=== PATIENT | female | born 1960 | race Hispanic/Latino ===

== ENCOUNTER 2021-09-15 13:44 | Emergency (ER) | payer OTHER ==
--- OUTSIDE RECORDS SUMMARY | 2021-09-15 13:49 | XMS REPORT | Continuity of Care Document ---
:1960 Author Organization [facility] t Address [address] [place] [address] Care Team Providers Name Role Phone BACCAM Primary Care Physician Unavailable DR SEDA Attending Clinician Unavailable [phone] Attending Clinician Unavailable [id number] Attending Clinician Unavailable DR Anastasia PURVIS Attending Clinician Unavailable Ahmed, Sampson Attending Clinician Unavailable Anastasia Nino Attending Clinician Unavailable DR DAMIÁN Attending Clinician Unavailable Susan Mcgregor Attending Clinician Unavailable DR NASREEN Attending Clinician Unavailable DR Anjana GIL Attending Clinician Unavailable Ofelia Attending Clinician Unavailable DR BEATRIZ Attending Clinician Unavailable DR Jaun HENDERSON Attending Clinician Unavailable DR Irasema MASON Attending Clinician Unavailable DR Andressa BENITES Attending Clinician Unavailable RASHAAD, Attending Clinician Unavailable DR ZARA Attending Clinician Unavailable DR SARIKA Attending Clinician Unavailable DR MEGAN Attending Clinician Unavailable DR MIGUEL ANGEL Attending Clinician Unavailable DR Jaylene CALLES Attending Clinician Unavailable DR SEDA Admitting Clinician Unavailable DR Anastasia PURVIS Admitting Clinician Unavailable Balbir, Sampson Admitting Clinician Unavailable Physician, Primary or Family Admitting Clinician Unavailyusef STEEL DR Admitting Clinician Unavailable Susan Mcgregor Admitting Clinician Unavailable DR NASREEN Admitting Clinician Unavailable DR Anjana GIL Admitting Clinician Unavailable Ofelia Admitting Clinician Unavailable DR BEATRIZ Admitting Clinician Unavailable DR Jaun HENDERSON Admitting Clinician Unavailable DR Irasema MASON Admitting Clinician Unavailable DR Andressa BENITES Admitting Clinician Unavailable DR RASHAAD Admitting Clinician Unavailable DR ZARA Admitting Clinician Unavailable DR SARIKA Admitting Clinician Unavailable DR MEGAN Admitting Clinician Unavailable DR MIGUEL ANGEL Admitting Clinician Unavailable DR Jaylene CALLES Admitting Clinician Unavailable Payers Payer Name Policy Type Policy Number Effective Date Expiration Date Jaylene galarza MEDICARE - OP [id number] MEDICARE - OP [id number] MEDICARE - OP [id number] 2021 00:00:00 [id number] 2021 00:00:00 0700 [id number] 2015 00:00:00 [place]IC[place]: [id number] 2003 [employer] [facility] 00:00:00 [facility] [id number] 2016 [facility] 00:00:00 PLUS - SKILLED NURSING CARE Problems Condition Condition Condition Status Onset Resolution Last Treating Co mments Source Name Details Category Date Date Treatment Clinician Date Bipolar II Bipolar II Problem Active M [facility] disorder Disorder 09-17 [facility] Allergies, Adverse Reactions, Alerts Allergy Allergy Status Severity Reaction(s) Onset Inactive Treating Comm ents Source Name Type Date Date Clinician aspirin DA Active U UNKNOWN [facility] 04-27 [place] 00:00: [facility] 00 are [facility] ASPIRIN DA Active SEVERE rash [facility] No Known MA Active UNKNOWN [facility] Gabapent DA Active Unknown [facility] IV Dye, DA Active Unknown [facility] Aspirin DA Active Unknown [facility] GABAPENT DA Active SEVERE rash [place] [facility] Social History Smoking Status Start Date Stop Date Source Heavy Tobacco Smoker [facility] Medications Ordered Filled Start Stop Current Ordering Indication Dosage Frequency Signature Comments Components Source Medication Medication Date Date Medication? Clinician (SIG) Name Name acetaminoph acetaminoph No acetaminop [place] en 300 en 300 hen 300 da mg-codeine mg-codeine mg-codeine [facility] 30 mg 30 mg 30 mg al tablet tablet tablet [facility] acetaminoph acetaminoph No acetaminop [place] en 320.5 en 320.5 hen 320.5 da mg-caffeine mg-caffeine mg-caffein [facility] 30 30 e 30 al mg-dihydroc mg-dihydroc mg-dihydro Health odeine 16 odeine 16 codeine 16 Outreac mg capsule mg capsule mg capsule h Program alprazolam alprazolam No alprazolam [place] 0.25 mg 0.25 mg 0.25 mg da tablet tablet tablet [facility] alprazolam alprazolam No alprazolam [place] 0.5 mg 0.5 mg 0.5 mg da tablet tablet tablet [facility] amoxicillin amoxicillin No amoxicilli [place] 500 mg 500 mg n 500 mg da capsule capsule capsule [facility] bromphenira bromphenira No bromphenir [place] mine-pseudo mine-pseudo amine-pseu da ephedrine-D ephedrine-D doephedrin [facility] M 2 mg-30 M 2 mg-30 e-DM 2 al mg-10 mg/5 mg-10 mg/5 mg-30 He alth mL oral mL oral mg-10 mg/5 Out reac syrup syrup mL oral h syrup Program cefuroxime cefuroxime No cefuroxime [place] axetil 250 axetil 250 axetil 250 da mg tablet mg tablet mg tablet [facility] Chantix 1 Chantix 1 No Chantix 1 [place] mg tablet mg tablet mg tablet da [facility] ciprofloxac ciprofloxac No ciprofloxa [place] in 500 mg in 500 mg jenna 500 mg da tablet tablet tablet [facility] citalopram citalopram No citalopram [place] 20 mg 20 mg 20 mg da tablet tablet tablet [facility] clotrimazol clotrimazol No clotrimazo [place] e 1 % e 1 % le 1 % da topical topical topical [facility] cream cream cream ga [facility] Constulose Constulose No Constulose [place] 10 gram/15 10 gram/15 10 gram/15 da mL oral mL oral mL oral [facility] solution solution solution ga [facility] cyclobenzap cyclobenzap No cyclobenza [place] rine 10 mg rine 10 mg yenny 10 da tablet tablet mg tablet [facility] doxycycline doxycycline No doxycyclin [place] hyclate 100 hyclate 100 e hyclate da mg tablet mg tablet 100 mg Epi scop tablet al [facility] Program doxycycline doxycycline No doxycyclin [place] monohydrate monohydrate e d a 100 mg 100 mg monohydrat [facility] op capsule capsule e 100 mg al capsule Health Outre[facility] Program doxycycline doxycycline No doxycyclin [place] monohydrate monohydrate e d a 100 mg 100 mg monohydrat [facility] op tablet tablet e 100 mg al tablet [facility] Out[facility] Program fenoprofen fenoprofen No fenoprofen [place] 600 mg 600 mg 600 mg da tablet tablet tablet [facility] furosemide furosemide No furosemide [place] 20 mg 20 mg 20 mg da tablet tablet tablet [facility] gentamicin gentamicin No gentamicin [place] 0.1 % 0.1 % 0.1 % da topical topical topical [facility] ointment ointment ointment al [facility] griseofulvi griseofulvi No griseofulv [place] n microsize n microsize in d a 500 mg 500 mg microsize [facility] tablet tablet 500 mg al tablet [facility] hydrocodone hydrocodone No hydrocodon [place] 10 10 e 10 da mg-acetamin mg-acetamin mg-acetami [facility] ophen 325 ophen 325 nophen 325 al mg tablet mg tablet mg tablet [facility] hydroxyzine hydroxyzine No hydroxyzin [place] HCl 25 mg HCl 25 mg e HCl 25 d a tablet tablet mg tablet [facility] lithium lithium No lithium [place] carbonate carbonate carbonate da 150 mg 150 mg 150 mg [facility] capsule capsule capsule al [facility] nitrofurant nitrofurant No nitrofuran [place] oin oin toin da macrocrysta macrocrysta macrocryst [facility] l 100 mg l 100 mg al 100 mg al capsule capsule capsule [facility] Program pantoprazol pantoprazol No pantoprazo [place] e 20 mg e 20 mg le 20 mg da tablet,lennie tablet,lennie tablet,del [facility] yed release yed release ayed a l release [facility] Program pantoprazol pantoprazol No pantoprazo [place] e 40 mg e 40 mg le 40 mg da tablet,lennie tablet,lennie tablet,del [facility] yed release yed release ayed a l release [facility] prednisone prednisone No prednisone [place] 10 mg 10 mg 10 mg da tablet tablet tablet [facility] quetiapine quetiapine No quetiapine [place] ER 150 mg ER 150 mg ER 150 mg da tablet,exte tablet,exte tablet,ext [facility] nded nded ended al release 24 release 24 release 24 Health hr hr hr Outreac h Program risperidone risperidone No risperidon [place] 0.5 mg 0.5 mg e 0.5 mg da tablet tablet tablet [facility] sulfamethox sulfamethox No sulfametho [place] azole 800 azole 800 xazole 800 da mg-trimetho mg-trimetho mg-trimeth [facility] prim 160 mg prim 160 mg oprim 160 al tablet tablet mg tablet Health Outre h Program tramadol 50 tramadol 50 No tramadol [place] mg tablet mg tablet 50 mg da tablet [facility] Ventolin Ventolin No Ventolin [place] HFA 90 HFA 90 HFA 90 da mcg/actuati mcg/actuati mcg/actuat [facility] on aerosol on aerosol ion al inhaler inhaler aerosol Health inhaler Outre h Program Vital Signs Vital Name Observation Time Observation Value Comments Source Height 2021-07-21 00:32:00 154.94 CM Weight 2021-07-21 00:32:00 92.98 KG Height 2021-05-27 05:57:00 154.94 CM Weight 2021-05-27 05:57:00 99.79 KG Height 2021-03-29 00:16:00 154.94 CM Weight 2021-03-29 00:16:00 107.04 KG Height 2021-03-09 00:30:00 154.94 CM Weight 2021-03-09 00:30:00 107.04 KG Height 2021-01-26 00:20:00 154.94 CM Weight 2021-01-26 00:20:00 107.04 KG Height 2019-04-03 13:59:00 154.94 CM Weight 2019-04-03 13:59:00 101.6 KG Height 2019-03-27 15:56:00 154.94 CM Weight 2019-03-27 15:56:00 101.6 KG Height 2018-07-18 18:06:00 154.94 CM Weight 2018-07-18 18:06:00 106.14 KG Procedures Procedure Date / Time Performed Performing Clinician [facility] shar [id number] 2021-05-30 00:00:00 CHAKR.05 [facility] [id number] 2021-05-30 00:00:00 CHAKR.05 [facility] [id number] 2021-05-30 00:00:00 CHAKR.05 [facility] [id number] 2021-05-30 00:00:00 CHAKR.05 [facility] [id number] 2021-05-30 00:00:00 CHAKR.05 [facility] [id number] 2021-05-30 00:00:00 CHAKR.05 [facility] [id number] 2021-05-30 00:00:00 MUM [facility] [id number] 2021-04-27 00:00:00 [facility] Encounters Start End Encounter Admission Attending Care Care Encounter Source Date/Time Date/Time Type Type Clinicians Facility Department ID 2021-08-13 Outpatient VERA STACKPO [id number] [place] 08:50:33 [id number] [place] [id number] 2021-07-14 Outpatient ELCARSONPO ELCAMPO [id number] [place] 09:53:28 [id number] [facility] 2021-05-14 Outpatient [facility] [id number] [facility] 17:18:15 [id number] [facility] 2021-08-14 2021-08-14 Outpatient VERA COREY [facility] [id number] [place] 08:51:00 08:51:00 [id number] [place] [facility] [id number] [facility] 2021-07-21 2021-07-21 Outpatient Shar PURVIS Omar [facility] [id number] [facility] 00:29:00 02:15:00 [facility] 2021-07-14 2021-07-14 Outpatient M VERA STACKPO [facility] [id number] [place] 10:03:00 20:46:00 [id number] [place] [facility] [id number] [facility] 2021-05-28 2021-05-31 Inpatient EM Ahmed, [facility] INTM.01 BP30 [id number] [facility] 20:04:00 19:00:00 [id number] [facility] are [facility] 2021-05-28 2021-05-31 Inpatient EM Ahmed, [facility] INTM.01 BP00 [id number] [facility] 20:04:00 19:00:00 90 [facility] are [facility] 2021-05-28 2021-05-28 Outpatient DONAVAN NinoNW REF [id number] [facility] 19:16:00 19:16:00 Henrique [id number] [facility] are [facility] 2021-05-27 2021-05-27 Outpatient Shar STEEL [facility] [id number] [facility] 05:48:00 07:50:00 SHREYAS [facility] 2021-05-14 2021-05-19 Inpatient EL Penniemed, [facility] ADMI BP30 [id number] [facility] 14:05:00 10:58:00 [id number] [facility] are [facility] 2021-05-14 2021-05-19 Inpatient EL Ahmed, [facility] ADMI [id number] [facility] 14:05:00 10:58:00 47 [facility] are [facility] 2021-05-15 2021-05-15 Outpatient Balbir, [facility] HCANW REF [id number] [facility] 15:56:00 15:56:00 [id number] [facility] are [facility] 2021-04-27 2021-04-27 Inpatient EL Ahmed, [facility] MEDI.01 BP30 [id number] [facility] 08:33:00 11:30:00 [id number] [facility] are [facility] 2021-03-29 2021-03-29 Outpatient MARCI CHEUNG [facility] [id number] [facility] 00:05:00 01:13:00 [facility] 2021-03-09 2021-03-09 Outpatient E JEFFERY, [facility] [id number] [facility] 00:24:00 03:18:00 WALLACE [facility] 2021-01-26 2021-01-26 Outpatient E JEFFERY [facility] [id number] [facility] 00:17:00 01:23:00 [facility] 2020-01-18 2020-01-18 Outpatient Benson_Donn SULLIVANHOP CAHOP [id number] [place] 11:45:00 11:45:00 e [id number] [facility] 2019-04-29 2019-04-29 Outpatient Benson_Donn SULLIVANHOP MEHOP [id number] [place] 03:23:00 03:23:00 e [id number] [facility] 2019-04-03 2019-04-03 Outpatient E STEEL, [facility] [id number] [facility] 13:52:00 14:48:00 SHREYAS [facility] 2019-03-27 2019-03-27 Outpatient E BEATRIZ, [facility] [id number] [facility] 15:56:00 17:00:00 ANIBAL [facility] 2019-03-02 2019-03-02 Leonid ENRIQUE [place] - [id number] M [facility] 00:00:00 00:00:[address] da 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 2019-01-27 2019-01-27 Outpatient E BEATRIZ [facility] [id number] [facility] 08:52:00 09:30:00 ANIBAL [facility] 2019-01-09 2019-01-09 Outpatient E BEATRIZ [facility] [id number] [facility] 13:23:00 14:00:00 [facility] 2018-12-30 2018-12-31 Outpatient E MARCI DOWNEY [facility] [id number] [facility] 22:58:00 00:30:00 [facility] 2018-12-27 2018-12-27 Outpatient E MARCI DOWNEY [facility] [id number] [facility] 20:15:00 20:51:00 [facility] 2018-12-21 2018-12-21 Outpatient E JONI HENDERSON [facility] [id number] [facility] 14:57:00 16:29:00 [facility] 2018-12-16 2018-12-16 Outpatient E MARLON [facility] [id number] [facility] 18:53:00 19:21:00 DOMINIQUE [facility] 2018-12-15 2018-12-15 Outpatient E BEATRIZ [facility] [id number] [facility] 19:25:00 20:35:00 [facility] 2018-12-10 2018-12-10 Outpatient E BENITES, [facility] [id number] [facility] 20:55:00 21:30:00 PAWAN [facility] 2018-12-09 2018-12-09 Outpatient E LILA NEIL [facility] [id number] [facility] 16:33:00 17:20:00 [facility] 2018-11-21 2018-11-21 Outpatient E ZARA [facility] [id number] [facility] 21:31:00 21:43:00 HASAN [facility] 2018-11-21 2018-11-21 Outpatient E SHEIKH [facility] [id number] [facility] 04:48:00 05:58:00 WASIM [facility] 2018-11-10 2018-11-11 Outpatient E SHEIKH [facility] [id number] [facility] 23:41:00 01:16:00 WASIM [facility] 2018-11-07 2018-11-07 Outpatient E BEATRIZ [facility] [id number] [facility] 15:27:00 16:34:00 ANIBAL [facility] 2018-11-02 2018-11-02 Outpatient E LILA NEIL [facility] [id number] [facility] 20:45:00 22:15:00 [facility] 2018-10-31 2018-10-31 Outpatient E JONI HENDERSON [facility] [id number] [facility] 21:09:00 22:45:00 [facility] 2018-10-29 2018-10-29 Outpatient E BENITES, [facility] [id number] [facility] 22:10:00 22:46:00 [facility] 2018-10-27 2018-10-27 Outpatient E MARCI DOWNEY [facility] [id number] [facility] 20:01:00 21:21:00 [facility] 2018-10-15 2018-10-15 Outpatient E PURVIS [facility] [id number] [facility] 14:34:00 16:32:00 [facility] 2018-10-08 2018-10-08 Outpatient E ANGELINA GUZMAN [facility] [id number] [facility] 13:41:00 18:34:00 [facility] 2018-10-07 2018-10-07 Outpatient E MARCI DOWNEY [facility] [id number] [facility] 20:39:00 21:52:00 [facility] 2018-09-16 2018-09-17 Outpatient E JONI HENDERSON [facility] [id number] [facility] 23:49:00 01:16:00 [facility] 2018-09-14 2018-09-14 Outpatient E BEATRIZ [facility] [id number] [facility] 21:26:00 22:27:00 ANIBAL [facility] 2018-09-01 2018-09-01 Outpatient E LILA NEIL [facility] [id number] [facility] 20:57:00 22:19:00 [facility] 2018-09-01 2018-09-01 Outpatient E LAUREANO MICHELLE [facility] [id number] [facility] 16:36:00 18:35:00 [facility] 2018-08-27 2018-08-27 Outpatient E BA, LILA [facility] [id number] [facility] 21:54:00 23:02:00 [facility] 2018-08-24 2018-08-24 Outpatient E JONI HENDERSON [facility] [id number] [facility] 19:52:00 20:35:00 [facility] 2018-08-11 2018-08-11 Outpatient E POTMYRTLE, [facility] [id number] [facility] 22:29:00 22:55:00 BETTY [facility] 2018-07-26 2018-07-26 Outpatient E EBATRIZ [facility] [id number] [facility] 15:46:00 17:10:00 [facility] 2018-07-20 2018-07-20 Outpatient E MARLON, [facility] [id number] [facility] 16:09:00 18:05:00 [facility] 2018-07-18 2018-07-18 Outpatient E BEATRIZ [facility] [id number] [facility] 18:00:00 19:54:00 [facility] 2018-[facility]-18 2018-07-18 Outpatient E [facility] [id number] [facility] 18:05:00 18:05:00 [facility] 2018-07-16 2018-07-16 Outpatient E RASHAAD, LILA [facility] [id number] [facility] 18:21:00 19:20:00 [facility] 2018-07-04 2018-07-04 Outpatient E POTMYRTLE, [facility] [id number] [facility] 19:44:00 21:18:00 BETTY [facility] 2018-06-05 2018-06-05 Outpatient E JONI HENDERSON [facility] [id number] [facility] 19:35:00 21:08:00 [facility] Results Test Description Test Time Test Comments Results Result [facility] e Comments CT CHEST W/O 2021-07-21 CONTRAST *OW* 01:26:17 [facility] : 1960 Sex: F Ex am: CT thorax without contrast.Location: H 12History: Rib painTechnique: Unenhanced slices were taken from the apices of the lungs, through the upper abdomen. Sagittal and coronal reformations were performed. One or more of the following dose reduction techniques were used: Automated exposure control, adjustment of the mA and/or kV according to patient size, and/or utilization of iterative reconstruction technique.Findings:Th e lungs are emphysematous but clear. NNo infiltration or effusion is seen. No mass or nodule is seen.The pulmonary vasculature is normal. No pulmonary venous congestion or arterial hypertension is seen.The mediastinum and the pulmonary royce are normal. No lymphadenopathy is present. The heart size is enlarged with coronary artery calcifications noted. No pericardial effusion is seen.Anterior left 6th and 7th rib fractures are noted.The visualized upper abdominal organs are unremarkable. A right hepatic cyst is notedNo incidental thyroid nodules are noted.Impression: 1. Left 6th and 7th rib fractures.2. No acute disease.3. COPD4. Cardiomegaly with CAD.Electronically signed by: Misbah Colindres MD 07/21/2021 1:26 AM CDT CBC W/AUTO DIFF 2021-05-31 05:18:00 Test Item Value Reference Range Interpretation Comme nts WHITE BLOOD CELL (test code = WBC) 8.7 x10 3/uL 4.8-10.8 N RED BLOOD CELL (test code = RBC) 2.65 x10 6/uL 4.20-5.40 L HEMOGLOBIN (test code = HGB) 10.2 g/dL 12.0-16.0 L HEMATOCRIT (test code = HCT) 31.8 % 37.0-47.0 L MEAN CELL VOLUME (test code = MCV) 120.0 fL 81.0-99.0 H MEAN CELL HGB (test code = MCH) 38.5 pg 27-31 H MEAN CELL HGB CONCENTRATION (test code = MCHC) 32.1 G/DL 33-36.5 L RED CELL DISTRIBUTION WIDTH (test code = RDW) 14.4 % 12.9-16. 9 N PLATELET COUNT (test code = PLT) 157 x10 3/uL 150-440 N MEAN PLATELET VOLUME (test code = MPV) 10.8 fL 8.9-12.4 N NEUTROPHIL % (test code = NT%) 71.8 % 42.2-75.2 N LYMPHOCYTE % (test code = LY%) 18.0 % 20.5-51.1 L MONOCYTE % (test code = MO%) 7.0 % 1.7-9.3 N EOSINOPHIL % (test code = EO%) 2.9 % 0.0-7.0 N BASOPHIL % (test code = BA%) 0.1 % 0-2.5 N NEUTROPHIL # (test code = NT#) 6.26 x10 3/uL 1.80-7.70 N LYMPHOCYTE # (test code = LY#) 1.57 x10 3/uL 1.00-4.80 N MONOCYTE # (test code = MO#) 0.61 x10 3/uL 0.00-0.80 N EOSINOPHIL # (test code = EO#) 0.25 x10 3/uL 0.00-0.45 N BASOPHIL # (test code = BA#) 0.01 x10 3/uL 0.0-0.20 N [id number] 23:23:00 Test Item Value Reference Range Interpretation Comments VANCOMYCIN (test code = VANCO) 13.2 mcg/mL COAGULATION TIME [id number] 17:31:00 Test Item Value Reference Range Interpretation Comments COAGULATION TIME ACTIVATED (test 291 SECONDS 74-137 H code = ACT) THROMBOPLASTIN TIME [id number] 13:25:00 Test Item Value Reference Range Interpretation Comments THROMBOPLASTIN TIME 115.0 SECONDS 23.8-34.8 HH Critica l Value PARTIAL (test code = reporte d toFirst PTT) Name:ASHA Last Name:ANA LTS READ BACK AND VERIFIEDby [facility] [id number], on 05/30/21, @ 6272.INTERPRETA TIVE DATA:Therapeuti c range: Unfractionated heparin:55 - 80 seconds Argatroban:1.5 to 3 times the basel ine PTT [id number] 13:25:00 Test Item Value Reference Range Interpretation Comments FIBRINOGEN (test code = FIB) 277 mg/dL 200-400 N BASIC METABOLIC [id number] 13:11:00 Test Item Value Reference Range Interpretation Comments SODIUM (test code 148 mmol/L 136-145 H Please not e: New = NA) Reference Range May 2020 POTASSIUM (test 3.6 mmol/L 3.5-5.1 N code = K) CHLORIDE (test 121 mmol/L 98-107 H Please note: New code = CL) Reference Range May 2020 CARBON DIOXIDE 23 mmol/L 20-31 N Please note: New (test code = CO2) Reference Range May 2020 GLUCOSE (test code 101 mg/dL 74-106 N Please no te: New = GLU) Reference Range May 2020 BLOOD UREA < 5 mg/dL 9-23 L Please note: Ne w NITROGEN (test Reference Ran ge Feb code = BUN) 2020 GLOMERULAR >=60 max >60 Units are FILTRATION RATE estimate mL/min mL/min/1. 73m2 The (test code = GFR) estimated glomerular filtration rate is computed usingpatient ra ce, age (>18), sex, and serum creatinin e. If anyof the neede d data elements a re missing the Laboratory lily ot compute an estimation of t he glomerular filtration rate . CREATININE (test 0.70 mg/dL 0.55-1.02 N Please note : New code = CREAT) Reference Rang e May 2020 CALCIUM (test code 8.3 mg/dL 8.7-10.4 L Please no te: New = CA) Reference Range May 2020 CBC W/AUTO [id number] 12:14:00 Test Item Value Reference Range Interpretation Comments WHITE BLOOD CELL (test code = 8.0 x10 3/uL 4.8-10.8 N WBC) RED BLOOD CELL (test code = 2.70 x10 6/uL 4.20-5.40 L RBC) HEMOGLOBIN (test code = HGB) 10.5 g/dL 12.0-16.0 L HEMATOCRIT (test code = HCT) 32.2 % 37.0-47.0 L MEAN CELL VOLUME (test code = 119.3 fL 81.0-99.0 H MCV) MEAN CELL HGB (test code = MCH) 38.9 pg 27-31 H MEAN CELL HGB CONCENTRATION 32.6 G/DL 33-36.5 L (test code = MCHC) RED CELL DISTRIBUTION WIDTH 14.3 % 12.9-16.9 N (test code = RDW) PLATELET COUNT (test code = 192 x10 3/uL 150-440 N PLT) MEAN PLATELET VOLUME (test code 10.6 fL 8.9-12.4 N = MPV) NEUTROPHIL % (test code = NT%) 67.0 % 42.2-75.2 N LYMPHOCYTE % (test code = LY%) 20.4 % 20.5-51.1 L MONOCYTE % (test code = MO%) 5.9 % 1.7-9.3 N EOSINOPHIL % (test code = EO%) 5.9 % 0.0-7.0 N BASOPHIL % (test code = BA%) 0.5 % 0-2.5 N NEUTROPHIL # (test code = NT#) 5.35 x10 3/uL 1.80-7.70 N LYMPHOCYTE # (test code = LY#) 1.63 x10 3/uL 1.00-4.80 N MONOCYTE # (test code = MO#) 0.47 x10 3/uL 0.00-0.80 N EOSINOPHIL # (test code = EO#) 0.47 x10 3/uL 0.00-0.45 H BASOPHIL # (test code = BA#) 0.04 x10 3/uL 0.0-0.20 N RECOLLECTVANCOMYCIN [id number] 22:10:00 Test Item Value Reference Range Interpretation Comments VANCOMYCIN TROUGH (test code = 30.3 mcg/dL 10.0-20.0 H VANCT) PROTHROMBIN [id number] 21:12:00 Test Item Value Reference Range Interpretation Comments PROTHROMBIN TIME 11.5 SECONDS 10.3-12.9 N PATIENT (test code = PTP) INTERNATIONAL 1.01 INR UNIT 0.9-1.11 N The INR is us eful only NORMAL RATIO (test for monit oring code = INR) anticoagulant therapy.It may be unreliable in t he initial phase o f antigoagulation and in unstable patien ts. Indication for Anticoagulation Recommend ed INR 1. Prevention o f venous thomboembolism 2.0-3.0in high -risk patients; treat ment of venousthrombosi s and pulmonary embol ism aftera course o f heparin; preven tion of systemicembolis m in a variety of cond itions, including atria l fibrillation an d prothetic tissu e heart valves, 2. Pros thetic mechanical hear t valves; 2.5-3.5recurren t systemic emboli sm. RECOLLECTTHROMBOPLASTIN TIME [id number] 21:12:00 Test Item Value Reference Interpretation Comments Range THROMBOPLASTIN TIME 54.3 SECONDS 23.8-34.8 H SAMPLE W RECOLLECTED PARTIAL (test code AND MATCH ES PREVIOUS = PTT) RESULTINTERPRET ATIVE DATA:Therapeuti c range: Unfractionated heparin:55 - 80 seconds Argatroban:1.5 to 3 times the baseline PT T RECOLLECTCBC W/AUTO [id number] 05:02:00 Test Item Value Reference Range Interpretation Comments WHITE BLOOD CELL (test code = 6.9 x10 3/uL 4.8-10.8 N WBC) RED BLOOD CELL (test code = 2.72 x10 6/uL 4.20-5.40 L RBC) HEMOGLOBIN (test code = HGB) 10.3 g/dL 12.0-16.0 L HEMATOCRIT (test code = HCT) 31.6 % 37.0-47.0 L MEAN CELL VOLUME (test code = 116.2 fL 81.0-99.0 H MCV) MEAN CELL HGB (test code = MCH) 37.9 pg 27-31 H MEAN CELL HGB CONCENTRATION 32.6 G/DL 33-36.5 L (test code = MCHC) RED CELL DISTRIBUTION WIDTH 13.7 % 12.9-16.9 N (test code = RDW) PLATELET COUNT (test code = 189 x10 3/uL 150-440 N PLT) MEAN PLATELET VOLUME (test code 11.2 fL 8.9-12.4 N = MPV) NEUTROPHIL % (test code = NT%) 52.4 % 42.2-75.2 N LYMPHOCYTE % (test code = LY%) 33.2 % 20.5-51.1 N MONOCYTE % (test code = MO%) 8.3 % 1.7-9.3 N EOSINOPHIL % (test code = EO%) 5.4 % 0.0-7.0 N BASOPHIL % (test code = BA%) 0.6 % 0-2.5 N NEUTROPHIL # (test code = NT#) 3.60 x10 3/uL 1.80-7.70 N LYMPHOCYTE # (test code = LY#) 2.28 x10 3/uL 1.00-4.80 N MONOCYTE # (test code = MO#) 0.57 x10 3/uL 0.00-0.80 N EOSINOPHIL # (test code = EO#) 0.37 x10 3/uL 0.00-0.45 N BASOPHIL # (test code = BA#) 0.04 x10 3/uL 0.0-0.20 N RECOLLECTPROTHROMBIN [id number] 04:56:00 Test Item Value Reference Range Interpretation Comments PROTHROMBIN TIME 12.6 SECONDS 10.3-12.9 N PATIENT (test code = PTP) INTERNATIONAL 1.10 INR UNIT 0.9-1.11 N The INR is us eful only NORMAL RATIO (test for monit oring code = INR) anticoagulant therapy.It may be unreliable in t he initial phase o f antigoagulation and in unstable patien ts. Indication for Anticoagulation Recommend ed INR 1. Prevention o f venous thomboembolism 2.0-3.0in high -risk patients; treat ment of venousthrombosi s and pulmonary embol ism aftera course o f heparin; preven tion of systemicembolis m in a variety of cond itions, including atria l fibrillation an d prothetic tissu e heart valves, 2. Pros thetic mechanical hear t valves; 2.5-3.5recurren t systemic emboli sm. THROMBOPLASTIN TIME [id number] 04:56:00 Test Item Value Reference Range Interpretation Comments THROMBOPLASTIN TIME 128.4 SECONDS 23.8-34.8 HH Tristian l Value PARTIAL (test code = reporte d toFirst PTT) Name:JOS campuzano Name:ROBYN LOCKE READ BACK AND VERIFIEDby STAR ROGERS, on 05/29/21, @ 0369.INTERPRETA TIVE DATA:Therapeuti c range: Unfractionated heparin:55 - 80 seconds Argatroban:1.5 to 3 times the basel ine PTT BASIC METABOLIC [id number] 04:05:00 Test Item Value Reference Range Interpretation Comments SODIUM (test code 148 mmol/L 136-145 H Please not e: New = NA) Reference Range May 2020 POTASSIUM (test 3.3 mmol/L 3.5-5.1 L code = K) CHLORIDE (test 120 mmol/L 98-107 H Please note: New code = CL) Reference Range May 2020 CARBON DIOXIDE 18 mmol/L 20-31 L Please note: New (test code = CO2) Reference Range May 2020 GLUCOSE (test code 85 mg/dL 74-106 N Please no te: New = GLU) Reference Range May 2020 BLOOD UREA < 5 mg/dL 9-23 L Please note: Ne w NITROGEN (test Reference Ran ge Feb code = BUN) 2020 GLOMERULAR >=60 max >60 Units are FILTRATION RATE estimate mL/min mL/min/1. 73m2 The (test code = GFR) estimated glomerular filtration rate is computed usingpatient ra ce, age (>18), sex, and serum creatinin e. If anyof the neede d data elements a re missing the Laboratory lily ot compute an estimation of t he glomerular filtration rate . CREATININE (test 0.70 mg/dL 0.55-1.02 N Please note : New code = CREAT) Reference Rang e May 2020 CALCIUM (test code 7.4 mg/dL 8.7-10.4 L Please no te: New = CA) Reference Range May 2020 [id number] 04:02:00 Test Item Value Reference Range Interpretation Comments PHOSPHOROUS (test code 3.5 mg/dL 2.4-5.1 N Brigido kern note: New = PHOS) Reference Range May 2020 [id number] 04:02:00 Test Item Value Reference Range Interpretation Comments MAGNESIUM (test code = 1.8 mg/dL 1.6-2.6 N Pleas e note: New MAG) Reference Range May 2020 VANCOMYCIN [id number] 02:40:00 Test Item Value Reference Range Interpretation Comments VANCOMYCIN TROUGH (test code = 36.1 mcg/dL 10.0-20.0 H VANCT) LACTIC [id number] 00:53:00 Test Item Value Reference Range Interpretation Comments LACTIC ACID (test code = LACT) 1.50 mmol/L 0.5-2.0 N COVID 19 INHOUSE [id number] 22:11:00 Test Item Value Reference Range Interpretation Comments COVID 19 INHOUSE NEGATIVE NEGATIVE Negative re sults, from AG (test code = patients wit h symptom onset [id number]) beyondfive days , should be treated as pres umptive and confirmationwit h a molecular assay, if helena leal for patientmanageme nt, may be performed. Nega tive results do not ruleout COVID-19 and should not be u sed as the sole basis fort reatment or patient managem ent decisions, includinginfect ion control decisions. Nega tive results should beconsid ered in the context of a pa tient's recent exposure s,history and the presence of clinical signs and sympt omsconsistent with COVID-19. BASIC METABOLIC [id number] 19:38:00 Test Item Value Reference Range Interpretation Comments SODIUM (test code 143 mmol/L 136-145 N Please not e: New = NA) Reference Range May 2020 POTASSIUM (test 3.6 mmol/L 3.5-5.1 N code = K) CHLORIDE (test 115 mmol/L 98-107 H Please note: New code = CL) Reference Range May 2020 CARBON DIOXIDE 17 mmol/L 20-31 L Please note: New (test code = CO2) Reference Range May 2020 GLUCOSE (test code 90 mg/dL 74-106 N Please no te: New = GLU) Reference Range May 2020 BLOOD UREA < 5 mg/dL 9-23 L Please note: Ne w NITROGEN (test Reference Ran ge Feb code = BUN) 2020 GLOMERULAR >=60 max >60 Units are FILTRATION RATE estimate mL/min mL/min/1. 73m2 The (test code = GFR) estimated glomerular filtration rate is computed usingpatient ra ce, age (>18), sex, and serum creatinin e. If anyof the neede d data elements a re missing the Laboratory lily ot compute an estimation of t he glomerular filtration rate . CREATININE (test 0.80 mg/dL 0.55-1.02 N Please note : New code = CREAT) Reference Rang e May 2020 CALCIUM (test code 8.4 mg/dL 8.7-10.4 L Please no te: New = CA) Reference Range May 2020 LIVER FUNCTION [id number] 19:38:00 Test Item Value Reference Range Interpretation Comments TOTAL PROTEIN (test 7.0 g/dL 5.7-8.2 N Please n ote: New code = PROT) Reference Range May 2020 ALBUMIN (test code = 2.8 g/dL 3.2-4.8 L Please note: New ALB) Reference Range May 2020 BILIRUBIN TOTAL (test 0.3 mg/dL 0.3-1.2 N Please note: New code = BILT) Reference Range May 2020 BILIRUBIN DIRECT (test 0.1 mg/dL <0.3 N Pleas e note: New code = BILD) Reference Range May 2020 SGOT/AST (test code = 19 U/L <34 N Please note: New AST) Reference Range May 2020 SGPT/ALT (test code = 12 U/L 10-49 N Please note: New ALT) Reference Range May 2020 ALKALINE PHOSPHATASE 159 U/L 46-116 H Please note: New (test code = ALKP) Reference Range May 2020 PROTHROMBIN [id number] 19:38:00 Test Item Value Reference Range Interpretation Comments PROTHROMBIN TIME 11.4 SECONDS 10.3-12.9 N PATIENT (test code = PTP) INTERNATIONAL 1.00 INR UNIT 0.9-1.11 N The INR is us eful only NORMAL RATIO (test for monit oring code = INR) anticoagulant therapy.It may be unreliable in t he initial phase o f antigoagulation and in unstable patien ts. Indication for Anticoagulation Recommend ed INR 1. Prevention o f venous thomboembolism 2.0-3.0in high -risk patients; treat ment of venousthrombosi s and pulmonary embol ism aftera course o f heparin; preven tion of systemicembolis m in a variety of cond itions, including atria l fibrillation an d prothetic tissu e heart valves, 2. Pros thetic mechanical hear t valves; 2.5-3.5recurren t systemic emboli sm. THROMBOPLASTIN TIME [id number] 19:38:00 Test Item Value Reference Range Interpretation Comments THROMBOPLASTIN TIME 31.6 SECONDS 23.8-34.8 N INTERPRE TATIVE PARTIAL (test code = DATA:peutic PTT) range: Unfractionated heparin:55 - 80 seconds Argatroban:1.5 to 3 times the basel ine PTT [id number] 19:38:00 Test Item Value Reference Range Interpretation Comments FIBRINOGEN (test code = FIB) 317 mg/dL 200-400 N LACTIC [id number] 19:35:00 Test Item Value Reference Range Interpretation Comments LACTIC ACID (test 4.40 mmol/L 0.5-2.0 HH Critical V alue reported code = LACT) toFirst Name:deandre gallo Last Name:shogb sheba rnRESULTS READ BACK AND VERIFIEDby STAR MOSHER, on 05/28/21, @ 193 5. - XR FOOT 3 + V [id number] 19:33:00 [facility] : 1960 Sex: FPatient Name: TYRESE PUCKETT Unit No: [id number] EXAMS: CPT CODE: [id number] XR FOOT 3 + [place] [address] X-ray left foot. Location code: B2 INDICATION: Pain, rule out osteitis FINDINGS: Comparison to 05/14/2021 No evidence of an acute fracture or dislocation. Bones are mildly osteopenic. Faint cortical lucencies by the distal phalanx 1st digit may be from overlying gas in the soft tissues. Moderate soft tissue swelling about the foot, notably the 1st digit. IMPRESSION: 1. No acute osseous abnormality. 2. Faint cortical lucency by the distal phalanx 1st digit may be from overlying gas in the soft tissues versus osteomyelitis of the tuft.3. Moderate soft tissue swelling/cellulitis. Electronically Signed by Pauly Howard on05/28/2021 at 1933 Reported and signed by: Jeremy Howard M.D. CC: Herberth Blood MD Technologist: Gab Ryan Time: DAP (Gy m2): Air Kerma (mGy): Trscr Dt/Tm: 05/28/2021 (1932) by:[email or web address] Printed Date/Time: 05/28/2021 (1935) Name: TYRESE PUCKETT [facility] Phys: Herberth Montemayor MD [address] : 1960 Age: 61 Sex: [place] [id number] Loc: PGeoffreyERSExam Date: 05/28/2021 Status: REG ER PH: FAX: PAGE 1 Signed ReportCBC W/AUTO [id number] 19:27:00 Test Item Value Reference Range Interpretation Comments WHITE BLOOD CELL (test code = 10.5 x10 3/uL 4.8-10.8 N WBC) RED BLOOD CELL (test code = 2.97 x10 6/uL 4.20-5.40 L RBC) HEMOGLOBIN (test code = HGB) 11.4 g/dL 12.0-16.0 L HEMATOCRIT (test code = HCT) 34.5 % 37.0-47.0 L MEAN CELL VOLUME (test code = 116.2 fL 81.0-99.0 H MCV) MEAN CELL HGB (test code = MCH) 38.4 pg 27-31 H MEAN CELL HGB CONCENTRATION 33.0 G/DL 33-36.5 N (test code = MCHC) RED CELL DISTRIBUTION WIDTH 13.8 % 12.9-16.9 N (test code = RDW) PLATELET COUNT (test code = 231 x10 3/uL 150-440 N PLT) MEAN PLATELET VOLUME (test code 11.0 fL 8.9-12.4 N = MPV) NEUTROPHIL % (test code = NT%) 66.0 % 42.2-75.2 N LYMPHOCYTE % (test code = LY%) 24.0 % 20.5-51.1 N MONOCYTE % (test code = MO%) 6.9 % 1.7-9.3 N EOSINOPHIL % (test code = EO%) 2.3 % 0.0-7.0 N BASOPHIL % (test code = BA%) 0.4 % 0-2.5 N NEUTROPHIL # (test code = NT#) 6.95 x10 3/uL 1.80-7.70 N LYMPHOCYTE # (test code = LY#) 2.52 x10 3/uL 1.00-4.80 N MONOCYTE # (test code = MO#) 0.73 x10 3/uL 0.00-0.80 N EOSINOPHIL # (test code = EO#) 0.24 x10 3/uL 0.00-0.45 N BASOPHIL # (test code = BA#) 0.04 x10 3/uL 0.0-0.20 N - XR CHEST 1 [id number] 19:27:00 [facility] : 1960 Sex: FPatient Name: TYRESE PUCKETT Unit No: [id number] EXAMS: CPT CODE: [id number] XR CHEST 1 V [id number] HISTORY: Code sepsis Location code: [id number]: Frontal view of the chest demonstrates a mildly enlarged cardiomediastinal silhouette with central venous congestion. The trachea is midline. The lungs are clear. There is no effusion or pneumothorax. The bones are intact. IMPRESSION: Mild cardiomegaly and central venous congestion without acute decompensation at 1927 Reported and signed by: Jeremy Howard M.D. CC: Herberth Blood MD Technologist: Gab Eller Fluoro Time: DAP (Gy m2): Air Kerma (mGy): Trscr Dt/Tm: 05/28/2021 (1926) by:[email or web address] Printed Date/Time: 05/28/2021 (1929) Name: TYRESE PUCKETT [facility] Phys: Herberth Montemayor MD [address] : 1960 Age: 61 Sex: F [place] [id number] Loc: P.ERS Exam Date: 05/28/2021 Status: REG ER PH: FAX: PAGE 1 Signed ReportMetyLyte 8 Panel *OW* [id number] 06:39:00 Test Item Value Reference Range Interpretation Comments GLUCOSE (test code = GGUL) 97 mg/dL 73-118 BUN (test code = GBUN) 5 mg/dL 7-22 L CREATININE (test code = GCRE) 0.7 mg/dL 0.6-1.2 CK TOTAL (test code = GCK) 55 U/L 30-190 SODIUM (test code = GNA+) 148 mmol/L 128-145 H POTASSIUM (test code = GK+) 4.2 mmol/L 3.6-5.1 CHLORIDE (test code = GCL-) 115 mmol/L 98-108 H TCO2 (test code = GTC02) 20 mmol/L 18-33 CBC (INCLUDES AUTOMATED DIFFERENTIAL) *2021-05-27 06:26:00 Test Item Value Reference Range Interpretation Comments WBC (test code = WBC) 9.4 10\S\3/uL 4.5-11.0 RBC (test code = RBC) 3.33 10\S\6/uL 4.20-5.60 L HGB (test code = HBG) 12.7 g/dL 12.0-15.5 HCT (test code = HCT) 41.2 % 35.0-44.0 MCV (test code = MCV) 123.6 fL 81.0-99.0 H MCH (test code = MCH) 38.1 pg 27.0-31.0 H MCHC (test code = MCHC) 30.8 g/dL 32.0-36.0 L RDW (test code = RDW) 12.7 % 11.5-14.5 PLT (test code = PLT) 267 10\S\3/uL 130-400 MPV (test code = OMPV) 8.4 fL 6.2-10.2 NEUTROP # (test code = NE#) 6.1 10\S\3/uL 1.6-8.0 LYMPH # (test code = LY#) 2.5 10\S\3/uL 1.1-3.5 MID # (test code = GMID#) 0.8 10\S\3/uL 0.0-1.1 GRAN % (test code = GRA%) 64.6 % 35.0-73.0 LYMPH % (test code = GLY%) 27.0 % 20.0-55.0 MID % (test code = GMID%) 8.4 % 0.0-10.0 XR TOE/S LEFT COMPLETE 3 VIEWS *OW*2021-05-27 06:25:19 [facility] : 1960 Sex: FEXAMINATION: XR TOES 2 OR MORE VIEWSHISTORY/INDICATION: Pain in toeCOMPARISON: None.TECHNIQUE: AP, oblique and lateral views centered on the great toe are submitted.FINDINGS: There is no acute fracture, dislocation or lytic lesions. There is no periosteal reaction. There is prominent soft tissue swelling throughout the dorsal aspect of the foot. There is no soft tissue gas.IMPRESSION: 1. Prominent soft tissue swelling in the dorsal aspect of the distal foot without acute osseous findings demonstrated in the great toe.Electronically signed by: Sam Acuna MD 05/27/2021 6:25 AM [facility] [id number] 18:06:00 Test Item Value Reference Range Interpretation Comments VANCOMYCIN TROUGH (test code = 13.0 mcg/dL 10.0-20.0 N VANCT) RENAL FUNCTION [id number] 05:52:00 Test Item Value Reference Range Interpretation Comments SODIUM (test code = 145 mmol/L 136-145 N Please n ote: New NA) Reference Range May 2020 POTASSIUM (test 3.2 mmol/L 3.5-5.1 L code = K) CHLORIDE (test code 116 mmol/L 98-107 H Please n ote: New = CL) Reference Range May 2020 CARBON DIOXIDE 21 mmol/L 20-31 N Please note: New (test code = CO2) Reference Range May 2020 GLUCOSE (test code 93 mg/dL 74-106 N Please no te: New = GLU) Reference Range May 2020 BLOOD UREA NITROGEN 5 mg/dL 9-23 L Please n ote: New (test code = BUN) Reference Range May 2020 GLOMERULAR >=60 max >60 Units are FILTRATION RATE estimate mL/min mL/min/1. 73m2 The (test code = GFR) estimated glomerular filtration rate is computed usingpatient ra ce, age (>18), sex, and serum creatinin e. If anyof the ne eded data elements a re missing the Laboratory lily ot compute an estimation of t he glomerular filtration rate . CREATININE (test 0.90 mg/dL 0.55-1.02 N Please note : New code = CREAT) Reference Rang e May 2020 ALBUMIN (test code 2.4 g/dL 3.2-4.8 L Please no te: New = ALB) Reference Range May 2020 CALCIUM (test code 8.0 mg/dL 8.7-10.4 L Please no te: New = CA) Reference Range May 2020 PHOSPHOROUS (test 3.3 mg/dL 2.4-5.1 N Please not e: New code = PHOS) Reference Range May 2020 [id number] 17:32:00 Test Item Value Reference Range Interpretation Comments VANCOMYCIN (test code = VANCO) 14.4 mcg/mL BASIC METABOLIC [id number] 06:17:00 Test Item Value Reference Range Interpretation Comments SODIUM (test code 146 mmol/L 136-145 H Please not e: New = NA) Reference Range May 2020 POTASSIUM (test 3.7 mmol/L 3.5-5.1 N code = K) CHLORIDE (test 119 mmol/L 98-107 H Please note: New code = CL) Reference Range May 2020 CARBON DIOXIDE 22 mmol/L 20-31 N Please note: New (test code = CO2) Reference Range May 2020 GLUCOSE (test code 74 mg/dL 74-106 N Please no te: New = GLU) Reference Range May 2020 BLOOD UREA 5 mg/dL 9-23 L Please note: Ne w NITROGEN (test Reference Ran ge Feb code = BUN) 2020 GLOMERULAR >=60 max >60 Units are FILTRATION RATE estimate mL/min mL/min/1. 73m2 The (test code = GFR) estimated glomerular filtration rate is computed usingpatient ra ce, age (>18), sex, and serum creatinin e. If anyof the neede d data elements a re missing the Laboratory lily ot compute an estimation of t he glomerular filtration rate . CREATININE (test 0.80 mg/dL 0.55-1.02 N Please note : New code = CREAT) Reference Rang e May 2020 CALCIUM (test code 8.0 mg/dL 8.7-10.4 L Please no te: New = CA) Reference Range May 2020 CBC W/AUTO [id number] 05:59:00 Test Item Value Reference Range Interpretation Comments WHITE BLOOD CELL (test code = 7.5 x10 3/uL 4.8-10.8 N WBC) RED BLOOD CELL (test code = 2.75 x10 6/uL 4.20-5.40 L RBC) HEMOGLOBIN (test code = HGB) 10.4 g/dL 12.0-16.0 L HEMATOCRIT (test code = HCT) 32.9 % 37.0-47.0 L MEAN CELL VOLUME (test code = 119.6 fL 81.0-99.0 H MCV) MEAN CELL HGB (test code = MCH) 37.8 pg 27-31 H MEAN CELL HGB CONCENTRATION 31.6 G/DL 33-36.5 L (test code = MCHC) RED CELL DISTRIBUTION WIDTH 13.9 % 12.9-16.9 N (test code = RDW) PLATELET COUNT (test code = 196 x10 3/uL 150-440 N PLT) MEAN PLATELET VOLUME (test code 10.3 fL 8.9-12.4 N = MPV) NEUTROPHIL % (test code = NT%) 57.4 % 42.2-75.2 N LYMPHOCYTE % (test code = LY%) 26.7 % 20.5-51.1 N MONOCYTE % (test code = MO%) 6.3 % 1.7-9.3 N EOSINOPHIL % (test code = EO%) 8.8 % 0.0-7.0 H BASOPHIL % (test code = BA%) 0.5 % 0-2.5 N NEUTROPHIL # (test code = NT#) 4.28 x10 3/uL 1.80-7.70 N LYMPHOCYTE # (test code = LY#) 1.99 x10 3/uL 1.00-4.80 N MONOCYTE # (test code = MO#) 0.47 x10 3/uL 0.00-0.80 N EOSINOPHIL # (test code = EO#) 0.66 x10 3/uL 0.00-0.45 H BASOPHIL # (test code = BA#) 0.04 x10 3/uL 0.0-0.20 N VANCOMYCIN [id number] 16:32:00 Test Item Value Reference Range Interpretation Comments VANCOMYCIN TROUGH (test code = 30.8 mcg/dL 10.0-20.0 H VANCT) VITAMIN [id number] 06:00:00 Test Item Value Reference Range Interpretation Comments VITAMIN B12 (test 189 pg/mL 211-911 L Please not e: New code = VITB12) Reference Ran ge May 2020 FOLIC [id number] 06:00:00 Test Item Value Reference Range Interpretation Comments FOLIC ACID (test 3.37 ng/mL > 5.38 L Please note : New code = FOL) Reference Range May 2020 B-TYPE NATRIURETIC [id number] 05:57:00 Test Item Value Reference Range Interpretation Comments B-TYPE NATRIURETIC PEPTIDE (test 172 pg/mL <100 H code = BNP) BASIC METABOLIC [id number] 05:57:00 Test Item Value Reference Range Interpretation Comments SODIUM (test code 146 mmol/L 136-145 H Please not e: New = NA) Reference Range May 2020 POTASSIUM (test 3.6 mmol/L 3.5-5.1 N code = K) CHLORIDE (test 119 mmol/L 98-107 H Please note: New code = CL) Reference Range May 2020 CARBON DIOXIDE 21 mmol/L 20-31 N Please note: New (test code = CO2) Reference Range May 2020 GLUCOSE (test code 76 mg/dL 74-106 N Please no te: New = GLU) Reference Range May 2020 BLOOD UREA 7 mg/dL 9-23 L Please note: Ne w NITROGEN (test Reference Ran ge Feb code = BUN) 2020 GLOMERULAR >=60 max >60 Units are FILTRATION RATE estimate mL/min mL/min/1. 73m2 The (test code = GFR) estimated glomerular filtration rate is computed usingpatient ra ce, age (>18), sex, and serum creatinin e. If anyof the neede d data elements a re missing the Laboratory lily ot compute an estimation of t he glomerular filtration rate . CREATININE (test 0.80 mg/dL 0.55-1.02 N Please note : New code = CREAT) Reference Rang e May 2020 CALCIUM (test code 8.0 mg/dL 8.7-10.4 L Please no te: New = CA) Reference Range May 2020 CBC W/AUTO [id number] 05:49:00 Test Item Value Reference Range Interpretation Comments WHITE BLOOD CELL (test code = 7.3 x10 3/uL 4.8-10.8 N WBC) RED BLOOD CELL (test code = 2.59 x10 6/uL 4.20-5.40 L RBC) HEMOGLOBIN (test code = HGB) 10.1 g/dL 12.0-16.0 L HEMATOCRIT (test code = HCT) 31.0 % 37.0-47.0 L MEAN CELL VOLUME (test code = 119.7 fL 81.0-99.0 H MCV) MEAN CELL HGB (test code = MCH) 39.0 pg 27-31 H MEAN CELL HGB CONCENTRATION 32.6 G/DL 33-36.5 L (test code = MCHC) RED CELL DISTRIBUTION WIDTH 13.9 % 12.9-16.9 N (test code = RDW) PLATELET COUNT (test code = 176 x10 3/uL 150-440 N PLT) MEAN PLATELET VOLUME (test code 10.6 fL 8.9-12.4 N = MPV) NEUTROPHIL % (test code = NT%) 58.2 % 42.2-75.2 N LYMPHOCYTE % (test code = LY%) 26.1 % 20.5-51.1 N MONOCYTE % (test code = MO%) 6.4 % 1.7-9.3 N EOSINOPHIL % (test code = EO%) 8.6 % 0.0-7.0 H BASOPHIL % (test code = BA%) 0.4 % 0-2.5 N NEUTROPHIL # (test code = NT#) 4.25 x10 3/uL 1.80-7.70 N LYMPHOCYTE # (test code = LY#) 1.91 x10 3/uL 1.00-4.80 N MONOCYTE # (test code = MO#) 0.47 x10 3/uL 0.00-0.80 N EOSINOPHIL # (test code = EO#) 0.63 x10 3/uL 0.00-0.45 H BASOPHIL # (test code = BA#) 0.03 x10 3/uL 0.0-0.20 N LIPID PROFILE (CORONARY RISK)2021-05-15 03:07:00 Test Item Value Reference Range Interpretation Comments TRIGLYCERIDES (test 105 mg/dL <150 N Please n ote: New code = TRIG) Reference Range May 2020 CHOLESTEROL (test code 87 mg/dL <200 N Pleas e note: New = CHOL) Reference Range May 2020 HDL CHOLESTEROL (test 21 mg/dL <60 N Please note: New code = HDL) Reference Range May 2020 LIPOPROTEIN LDL (test 58 mg/dL <100 N INTERP RETATIVE code = LDLC) DATA:LDL Choles terol: Reference RangesOptimal: <100 mg/dLNear Optim al: 100 -129 mg/dLBorde rline High: 130 - 15 9 mg/dLHigh: 160 - 189 mg/dLVery High: = or > 190 mg/dL CORONARY RISK FACTOR 4.14 (test code = RISK) CHOL/HDL RISK MALE: 1/2 AVG 3.43 FEMALE: 1/2 AV G 3.27 AVG 4.97 AVG 4.44 2X AVG 9.55 2X AVG 7.05 3X AVG 23.39 3X AVG 11.04~~~~~~~~~~ ~~~~~~~ ~~~~~~~~~~~~~~~ ~~~~~~~ ~~~~~~~~~~~~~~~ ~~~~~~N Stafford [facility] segundo Education (NCEP ) Guidelines:~~~~ ~~~~~~~ ~~~~~~~~~~~~~~~ ~~~~~~~ ~~~~~~~~~~~~~~~ ~~~~~~~ ~~~~~ HDL Cholesterol<4 0mg/dL: HDL Cholesterol (Major risk factor for CHD)>60mg/dL: H DL Cholesterol (Ne gative risk factor for CHD)40-59mg/dL: Borderline Risk L DL Cholesterol<1 00mg/dL : Desirable LDL -C [id number] 0-159mg /dL: Borderline High Risk LDL-C [id number] 0-189mg /dL: High risk LDL-C concentration H DL-LDL Cholesterol is affected by a n umber of factors such as smoking, age an d sex.~~~~~~~~~~~ ~~~~~~~ ~~~~~~~~~~~~~~~ ~~~~~~~ ~~~~~~~~~~~~~~~ ~~~~~ [id number] 03:07:00 Test Item Value Reference Range Interpretation Comments PHOSPHOROUS (test code 4.2 mg/dL 2.4-5.1 N Pleas e note: New = PHOS) Reference Range May 2020 [id number] 03:07:00 Test Item Value Reference Range Interpretation Comments MAGNESIUM (test code = 1.9 mg/dL 1.6-2.6 N Pleas e note: New MAG) Reference Range May 2020 BASIC METABOLIC [id number] 03:04:00 Test Item Value Reference Range Interpretation Comments SODIUM (test code 143 mmol/L 136-145 N Please not e: New = NA) Reference Range May 2020 POTASSIUM (test 3.5 mmol/L 3.5-5.1 N code = K) CHLORIDE (test 116 mmol/L 98-107 H Please note: New code = CL) Reference Range May 2020 CARBON DIOXIDE 21 mmol/L 20-31 N Please note: New (test code = CO2) Reference Range May 2020 GLUCOSE (test code 89 mg/dL 74-106 N Please no te: New = GLU) Reference Range May 2020 BLOOD UREA 8 mg/dL 9-23 L Please note: Ne w NITROGEN (test Reference Ran ge b code = BUN) 2020 GLOMERULAR >=60 max >60 Units are FILTRATION RATE estimate mL/min mL/min/1. 73m2 The (test code = GFR) estimated glomerular filtration rate is computed usingpatient ra ce, age (>18), sex, and serum creatinin e. If anyof the neede d data elements a re missing the Laboratory lily ot compute an estimation of t he glomerular filtration rate . CREATININE (test 0.90 mg/dL 0.55-1.02 N Please note : New code = CREAT) Reference Rang e May 2020 CALCIUM (test code 7.8 mg/dL 8.7-10.4 L Please no te: New = CA) Reference Range May 2020 CBC W/AUTO [id number] 03:04:00 Test Item Value Reference Range Interpretation Comments WHITE BLOOD CELL (test code = 8.9 x10 3/uL 4.8-10.8 N WBC) RED BLOOD CELL (test code = 2.55 x10 6/uL 4.20-5.40 L RBC) HEMOGLOBIN (test code = HGB) 9.7 g/dL 12.0-16.0 L HEMATOCRIT (test code = HCT) 30.2 % 37.0-47.0 L MEAN CELL VOLUME (test code = 118.4 fL 81.0-99.0 H MCV) MEAN CELL HGB (test code = MCH) 38.0 pg 27-31 H MEAN CELL HGB CONCENTRATION 32.1 G/DL 33-36.5 L (test code = MCHC) RED CELL DISTRIBUTION WIDTH 13.7 % 12.9-16.9 N (test code = RDW) PLATELET COUNT (test code = 180 x10 3/uL 150-440 N PLT) MEAN PLATELET VOLUME (test code 10.6 fL 8.9-12.4 N = MPV) NEUTROPHIL % (test code = NT%) 53.1 % 42.2-75.2 N LYMPHOCYTE % (test code = LY%) 34.0 % 20.5-51.1 N MONOCYTE % (test code = MO%) 5.9 % 1.7-9.3 N EOSINOPHIL % (test code = EO%) 6.4 % 0.0-7.0 N BASOPHIL % (test code = BA%) 0.3 % 0-2.5 N NEUTROPHIL # (test code = NT#) 4.73 x10 3/uL 1.80-7.70 N LYMPHOCYTE # (test code = LY#) 3.03 x10 3/uL 1.00-4.80 N MONOCYTE # (test code = MO#) 0.53 x10 3/uL 0.00-0.80 N EOSINOPHIL # (test code = EO#) 0.57 x10 3/uL 0.00-0.45 H BASOPHIL # (test code = BA#) 0.03 x10 3/uL 0.0-0.20 N - CTA ABD AORTA IF LWEX [id number] 22:44:00 [facility] : 1960 Sex: FPatient Name: TYRESE PUCKETT Unit No: [id number] EXAMS: CPT CODE: [id number] [place] [address] EXAMINATION: - CTA ABD AORTA IF LWEX RO COMPARISON: None HISTORY: Leg ischemia LOCATION CODE: C3 TECHNIQUE: CTA of the abdomen, pelvis and both lower extremities with intravenous contrast. Axial contrast enhanced images of the abdomen, pelvis and both legs were obtained and reviewed in soft tissue, bone and lung windows. Coronal and sagittal reconstructed images were also providedfor review. 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 There is no evidence of aneurysm. Mild plaquing is seen at the origin of the celiac axis without significant stenosis and the common hepatic artery and splenic artery are widely patent. The superior mesenteric artery and its visualized branch vessels are widely patent as is a single right renal artery and dual left renal arteries. Inferior mesenteric artery is widely patent. There is pronounced plaquing in the distal abdominal aorta at the level of the iliac bifurcation. 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 Pronounced narrowing of the proximal left common iliac artery is noted with only a threadlike lumen present proximally. The right common iliac artery ismarkedly narrowed in caliber throughout. It has a normal bifurcation and the internal and external iliac arteries on the right are normal in course and caliber. Irregular plaquing extends into the mid left common iliac artery with approximately 50% narrowing. The left external and internal iliac arteries show plaquing but are widely patent. Both common femoral arteries, both superficial femoral arteries and both popliteal arteries are widely patent . Both popliteal arteries have a normal trifurcation and three-vessel runoff is seen to both ankles. NONVASCULAR FINDINGS: Name: TYRESE PUCKETT [facility] Phys: Cathy Buenrostro [employer] [address] : 1960 Age: 61 Sex: [place] [address] Loc: P.[id number] 1 Exam Date: 05/14/2021 Status: ADM IN PH: FAX: PAGE 1 Signed Report (CONTINUED) Patient Name: TYRESE PUCKETT Unit No: [id number] EXAMS: CPT CODE: [id number] [place] [address] <Continued> Soft tissue swelling is seen around the left great toe and there are areas of cortical irregularity in the phalanges of the left great toe which may reflectunderlying osteomyelitis. Areas of mild scarring and air trapping are seen in both lower lungs. A 1.7 cm simple cyst is present in the posterior right lobe of the liver. Liver is otherwise normal. Gallbladder and biliary tree, spleen, pancreas, right adrenal gland and kidneys are unremarkable. A 1.9 cm indeterminate left adrenal nodule is present, statistically most likely an adenoma. Further evaluation with nonemergent adrenal mass protocol CT or MRI can be obtained if indicated. No suspicious bowel lesions are identified. Urinary bladder appears normal. Uterus is absent. Left ovary is visualized and appears normal. Right ovary is not seen. No free air or free fluid is seen in the abdomen or pelvis. A few scattered left inguinal lymph nodes are present measuring up to 9 mm in short axis and are likely reactive in nature. Degenerative changes are present in the spine and osteoarthritic changes are seen in the hips and sacroiliac joints. Anterolisthesis of L5 on S1 is noted. 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 The remaining visualized vascular structures are widely patent and three-vessel runoff is seen to both ankles. Suspected osteomyelitis in the right 1st toe Indeterminate left adrenal nodule, statistically most likely an adenoma. Further evaluation with liver mass protocol CT or MRI can be obtained Other findings as above at 2244 Reported and signed by: RAMONA HART M.D. CC: July Mcgregor MD; Cathy Christensen Technologist: BRICE ACUNA(R),(CT) CTDI: 20.72 DLP: 2344 Trscr Dt/Tm: 05/14/2021 (0042) by:[email or web address] Printed Date/Time: 05/14/2021 (5688) Name: TYRESE PUCKETT [facility] Phys: Cathy Buenrostro [address] : 1960 Age: 61 Sex: [place] [address] Loc: P.0635 1 Exam Date: 05/14/2021 Status: ADM IN PH: FAX: PAGE 2 Signed Report- XR FOOT 3 + V [id number] 22:15:00 [facility] ITALO [facility] : 1960 Sex: FPatient Name: TYRESE PUCKETT Unit No: [id number] EXAMS: CPT CODE: [id number] XR FOOT 3 + V LT [id number] EXAMINATION: - XR FOOT 3 + V LT HISTORY: Gangrene, left 1st toe COMPARISON: None. LOCATION CODE: C3 FINDINGS: 3 views of the left foot are submitted for evaluation. The bones are diffusely osteopenic. Matter may be there is soft tissue swelling and irregularity involving the 1st toe, with some loss of the cortical definition along the lateral aspect of the tuft of the distal phalanx, findings which may reflect underlying osteomyelitis. No other areas suspicious for osteomyelitis are identified. There is no evidence of fracture. Articular spaces are relatively well-maintained IMPRESSION: Soft tissue irregularity involving the greattoe with a questionable small area of osteomyelitis along the lateral aspect of the tuft of the distal phalanx at 2215 Reported and signed by: RAMONA HART M.D. CC: Maxine Mcgregor MD; Madhav Mcgregor MD Technologist: Adrianna yRan Time: DAP (Gy m2): Air Kerma (mGy): Trscr Dt/Tm: 05/14/2021 (2215) by:[email or web address] Printed Date/Time: 05/14/2021 (2217) Name: TYRESE PUCKETT [facility] Phys: Madhav Cardona MD [address] : 1960 Age: 61 Sex: [place] [address] Loc: P.0635 1 Exam Date: 05/14/2021 Status: ADM IN PH: FAX: PAGE 1 Signed ReportCOMPREHENSIVE METABOLIC [id number] 19:08:00 Test Item Value Reference Range Interpretation Comments SODIUM (test code = 146 mmol/L 136-145 H Please n ote: New NA) Reference Range May 2020 POTASSIUM (test code 3.7 mmol/L 3.5-5.1 N = K) CHLORIDE (test code = 114 mmol/L 98-107 H Please note: New CL) Reference Range May 2020 CARBON DIOXIDE (test 22 mmol/L 20-31 N Please note: New code = CO2) Reference Range May 2020 GLUCOSE (test code = 101 mg/dL 74-106 N Please note: New GLU) Reference Range May 2020 BLOOD UREA NITROGEN 9 mg/dL 9-23 N Please n ote: New (test code = BUN) Reference Range May 2020 GLOMERULAR FILTRATION 60 mL/min >60 Units are RATE (test code = mL/min/1.7 3m2 The GFR) estimated glome rular filtration rate is computed usingp atient race, age (>18) , sex, and serum creat inine. If anyof the ne eded data elements a re missing the Lab oratory cannot compute an estimation of t he glomerular filt ration rate. CREATININE (test code 1.00 mg/dL 0.55-1.02 N Please note: New = CREAT) Reference Range May 2020 TOTAL PROTEIN (test 5.9 g/dL 5.7-8.2 N Please n ote: New code = PROT) Reference Range May 2020 ALBUMIN (test code = 2.7 g/dL 3.2-4.8 L Please note: New ALB) Reference Range May 2020 CALCIUM (test code = 8.2 mg/dL 8.7-10.4 L Please note: New CA) Reference Range May 2020 BILIRUBIN TOTAL (test 0.3 mg/dL 0.3-1.2 N Please note: New code = BILT) Reference Range May 2020 SGOT/AST (test code = 17 U/L <34 N Please note: New AST) Reference Range May 2020 SGPT/ALT (test code = 13 U/L 10-49 N Please note: New ALT) Reference Range May 2020 ALKALINE PHOSPHATASE 162 U/L 46-116 H Please note: New (test code = ALKP) Reference Range May 2020 HGBA1C - GLYCOSYLATED [id number] 18:04:00 Test Item Value Reference Range Interpretation Comments GLYCOSYLATED HEMOGLOBIN 4.7 % <5.7 N Diab etic >/= (HA1C) (test code = 6.5%Pred iabetes GLYHGB) 5.7-6.4%Normal < 5.7% CBC W/MANUAL [id number] 17:56:00 Test Item Value Reference Range Interpretation Comments WHITE BLOOD CELL (test code = 10.2 x10 3/uL 4.8-10.8 N WBC) RED BLOOD CELL (test code = 2.95 x10 6/uL 4.20-5.40 L RBC) HEMOGLOBIN (test code = HGB) 11.3 g/dL 12.0-16.0 L HEMATOCRIT (test code = HCT) 35.0 % 37.0-47.0 L MEAN CELL VOLUME (test code = 118.6 fL 81.0-99.0 H MCV) MEAN CELL HGB (test code = MCH) 38.3 pg 27-31 H MEAN CELL HGB CONCENTRATION 32.3 G/DL 33-36.5 L (test code = MCHC) RED CELL DISTRIBUTION WIDTH 13.5 % 12.9-16.9 N (test code = RDW) PLATELET COUNT (test code = 160 x10 3/uL 150-440 N PLT) MEAN PLATELET VOLUME (test code 11.0 fL 8.9-12.4 N = MPV) TOTAL CELLS COUNTED (test code 100 #CELLS = TCC) SEGMENTED NEUTROPHILS (test 69 % 49-71 N code = SEG) LYMPHOCYTE (test code = LYMPH) 21 % 20-40 N ATYPICAL LYMPH (test code = 1 % 0-1 N ALYMPH) MONOCYTE (test code = MON) 7 % 3-8 N EOSINOPHIL (test code = EOS) 1 % 1-5 N BASOPHIL (test code = BASO) 1 % 0.2-1.0 N PROTHROMBIN [id number] 17:37:00 Test Item Value Reference Range Interpretation Comments PROTHROMBIN TIME 12.0 SECONDS 10.3-12.9 N PATIENT (test code = PTP) INTERNATIONAL 1.05 INR UNIT 0.9-1.11 N The INR is us eful only NORMAL RATIO (test for monit oring code = INR) anticoagulant therapy.It may be unreliable in t he initial phase o f antigoagulation and in unstable patien ts. Indication for Anticoagulation Recommend ed INR 1. Prevention o f venous thomboembolism 2.0-3.0in high -risk patients; treat ment of venousthrombosi s and pulmonary embol ism aftera course o f heparin; preven tion of systemicembolis m in a variety of cond itions, including atria l fibrillation an d prothetic tissu e heart valves, 2. Pros thetic mechanical hear t valves; 2.5-3.5recurren t systemic emboli sm. THROMBOPLASTIN TIME [id number] 17:37:00 Test Item Value Reference Range Interpretation Comments THROMBOPLASTIN TIME 29.9 SECONDS 23.8-34.8 N INTERPRE TATIVE PARTIAL (test code = DATA:Th erapeutic PTT) range: Unfractionated heparin:55 - 80 seconds Argatroban:1.5 to 3 times the basel ine PTT XR FOOT LEFT COMPLETE 3 VIEWS *OW*2021-03-09 01:45:03 [facility] : 1960 Sex: FEXAMINATION:XR FOOT LEFT COMPLETE 3 VIEWS *OW*CLINICAL INDICATION:Female, 61 years old with Pain in left footCOMPARISON: NoneFINDINGS:Three view(s) of the foot obtained.Joint spaces: Anatomic.Bones: Noacute fracture.Soft tissues: Moderate swelling at the dorsum of the left forefoot.IMPRESSION: No acute fracture.Moderate swelling of the dorsum of the left forefoot.Electronically signed by: Tony Magaña MD 03/09/2021 1:45 AM [facility] KNEE RIGHT 3 VIEWS *OW* 2019-04-03 14:30:59Right knee, 3 viewsLocation Code: [id number] HISTORY: Disorder of kneeComparison: 06/05/18COMMENTS: AP, lateral, and oblique views of the right knee demonstrate no acutefracture or malalignment. There is mild joint space narrowing with subchondralsclerosis and osteophyte formation. The soft tissues are unremarkable.IMPRESSION: Mild osteoarthritis with otherwise no acute radiographicabnormality.XR ANKLE RIGHT 2 VIEW *OW*2019-04-03 14:29:56Right ankle, 2 viewsLocation Code: [id number] HISTORY: Ankle painCOMPARISON: None. COMMENTS: AP and lateral views of the right ankle demonstrate no acute fractureor malalignment. The soft tissues are unremarkable.IMPRESSION: No acute radiographic abnormality.XR RIBS LEFT UNIL 3 VWS W/PA CXR *OW*2019-03-27 16:48:13Left rib series, 5 viewsLocation Code: D4 CLINICAL HISTORY: Unspecified fallCOMMENT: Frontal view ofthe chest shows the lungs to be clear with nopneumothorax, consolidation, or effusion. The cardiomediastinal silhouette isunremarkable. AP and oblique views of the left ribs demonstrate no displaced fracture. Thesoft tissues are unremarkable.IMPRESSION: No acute abnormality. DRUGS OF ABUSE*OW*2019-02-02 22:32:00 Test Item Value Reference Range Interpretation Comments DRUG SCRN (test code URINE DRUG SCREEN = HDOA) This is an unconfirmed screening result and should not be used for non-medical purposes PHENCYCLID (test Negative NEGATIVE code = GPCP) BENZODIAZE (test Negative NEGATIVE code = GBZO) COCAINE (test code = Negative NEGATIVE GCOC) AMPHETAMIN (test Negative NEGATIVE code = GAMP) THC (test code = Negative NEGATIVE GTHC) OPIATES (test code = Negative NEGATIVE BOB) BARBITURAT (test Negative NEGATIVE code = GBAR) TCA (test code = Negative NEGATIVE GTCA) DOAH (test code = URINE DRUG DOAH) SCREEN CUT OFF VALUES Amphetamines 1000 ng/mL Barbituates 300 ng/mL Benzodiazepines 300 ng/mL Cocaine 300 ng/mL Opiates 300 ng/mL Phencyclidine 25 ng/mL THC 50 ng/mL Tricyclic Antidepressants 1000 ng/mL URINALYSIS W/O MICROSCOPICOW2019-02-02 22:22:00 Test Item Value Reference Range Interpretation Comments COLOR (test code = Yellow YELLOW COLU) CLARITY (test code = Clear CLEAR CLA) GLUCOSE UR (test Negative NEGATIVE code = UA GLUCOSE) BILI UR (test code = Negative NEGATIVE BILE) KETONES UR (test Negative NEGATIVE code = KIP) SP GRAVITY (test 1.015 1.005-1.030 code = SPGR) PH UR (test code = 7.0 4.5-8.0 PH) PROTEIN UR (test Negative NEGATIVE code = PU) NITRITE UR (test Positive NEGATIVE code = NITRITE) UROBIL UR (test code 0.2 E.U./dL = GUROQ) UROBIL UR (test code UROBILINOGEN = GUROQC) REFERENCE RANGE 0.2 - 1.0 EU/dL BLOOD UR (test code 2+ NEGATIVE A = UA BLOOD) LEUK ES UR (test 1+ NEGATIVE A code = LEUK) D-DIMER TRIAGE OW2019-02-02 22:10:00 Test Item Value Reference Range Interpretation Comments D-DIMER (test code = 226 ng/mL D-DU <=599 GDDI) D-DIMER COMMENT (test *Level to rule out code = DDCOM) DVT or PE: <235 ng/mL D-DU* BRAIN NATRIURETIC PROTEIN OW2019-02-02 22:09:00 Test Item Value Reference Range Interpretation Comments BNP (test code = OBNP) 16 pg/mL <=100 TROPONIN I OW2019-02-02 22:07:00 Test Item Value Reference Range Interpretation Comments TROPONIN I (test code = A84) 0.010 ng/mL 0.000-0.045 MetyLyte 8 Panel *OW* [id number] 22:06:00 Test Item Value Reference Range Interpretation Comments GLUCOSE (test code = GGUL) 106 mg/dL 73-118 BUN (test code = GBUN) 9 mg/dL 7-22 CREATININE (test code = GCRE) 1.2 mg/dL 0.6-1.2 CK TOTAL (test code = GCK) 41 U/L 30-190 SODIUM (test code = GNA+) 139 mmol/L 128-145 POTASSIUM (test code = GK+) 4.0 mmol/L 3.6-5.1 CHLORIDE (test code = GCL-) 106 mmol/L 98-108 TCO2 (test code = GTC02) 24 mmol/L 18-33 PROTHROMBIN TIME i-STAT OW2019-02-02 21:55:00 Test Item Value Reference Range Interpretation Comments PT (test code = 13.5 s 10.0-13.0 H PT1) INR (test code = 1.1 INR) INRH (test code = SUGGESTED INRH) THERAPEUTIC RANGE FOR INR: 2.5 - 3.5 For Patients with Prosthetic Valves or Patients with recurrent Thromboembolic Events 2.0 - 3.0 For Most Other Applications CHEM8+ i-STAT OW2019-02-02 21:52:00 Test Item Value Reference Range Interpretation Comments SODIUM (test code = HARLEY) 141 mmol/L 138-146 POTASSIUM (test code = KI) 4.3 mmol/L 3.5-4.9 CHLORIDE (test code = CLI) 106 mmol/L 98-109 CA IONIZED (test code = ICAI) 1.22 mmol/L 1.12-1.32 GLUCOSE (test code = GLUI) 104 mg/dL 75-100 H TCO2 (test code = TCO2) 24 mmol/L 24-29 BUN (test code = BUN1) 8 mg/dL 8-26 CREATININE (test code = CREAI) 1.1 mg/dL 0.6-1.3 ANION GAP (test code = GANG) 16.0 mmol/L HGB (test code = MHB) 14.3 g/dL 12.0-17.0 HCT (test code = MHCT) 42.0 % 38.0-51.0 CBC (INCLUDES AUTOMATED DIFFERENTIAL) *2019-02-02 21:51:00 Test Item Value Reference Range Interpretation Comments WBC (test code = WBC) 11.0 10\S\3/uL 4.5-11.0 RBC (test code = RBC) 3.83 10\S\6/uL 4.20-5.60 L HGB (test code = HBG) 13.8 g/dL 12.0-15.5 HCT (test code = HCT) 42.6 % 35.0-44.0 MCV (test code = MCV) 111.1 fL 81.0-99.0 H MCH (test code = MCH) 36.0 pg 27.0-31.0 H MCHC (test code = MCHC) 32.4 g/dL 32.0-36.0 RDW (test code = RDW) 12.8 % 11.5-14.5 PLT (test code = PLT) 237 10\S\3/uL 130-400 MPV (test code = OMPV) 8.0 fL 6.2-10.2 NEUTROP # (test code = NE#) 7.8 10\S\3/uL 1.6-8.0 LYMPH # (test code = LY#) 2.5 10\S\3/uL 1.1-3.5 MID # (test code = GMID#) 0.7 10\S\3/uL 0.0-1.1 GRA % (test code = GRA%) 71.3 % 35.0-73.0 LYMPH % (test code = GLY%) 22.7 % 20.0-55.0 MID % (test code = GMID%) 6.0 % 0.0-10.0 CT ABDOMEN AND PELVIS W/O CONTRAST *OW*2018-12-31 00:19:36LOCATION: [id number]: 58-year-old female with periumbilical abdominal pain.COMMENT: Axial CT imagi ng of this patient's abdomen and pelvis was obtained without IVcontrast. Coronal and sagittal soft tissue reconstructions were included. An older examination obtained 07/20/18 is available for comparison.One or more of the following dose reduction techniques are used: Automatedexposure control, adjustment of the mA and/or kV according the patient size,and/or utilization of iterative reconstruction technique.DLP: 441.47 mGy-cmCONTRAST: NoneFINDINGS:The lung bases are clear. The cardiac silhouette is unremarkable.The liver, spleen, pancreas, adrenal glands, kidneys, and gallbladder exhibitno acute findings. Again seen is a small cyst in the right hepatic lobe.The upper intestinal tract and the small intestine are unremarkable. Anormal-appearing appendix is seen. The colon is unremarkable.No ascitesor adenopathy is present.In the pelvis the urinary bladder is unremarkable. The uterus is not seen ineither ovary is seen.The vascular anatomy is unremarkable.The musculoskeletal anatomy is unremarkable .IMPRESSION:Unremarkable noncontrast CT examination of the abdomen and pelvis. URINALYSIS W/O MICROSCOPICOW2018-12-30 23:59:00 Test Item Value Reference Range Interpretation Comments COLOR (test code = PALE YELLOW YELLOW A COLU) CLARITY (test code = Turbid CLEAR CLA) GLUCOSE UR (test Negative NEGATIVE code = UA GLUCOSE) BILI UR (test code = Negative NEGATIVE BILE) KETONES UR (test Negative NEGATIVE code = KIP) SP GRAVITY (test 1.025 1.005-1.030 code = SPGR) PH UR (test code = 6.5 4.5-8.0 PH) PROTEIN UR (test Negative NEGATIVE code = PU) NITRITE UR (test Negative NEGATIVE code = NITRITE) UROBIL UR (test code 0.2 E.U./dL = GUROQ) UROBIL UR (test code UROBILINOGEN = GUROQC) REFERENCE RANGE 0.2 - 1.0 EU/dL BLOOD UR (test code 3+ NEGATIVE A = UA BLOOD) LEUK ES UR (test 1+ NEGATIVE A code = LEUK) CHEM8+ i-STAT OW2018-12-30 23:42:00 Test Item Value Reference Range Interpretation Comments SODIUM (test code = HARLEY) 141 mmol/L 138-146 POTASSIUM (test code = KI) 4.2 mmol/L 3.5-4.9 CHLORIDE (test code = CLI) 108 mmol/L 98-109 CA IONIZED (test code = ICAI) 1.17 mmol/L 1.12-1.32 GLUCOSE (test code = GLUI) 110 mg/dL 75-100 H TCO2 (test code = TCO2) 23 mmol/L 24-29 L BUN (test code = BUN1) 6 mg/dL 8-26 L CREATININE (test code = CREAI) 0.9 mg/dL 0.6-1.3 ANION GAP (test code = GANG) 15.0 mmol/L HGB (test code = MHB) 13.9 g/dL 12.0-17.0 HCT (test code = MHCT) 41.0 % 38.0-51.0 TROPONIN I i-STAT OW2018-12-30 23:36:00 Test Item Value Reference Range Interpretation Comments TROPONIN I (test code = A84) 0.000 ng/mL 0.000-0.045 CBC (INCLUDES AUTOMATED DIFFERENTIAL) *2018-12-30 23:25:00 Test Item Value Reference Range Interpretation Comments WBC (test code = WBC) 13.1 10\S\3/uL 4.5-11.0 H RBC (test code = RBC) 4.02 10\S\6/uL 4.20-5.60 L HGB (test code = HBG) 14.0 g/dL 12.0-15.5 HCT (test code = HCT) 44.0 % 35.0-44.0 MCV (test code = MCV) 109.4 fL 81.0-99.0 H MCH (test code = MCH) 34.8 pg 27.0-31.0 H MCHC (test code = MCHC) 31.8 g/dL 32.0-36.0 L RDW (test code = RDW) 12.9 % 11.5-14.5 PLT (test code = PLT) 273 10\S\3/uL 130-400 MPV (test code = OMPV) 7.9 fL 6.2-10.2 NEUTROP # (test code = NE#) 9.4 10\S\3/uL 1.6-8.0 H LYMPH # (test code = LY#) 2.9 10\S\3/uL 1.1-3.5 MID # (test code = GMID#) 0.8 10\S\3/uL 0.0-1.1 GRA % (test code = GRA%) 71.8 % 35.0-73.0 LYMPH % (test code = GLY%) 22.1 % 20.0-55.0 MID % (test code = GMID%) 6.1 % 0.0-10.0 URINALYSIS W/O MICROSCOPICOW2018-12-21 15:20:00 Test Item Value Reference Range Interpretation Comments COLOR (test code = Yellow YELLOW COLU) CLARITY (test code = Clear CLEAR CLA) GLUCOSE UR (test Negative NEGATIVE code = UA GLUCOSE) BILI UR (test code = Negative NEGATIVE BILE) KETONES UR (test Negative NEGATIVE code = KIP) SP GRAVITY (test 1.010 1.005-1.030 code = SPGR) PH UR (test code = 7.0 4.5-8.0 PH) PROTEIN UR (test Negative NEGATIVE code = PU) NITRITE UR (test Negative NEGATIVE code = NITRITE) UROBIL UR (test code 0.2 E.U./dL = GUROQ) UROBIL UR (test code UROBILINOGEN = GUROQC) REFERENCE RANGE 0.2 - 1.0 EU/dL BLOOD UR (test code 1+ NEGATIVE A = UA BLOOD) LEUK ES UR (test 1+ NEGATIVE A code = LEUK) XR SHOULDER LEFT 3 VIEWS *OW*2018-11-11 01:06:25Xray left shoulder 3 viewsLocation Code: I05Wiqbaayugz: None availableCLINICAL HISTORY: PainFindings: No plain radiographic evidence of an acute fracture or dislocation. Noradiopaque foreign body.IMPRESSION:No plain radiographic evidence of an acute fracture or dislocationTROPONIN I i-STAT OW2018-11-07 17:02:00 Test Item Value Reference Range Interpretation Comments TROPONIN I (test code = A84) 0.000 ng/mL 0.000-0.045 CHEM8+ i-STAT OW2018-11-07 16:32:00 Test Item Value Reference Range Interpretation Comments SODIUM (test code = HARLEY) 141 mmol/L 138-146 POTASSIUM (test code = KI) 4.4 mmol/L 3.5-4.9 CHLORIDE (test code = CLI) 110 mmol/L 98-109 H CA IONIZED (test code = ICAI) 1.08 mmol/L 1.12-1.32 L GLUCOSE (test code = GLUI) 142 mg/dL 75-100 H TCO2 (test code = TCO2) 23 mmol/L 24-29 L BUN (test code = BUN1) 8 mg/dL 8-26 CREATININE (test code = CREAI) 1.0 mg/dL 0.6-1.3 ANION GAP (test code = GANG) 13.0 mmol/L HGB (test code = MHB) 16.3 g/dL 12.0-17.0 HCT (test code = MHCT) 48.0 % 38.0-51.0 CBC (INCLUDES AUTOMATED DIFFERENTIAL) *2018-11-07 16:28:00 Test Item Value Reference Range Interpretation Comments WBC (test code = WBC) 13.8 10\S\3/uL 4.5-11.0 H RBC (test code = RBC) 4.42 10\S\6/uL 4.20-5.60 HGB (test code = HBG) 15.5 g/dL 12.0-15.5 HCT (test code = HCT) 47.9 % 35.0-44.0 H MCV (test code = MCV) 108.3 fL 81.0-99.0 H MCH (test code = MCH) 35.1 pg 27.0-31.0 H MCHC (test code = MCHC) 32.4 g/dL 32.0-36.0 RDW (test code = RDW) 12.8 % 11.5-14.5 PLT (test code = PLT) 281 10\S\3/uL 130-400 MPV (test code = OMPV) 8.0 fL 6.2-10.2 NEUTROP # (test code = NE#) 10.5 10\S\3/uL 1.6-8.0 H LYMPH # (test code = LY#) 2.5 10\S\3/uL 1.1-3.5 MID # (test code = GMID#) 0.8 10\S\3/uL 0.0-1.1 GRA % (test code = GRA%) 76.3 % 35.0-73.0 H LYMPH % (test code = GLY%) 18.0 % 20.0-55.0 L MID % (test code = GMID%) 5.7 % 0.0-10.0 XR ANKLE RIGHT COMPLETE 3 VIEWS *[id number] 21:45:443 views right ankleDictation Location: [id number] HISTORY: Ankle painTechnique:AP, oblique, and lateral views were obtained. Comparison made to prior studyfrom 09/01/18Findings:There is no evidence of fracture or dislocation. The ankle mortise joint iswell maintained. No radiopaque foreign body or subcutaneous air is present.There is no degenerative change. There is no soft tissue swelling evident.There is obesity which decreases sensitivity for detection of soft tissueswelling.IMPRESSION: No acute abnormality demonstrated.XR HUMERUS RIGHT COMPL AP & LAT *OW*2018-10-31 22:41:37Right humerus 2 viewsDictation Location: [id number] HISTORY: painTECHNIQUE:AP and lateral views were obtained. FINDINGS: Bony mineralization is normal without lytic or sclerotic lesions. No evidenceof fracture, dislocation, degenerative changes or periostitis. Regional jointspaces are unremarkable. Soft tissues are unremarkable without calcificationor radiopaque foreign bodies.IMPRESSION:No abnormalities demonstrated.XR ABDOMEN 2 VIEWS W/PA CHEST *OW*2018-10-27 21:10:45 LOCATION: [id number]: 58-year-old female with constipation.COMMENT:Supine and upright radiographs ofthe abdomen were obtained along with afrontal chest radiograph. The abdomen is compared to a prior study lakycljw73/30/19, and the chest is compared to a prior study of 10/08/18.The chest examination again demonstrates cardiac enlargement with findings ofcentral vascular congestion, unchanged from theprior study.Within the abdomen scattered collections of fecal residue seen throughout thecolon, suggestive of mild constipation. No free air or free fluid is seen andorganomegaly or masses seen.The skeleton and soft tissues are unremarkable.IMPRESSION:In the chest again seen are findings of cardiac enlargement with centralvascular congestion.Mild colonic constipation is seen in the abdomen examination.XR KNEE LEFT 3 [id number] 15:50:45Left knee, 3 viewsLocation Code: [id number] HISTORY:[id number]: Pain in left kneeCOMMENTS: AP, lateral, and oblique views of the left knee demonstrate no acutefracture or malalignment. The soft tissues are unremarkable.IMPRESSION: No acute radiographic abnormality.LACTIC ACID OW2018-10-08 13:33:00 Test Item Value Reference Range Interpretation Comments LACTATE (test code = SHEBA) 3.4 mmol/L 0.9-1.7 H BRAIN NATRIURETIC PROTEIN OW2018-10-08 13:19:00 Test Item Value Reference Range Interpretation Comments BNP (test code = OBNP) 118 pg/mL 0-50 H TROPONIN I i-STAT OW2018-10-08 13:17:00 Test Item Value Reference Range Interpretation Comments TROPONIN I (test code = A84) 0.000 ng/mL 0.000-0.045 XR CHEST 1 VIEW PORTABLE *OW*2018-10-08 12:57:33Chest one view AP 10/08/2018 12:57 PMCLINICAL INDICATION: DyspneaCOMPARISON: 07/20/18IMPRESSION:The cardiac silhouette is enlarged, but stable. The central pulmonaryvasculature is not engorged. The lungs are well aerated.DRUGS OF ABUSE*OW*2018-10-08 12:52:00 Test Item Value Reference Range Interpretation Comments DRUG SCRN (test code URINE DRUG SCREEN = HDOA) This is an unconfirmed screening result and should not be used for non-medical purposes PHENCYCLID (test Negative NEGATIVE code = GPCP) BENZODIAZE (test Negative NEGATIVE code = GBZO) COCAINE (test code = Negative NEGATIVE GCOC) AMPHETAMIN (test Negative NEGATIVE code = GAMP) THC (test code = Negative NEGATIVE GTHC) OPIATES (test code = Negative NEGATIVE BOB) BARBITURAT (test Negative NEGATIVE code = GBAR) TCA (test code = Negative NEGATIVE GTCA) DOAH (test code = URINE DRUG DOAH) SCREEN CUT OFF VALUES Amphetamines 1000 ng/mL Barbituates 300 ng/mL Benzodiazepines 300 ng/mL Cocaine 300 ng/mL Opiates 300 ng/mL Phencyclidine 25 ng/mL THC 50 ng/mL Tricyclic Antidepressants 1000 ng/mL CHEM8+ i-STAT OW2018-10-08 12:45:00 Test Item Value Reference Range Interpretation Comments SODIUM (test code = HARLEY) 140 mmol/L 138-146 POTASSIUM (test code = KI) 4.2 mmol/L 3.5-4.9 CHLORIDE (test code = CLI) 108 mmol/L 98-109 CA IONIZED (test code = ICAI) 1.24 mmol/L 1.12-1.32 GLUCOSE (test code = GLUI) 261 mg/dL 75-100 H TCO2 (test code = TCO2) 20 mmol/L 24-29 L BUN (test code = BUN1) 12 mg/dL 8-26 CREATININE (test code = CREAI) 0.9 mg/dL 0.6-1.3 ANION GAP (test code = GANG) 17.0 mmol/L HGB (test code = MHB) 15.6 g/dL 12.0-17.0 HCT (test code = MHCT) 46.0 % 38.0-51.0 URINALYSIS W/O MICROSCOPICOW2018-10-08 12:42:00 Test Item Value Reference Range Interpretation Comments COLOR (test code = Yellow YELLOW COLU) CLARITY (test code = Clear CLEAR CLA) GLUCOSE UR (test Trace NEGATIVE code = UA GLUCOSE) BILI UR (test code = Negative NEGATIVE BILE) KETONES UR (test Negative NEGATIVE code = KIP) SP GRAVITY (test 1.010 1.005-1.030 code = SPGR) PH UR (test code = 7.0 4.5-8.0 PH) PROTEIN UR (test Negative NEGATIVE code = PU) NITRITE UR (test Positive NEGATIVE code = NITRITE) UROBIL UR (test code 0.2 E.U./dL = GUROQ) UROBIL UR (test code UROBILINOGEN = GUROQC) REFERENCE RANGE 0.2 - 1.0 EU/dL BLOOD UR (test code 2+ NEGATIVE A = UA BLOOD) LEUK ES UR (test Trace NEGATIVE code = LEUK) PROTHROMBIN TIME i-STAT OW2018-10-08 12:42:00 Test Item Value Reference Range Interpretation Comments PT (test code = 12.0 s 10.0-13.0 PT1) INR (test code = 1.0 INR) INRH (test code = SUGGESTED INRH) THERAPEUTIC RANGE FOR INR: 2.5 - 3.5 For Patients with Prosthetic Valves or Patients with recurrent Thromboembolic Events 2.0 - 3.0 For Most Other Applications CBC (INCLUDES AUTOMATED DIFFERENTIAL) *2018-10-08 12:41:00 Test Item Value Reference Range Interpretation Comments WBC (test code = WBC) 13.3 10\S\3/uL 4.5-11.0 H RBC (test code = RBC) 4.29 10\S\6/uL 4.20-5.60 HGB (test code = HBG) 15.0 g/dL 12.0-15.5 HCT (test code = HCT) 47.3 % 35.0-44.0 H MCV (test code = MCV) 110.3 fL 81.0-99.0 H MCH (test code = MCH) 35.0 pg 27.0-31.0 H MCHC (test code = MCHC) 31.7 g/dL 32.0-36.0 L RDW (test code = RDW) 13.0 % 11.5-14.5 PLT (test code = PLT) 330 10\S\3/uL 130-400 MPV (test code = OMPV) 8.4 fL 6.2-10.2 NEUTROP # (test code = NE#) 11.4 10\S\3/uL 1.6-8.0 H LYMPH # (test code = LY#) 1.5 10\S\3/uL 1.1-3.5 MID # (test code = GMID#) 0.4 10\S\3/uL 0.0-1.1 GRA % (test code = GRA%) 85.9 % 35.0-73.0 H LYMPH % (test code = GLY%) 11.3 % 20.0-55.0 L MID % (test code = GMID%) 2.8 % 0.0-10.0 XR KNEE LEFT 3 VIEWS *OW*2018-10-07 21:40:26LOCATION: [id number]: 58-year-old female who suffered an unspecified fall.COMMENT: Frontal, oblique, and lateral radiographs of the left knee were obtained.An older examination obtained 09/17/18 is available for comparison.The skeleton is intact, and normally mineralized. The joint spaces are wellmaintained. The soft tissues are unremarkable. IMPRESSION:Unremarkable radiographic examination of the left knee.XR KNEE LEFT 3 VIEWS *OW*2018-09-17 00:43:54LOCATION: [id number]: 58-year-old female who presents with left knee pain after suffering afall.COMME NT: Frontal, oblique, and lateral radiographs of the left knee were obtained.The skeleton is intact, and normally mineralized. The joint spaces are wellmaintained. The soft tissues are unremarkable. IMPRESSION:Unremarkable radiographic examination of the left knee.XR SPINE LUMBAR COMPLETE *OW* 2018-09-17 00:38:17LOCATION: [id number]: 58-year-old female with back pain.COMMENT:Frontal, lateral, L5-S1 spot lateral, and bilateral oblique radiographs of thelumbar spine were examined.The skeleton is intact. There bran 10 mm anterolisthesis at L4-5 level. Chronicbilateral pars defects are suspected. Otherwise the skeleton exhibits no acutefindings. The paraspinous soft tissues are unremarkable.IMPRESSION:A 10 mm anterolisthesis secondary to a chronic-appearing bilateral pars defectsis seen at the L4-5 level in this patient's lumbar spine.XR ANKLE RIGHT COMPLETE 3 VIEWS *[id number] 21:39:143 views right ankleLocation: [id number] HISTORY: Ankle painTechnique:AP, oblique, and lateral views were obtained. Comparison made to 06/05/18Findings:There is no evidence of fracture or dislocation.The ankle mortise joint iswell maintained. No radiopaque foreign body or subcutaneous air is present.There is no degenerative change. There is no soft tissue swelling evident.Sensitivity for detectionof soft tissue swelling is decreased by the obesitypresent.IMPRESSION: No abnormality demonstrated by plain film.XR SHOULDER LEFT 3 VIEWS *OW*2018-09-01 21:34:26Left shoulder 3 viewsLocation: [id number] HISTORY: painTechnique:Transscapular Y Internal and external rotation views were obtained. Findings:Bony mineralization is normal without focal osteolytic orblastic lesions. ACjoint normal. No evidence of degenerative spurring or subchondral sclerosis. Nofracture or dislocation. Soft tissues are normal without soft tissuecalcification or foreign bodies. IMPRESSION:Normal plain films of the left shoulder.XR SHOULDER RIGHT 3VIEWS *OW* 2018-07-26 16:47:59Right shoulder, 3 viewsLocation Code: [id number] HISTORY: Traumatic injuryCOMMENTS: AP views in internal and external rotation along with a transscapularY view of the right shoulder were obtained. There is no acute fracture ormalalignment. The soft tissues are unremarkable.IMPRESSION: No acute abnormality.CT ABDOMEN AND PELVIS W/O CONTRAST *OW*2018-07-20 17:16:50CT abdomen and pelvis without contrastLocation Code: [id number] HISTORY: Lower abdominal painCOMPARISON: 07/18/2018, 07/04/2018Technique: Helical CT of the abdomen and pelvis was performed without contrast.Thin section axial, sagittal and coronal images were obtained. Automaticexposure control was utilized. Total DLP: 1148.32 mGycmFINDINGS:The lung bases are clear. Mild left-sided periureteral strandingremains. There is no visualized calculusor hydronephrosis. The liver, gallbladder, adrenal glands, kidneys, pancreas,and spleen are unremarkable.The unopacified loops of bowel demonstrate no focal thickening or dilatation.The appendix is visualized and is normal. There is no free peritoneal air orfluid. The abdominal aorta is normal in caliber and contour. There is noretroperitoneal mass or fluid collection. The urinary bladder is unremarkable.There is no pelvic mass or fluid collection. The uterus is absent. The bones, skin, and surrounding soft tissues are unremarkable.IMPRESSION: Stable mild left periureteral inflammation suggestive of pyelitis. There is noobstructing calculus or hydronephrosis.XR CHEST 1 VIEW PORTABLE *OW*2018-07-20 17:13:30Portable AP chest, 1 viewLocation Code: [id number] HISTORY: Chest painCOMPARISON: NoneCOMMENT: The lungs are clear and well inflated. The costophrenic angles are sharp. Theheart is mildly enlarged. Thebones are intact.IMPRESSION: Mild cardiomegaly with otherwise no acute abnormality.BRAIN NATRIURETIC PROTEIN OW2018-07-20 17:09:00 Test Item Value Reference Range Interpretation Comments BNP (test code = OBNP) 51 pg/mL 0-50 H TROPONIN I i-STAT OW2018-07-20 16:57:00 Test Item Value Reference Range Interpretation Comments TROPONIN I (test code = A84) 0.010 ng/mL 0.000-0.045 CHEM8+ i-STAT OW2018-07-20 16:47:00 Test Item Value Reference Range Interpretation Comments SODIUM (test code = HARLEY) 139 mmol/L 138-146 POTASSIUM (test code = KI) 4.0 mmol/L 3.5-4.9 CHLORIDE (test code = CLI) 105 mmol/L 98-109 CA IONIZED (test code = ICAI) 1.14 mmol/L 1.12-1.32 GLUCOSE (test code = GLUI) 111 mg/dL 75-100 H TCO2 (test code = TCO2) 23 mmol/L 24-29 L BUN (test code = BUN1) 5 mg/dL 8-26 L CREATININE (test code = CREAI) 1.0 mg/dL 0.6-1.3 ANION GAP (test code = GANG) 16.0 mmol/L HGB (test code = MHB) 13.9 g/dL 12.0-17.0 HCT (test code = MHCT) 41.0 % 38.0-51.0 CBC (INCLUDES AUTOMATED DIFFERENTIAL) *2018-07-20 16:46:00 Test Item Value Reference Range Interpretation Comments WBC (test code = WBC) 10.2 10\S\3/uL 4.5-11.0 RBC (test code = RBC) 3.92 10\S\6/uL 4.20-5.60 L HGB (test code = HBG) 13.1 g/dL 12.0-15.5 HCT (test code = HCT) 41.9 % 35.0-44.0 MCV (test code = MCV) 107.0 fL 81.0-99.0 H MCH (test code = MCH) 33.4 pg 27.0-31.0 H MCHC (test code = MCHC) 31.3 g/dL 32.0-36.0 L RDW (test code = RDW) 12.4 % 11.5-14.5 PLT (test code = PLT) 278 10\S\3/uL 130-400 MPV (test code = OMPV) 7.7 fL 6.2-10.2 NEUTROP # (test code = NE#) 7.1 10\S\3/uL 1.6-8.0 LYMPH # (test code = LY#) 2.4 10\S\3/uL 1.1-3.5 MID # (test code = GMID#) 0.6 10\S\3/uL 0.0-1.1 GRA % (test code = GRA%) 70.0 % 35.0-73.0 LYMPH % (test code = GLY%) 23.7 % 20.0-55.0 MID % (test code = GMID%) 6.3 % 0.0-10.0 CT ABDOMEN AND PELVIS W/O CONTRAST *OW*2018-07-18 19:19:41EXAM: CT abdomen and pelvis without contrastLocation: R16 INDICATION: Lower abdominal painCOMPARISON: CT abdomen and pelvis on 07/04/18TECHNIQUE: Axial images of the abdomen and pelvis were obtained withoutcontrast. Coronal and sagittal reformatted images were performed.DISCUSSION:Lower thorax: Unremarkable.Hepatobiliary: 1.4 cm simple right hepatic lobe cyst is noted. The liver isotherwise unremarkable. No biliary ductal dilatation.Gallbladder: Unremarkable.Spleen: Multiple calcified splenic granulomas are noted.Pancreas: Unremarkable.Kidneys: There is mild urothelial thickening of the left renal pelvis and theleft ureter, with mild left periureteral fat stranding. No urinary tractcalculus isseen. There is minimal left ureterectasis. No gross evidence ofsolid renal mass is identified.Adrenals: Unremarkable.Lymph nodes: No lymphadenopathy.Peritoneum/retroperitoneum: No intraabdominal free air or free fluid.Vessels: Mild atherosclerotic calcification, without abdominal aortic aneurysm.Pelvic organs/bladder: The uterus is not identified. The ovaries and bladderare unremarkable.Bowel: The appendix is normal. No abnormal bowel wall thickening or bowelobstruction is seen.Bones/soft tissues:No fracture or evidence of bony neoplastic process. L5 ismostly sacralized. There is grade 1 anterolisthesis and severe facet arthrosisat L4-5. No hernia is seen.IMPRESSION:1. Mild left sided urothelial thickening in the renal pelvis and ureter, withmild periureteral fat stranding and minimal left ureterectasis. No urinarytract calculus is seen. Differential considerations include a urinary tractinfection and/or left-sided pyelonephritis versus a recently passed calculus.The latter of these is felt to be less likely given the absence of a renal orureteral calculus on the prior CT on 07/04/18. Correlation with urinalysis andclinical findings is needed.2. Normal appendix.3. Mostly sacralized L5 vertebra with adjacent segment degenerative changes andspondylolisthesis at L4-5.One or more of the following dose reduction techniques were used: Automatedexposure control, adjustment of the mA and/or kV according to patient size,and/or utilization of iterative reconstruction technique.DLP: 1148 mGy-cm CTDI 24 mGyURINALYSIS W/O MICROSCOPICOW 2018-07-18 19:04:00 Test Item Value Reference Range Interpretation Comments COLOR (test code = Yellow YELLOW COLU) CLARITY (test code = SLT HAZY CLEAR A CLA) GLUCOSE UR (test Negative NEGATIVE code = UA GLUCOSE) BILI UR (test code = Negative NEGATIVE BILE) KETONES UR (test Negative NEGATIVE code = KIP) SP GRAVITY (test 1.015 1.005-1.030 code = SPGR) PH UR (test code = 7.0 4.5-8.0 PH) PROTEIN UR (test 2+ NEGATIVE A code = PU) NITRITE UR (test Positive NEGATIVE code = NITRITE) UROBIL UR (test code 0.2 E.U./dL = GUROQ) UROBIL UR (test code UROBILINOGEN = GUROQC) REFERENCE RANGE 0.2 - 1.0 EU/dL BLOOD UR (test code 3+ NEGATIVE A = UA BLOOD) LEUK ES UR (test 3+ NEGATIVE A code = LEUK) CHEM8+ i-STAT OW2018-07-18 18:57:00 Test Item Value Reference Range Interpretation Comments SODIUM (test code = HARLEY) 138 mmol/L 138-146 POTASSIUM (test code = KI) 3.8 mmol/L 3.5-4.9 CHLORIDE (test code = CLI) 111 mmol/L 98-109 H CA IONIZED (test code = ICAI) 0.99 mmol/L 1.12-1.32 L GLUCOSE (test code = GLUI) 119 mg/dL 75-100 H TCO2 (test code = TCO2) 19 mmol/L 24-29 L BUN (test code = BUN1) 7 mg/dL 8-26 L CREATININE (test code = CREAI) 0.8 mg/dL 0.6-1.3 ANION GAP (test code = GANG) 12.0 mmol/L HGB (test code = MHB) 13.9 g/dL 12.0-17.0 HCT (test code = MHCT) 41.0 % 38.0-51.0 CBC (INCLUDES AUTOMATED DIFFERENTIAL) *2018-07-18 18:53:00 Test Item Value Reference Range Interpretation Comments WBC (test code = WBC) 13.1 10\S\3/uL 4.5-11.0 H RBC (test code = RBC) 4.26 10\S\6/uL 4.20-5.60 HGB (test code = HBG) 14.8 g/dL 12.0-15.5 HCT (test code = HCT) 47.3 % 35.0-44.0 H MCV (test code = MCV) 111.0 fL 81.0-99.0 H MCH (test code = MCH) 34.7 pg 27.0-31.0 H MCHC (test code = MCHC) 31.3 g/dL 32.0-36.0 L RDW (test code = RDW) 12.2 % 11.5-14.5 PLT (test code = PLT) 242 10\S\3/uL 130-400 MPV (test code = OMPV) 7.9 fL 6.2-10.2 NEUTROP # (test code = NE#) 10.4 10\S\3/uL 1.6-8.0 H LYMPH # (test code = LY#) 1.9 10\S\3/uL 1.1-3.5 MID # (test code = GMID#) 0.8 10\S\3/uL 0.0-1.1 GRA % (test code = GRA%) 79.7 % 35.0-73.0 H LYMPH % (test code = GLY%) 14.3 % 20.0-55.0 L MID % (test code = GMID%) 6.0 % 0.0-10.0 XR ABDOMEN AP 1 VIEW EA *OW*2018-07-16 18:59:05Exam: KUBHISTORY: Abdominal pain with constipationLocation: [id number]:Bowel gas pattern is nonspecific without mechanical obstruction. No radiopaquestones are identified. No evidence of visceromegaly.IMPRESSION:1. Unremarkable exam.CT ABDOMEN AND PELVIS W/O CONTRAST *OW*2018-07-04 20:54:58CT OF THE ABDOMEN AND PELVIS WITHOUT CONTRASTLocation code:[id number] HISTORY: Fall, right flank injuryCOMPARISON: None available.TECHNIQUE: Axial images of the abdomen and pelvis were obtained withoutcontrast. Images were reformatted to create coronal and sagittalreconstructions. One or more of the following dose reduction techniques wereused: Automatic exposure control, adjustment of the mA and/orkV according topatient size, and/or utilization of iterative reconstruction technique.DLP:1100 mGy-cm.FINDINGS: ABDOMENBandlike scarring versus subsegmental atelectasis is identified in the lingulaand right middle lobe. Remaining visualized intrathoracic contents areunremarkable.There is a simple appearing cyst in the right hepatic lobe measuring 13 mm. Nofurther intrahepatic lesions are seen on noncontrast imaging. Spleniccalcifications are present. No further lesions are seen. Unopacified pancreas,adrenal glands and kidneys are within normal limits. There is no hydronephrosisor hydroureter. There is no urolithiasis. Gallbladder is incompletelydistended.Small and large bowel loops are normal incaliber. There is no abnormal muralthickening or obstruction. Normal caliber appendix is seen in theright lowerquadrant. The stomach and gastroesophageal junction are within normal limits.There is no free intraperitoneal air or fluid. There is no mesenteric orretroperitoneal adenopathy.FINDINGS: PELVISThere is surgical absence of the uterus. The urinary bladder is mildlydistended. No bladder wall thickening. There is no pelvic or inguinaladenopathy. There is a transitional vertebra at lumbosacral junction. There isgrade 1-2 anterolisthesis of L4 on L5 secondary to moderate facet arthropathy.The remaining visualized skeletal structures are within normal limits. Nodiscrete osteolytic or osteosclerotic lesions are seen.IMPRESSION:1. No posttraumatic sequelae within the abdomen and pelvis.2. Simple cyst in the right hepatic lobe measuring 13 mm.3. Bandlike scarring versus subsegmental atelectasis in the right middle lobeand lingula.4. Grade 1-2 anterolisthesis of L4 on L5 secondary to facet arthropathy.XR ANKLE RIGHT COMPLETE 3 VIEWS *OW 2018-06-05 21:18:01Exam: Right ankle 3 views AP, lateral and oblique.Location: [id number]: sp fallen r ankle painFINDINGS: No significant bone or joint abnormality is seen. The bonycortices are intact. The joint spaces are well preserved. The soft tissuesare normal.Impression:Unremarkable exam.XR KNEE RIGHT 3 VIEWS *OW*2018-06-05 21:16:48Exam: Left knee 3 views AP, lateral and obliqueLocation: [id number]: sp fallen r knee painFindings:Mild degenerative changes are present. No other bone or joint abnormality isseen. The bony cortices are intact. No joint effusion is seen. The soft tissuesare normal.Impression:Osteoarthritis.
[2021-09-15 14:57] LABS: Absolute Lymphocytes (CBC) 1.4 K/uL (0.7-4.9); Hematocrit 37.7 % (36.0-45.0); RBC Red Blood Cell Count 3.72 M/uL (3.86-4.86)
[2021-09-15 15:04] LABS: Potassium 3.6 mmol/L (3.5-5.1)
--- NOTE | 2021-09-15 15:24 | ER ---
Nurse's Notes [facility] Name: Kelley Mead Age: 61 yrs Sex: Female : 1960 Arrival Date: 09/15/2021 Time: 13:46 Bed 4 Private MD: Diagnosis: Renal insufficiency Presentation: 09/15 13:49 Chief complaint: EMS states: Pt from [facility], sent by staff for low potassium which ph was resulted on 09/12, did not know what the low value was. No lab results sent with pt, pt has no complaints. Staff also reported that pt's lithium was d/c d/t high lithium level. VSS 106/78, 89 HR, 14 R, 100% RA, 152 BGL. Coronavirus screen: Vaccine status: Patient reports receiving the 2nd dose of the covid vaccine. Ebola Screen: No symptoms or risks identified at this time. Initial Sepsis Screen: Does the patient meet any 2 criteria? No. Patient's initial sepsis screen is negative. Does the patient have a suspected source of infection? No. Patient's initial sepsis screen is negative. Risk Assessment: Do you want to hurt yourself or someone else? Patient reports no desire to harm self or others. Onset of symptoms was September 15, 2021. 13:49 Method Of Arrival: EMS: [facility] ph 13:49 Acuity: MARKEL 3 ph Historical: - Allergies: 13:54 GABAPENTIN; ph - Immunization history:: Adult Immunizations unknown. - Social history:: Smoking status: Patient reports the use of cigarette tobacco products, smokes one pack cigarettes per day. Screenin:55 Abuse screen: Denies threats or abuse. Denies injuries from another. Nutritional ph screening: No deficits noted. Tuberculosis screening: No symptoms or risk factors identified. Fall Risk None identified. Assessment: 14:30 General: Appears in no apparent distress. Behavior is calm, cooperative, appropriate ph for age, Denies fever, feeling ill. Pain: Denies pain. Neuro: Level of Consciousness is awake, alert, obeys commands, Oriented to person, place, time, situation. Cardiovascular: Capillary refill < 3 seconds in bilateral fingers Patient's skin is warm and dry. Respiratory: Airway is patent Respiratory effort is even, unlabored, Respiratory pattern is regular, symmetrical. 15:37 Reassessment: Patient appears in no apparent distress at this time. Patient and/or ph family updated on plan of care and expected duration. Pain level reassessed. Report called to MIRELLA Castro at [facility]. 15:54 Reassessment: [facility] en route to [facility] patient. iw 16:40 Reassessment: EMS at bedside, pt transported back to [facility], copy of lab ph results sent w/ pt. Vital Signs: 14:36 BP 97 / 60; Pulse 70; Resp 16; Temp 97.6; Pulse Ox 100% on R/A; ph ED Course: 13:46 Patient arrived in ED. ph 13:48 Kelley Caro, RN is Primary Nurse. ph 13:49 Adalberto Hernandez DO is Attending Physician. ms3 13:54 Triage completed. ph 13:54 Arm band placed on Patient placed in an exam room, on a stretcher. ph 13:55 Patient has correct armband on for positive identification. Placed in gown. Bed in low ph position. Call light in reach. Side rails up X2. Client placed on continuous cardiac and pulse oximetry monitoring. NIBP monitoring applied. 14:34 Initial lab(s) drawn, by me, sent to lab. Inserted saline lock: 24 gauge in left ph antecubital area, using aseptic technique. Blood collected. 16:50 No provider procedures requiring assistance completed. IV discontinued, intact, ph bleeding controlled, No redness/swelling at site. Pressure dressing applied. Administered Medications: No medications were administered Medication: 14:36 VIS not applicable for this client. ph Outcome: 15:23 Discharge ordered by . ms3 16:55 Discharged to care home. Report called to Matthew VU ph 16:55 Condition: good 16:57 Patient left the ED. ph Signatures: Tiki Sosa, MIRELLA RN Kelley Caro RN RN Adalberto Hernandez DO DO ms3
--- NOTE | 2021-09-15 15:24 | EDPHYS ---
Physician Documentation [facility] Name: Kelley Mead Age: 61 yrs Sex: Female : 1960 Arrival Date: 09/15/2021 Time: 13:46 Bed 4 Private MD: ED Physician Adalberto Hernandez HPI: 09/15 15:26 This 61 yrs old Female presents to ER via EMS with complaints of Abnormal Lab ms3 Results. 15:26 61-year-old female presents from [facility] via [facility] for low ms3 potassium. Patient is without complaints. Patient denies pain. Patient denies alleviating or inciting factors.. Onset: The symptoms/episode began/occurred at an unknown time. Severity of symptoms: Pain is currently a 0 / 10. Historical: - Allergies: 13:54 GABAPENTIN; ph - Immunization history:: Adult Immunizations unknown. - Social history:: Smoking status: Patient reports the use of cigarette tobacco products, smokes one pack cigarettes per day. ROS: 15:26 Constitutional: Negative for fever, and chills. Neck: Negative for injury, pain, and ms3 swelling, Cardiovascular: Negative for chest pain, and palpitations. Respiratory: Negative for shortness of breath, cough, wheezing, and pleuritic chest pain, Abdomen/GI: Negative for abdominal pain, nausea, vomiting, diarrhea, and constipation, MS/Extremity: Negative for injury and deformity, Skin: Negative for injury, rash, and discoloration. 15:26 All other systems are negative. Exam: 15:26 Constitutional: This is a well developed, well nourished patient who is awake, alert, ms3 and in no acute distress. Head/Face: Normocephalic, atraumatic. ENT: Nares patent. No nasal discharge, no septal abnormalities noted. Tympanic membranes are normal and external auditory canals are clear. Oropharynx with no redness, swelling, or masses, exudates, or evidence of obstruction, uvula midline. Mucous membranes moist. Neck: Trachea midline, no cervical lymphadenopathy. Supple, full range of motion without nuchal rigidity, or vertebral point tenderness. No Meningismus. Chest/axilla: Normal chest wall appearance and motion. Nontender with no deformity. Cardiovascular: Regular rate and rhythm with a normal S1 and S2. No gallops, murmurs, or rubs. Normal PMI, no JVD. No pulse deficits. Respiratory: Lungs have equal breath sounds bilaterally, clear to auscultation and percussion. No rales, rhonchi or wheezes noted. No increased work of breathing, no retractions or nasal flaring. Abdomen/GI: Soft, non-tender, with normal bowel sounds. No distension or tympany. No guarding or rebound. No evidence of tenderness throughout. Skin: Warm, dry with normal turgor. Normal color with no rashes, no lesions, and no evidence of cellulitis. Vital Signs: 14:36 BP 97 / 60; Pulse 70; Resp 16; Temp 97.6; Pulse Ox 100% on R/A; ph MDM: 14:00 Patient medically screened. ms3 15:26 Differential Diagnosis Hypokalemia vs Anemia vs MISTI. Data reviewed: vital signs, nurses ms3 notes, lab test result(s). Counseling: I had a detailed discussion with the patient and/or guardian regarding: the historical points, exam findings, and any diagnostic results supporting the discharge/admit diagnosis, lab results, the need for outpatient follow up, to return to the emergency department if symptoms worsen or persist or if there are any questions or concerns that arise at home. 09/15 13:49 Order name: CBC with Diff; Complete Time: 15:19 ms3 09/15 13:49 Order name: BMP; Complete Time: 15:07 ms3 Administered Medications: No medications were administered Disposition Summary: 09/15/21 15:23 Discharge Ordered Location: Home ms3 Condition: Stable ms3 Diagnosis - Renal insufficiency ms3 Followup: ms3 - With: Private Physician - When: 2 - 3 days - Reason: Re-evaluation by your physician Forms: - Medication Reconciliation Form ms3 - Thank You Letter ms3 - Antibiotic Education ms3 - Prescription Opioid Use ms3 Signatures: Dispatcher [employer] Kelley Jacob RN RN ph Adalberto Hernandez DO DO ms3 Corrections: (The following items were deleted from the chart) 15:26 15:23 Elevated blood-pressure reading, without diagnosis of hypertension ms3 ms3
[2021-09-15 17:04] VITALS: BP 97/60; TEMP 97.6; O2SAT 100
== END 2021-09-15 16:57 | disposition home or self-care (01) ==
LOC: ER 13:44
DX: N28.9 Disorder of kidney and ureter, unspecified (principal); F17.210 Nicotine dependence, cigarettes, uncomplicated; Z88.8 Allergy status to other drugs, medicaments and biological substances
CPT/HCPCS: 36415; 80048; 85025; 99283

== ENCOUNTER 2021-09-30 16:42 | Emergency (ER) | payer OTHER ==
--- OUTSIDE RECORDS SUMMARY | 2021-09-30 16:46 | XMS REPORT | Continuity of Care Document ---
:1960 Author Organization [facility] t Address [address] [place] [address] Care Team Providers Name Role Phone BACCAM Primary Care Physician Unavailable DR SEDA Attending Clinician Unavailable [id number] Attending Clinician Unavailable [id number] Attending Clinician Unavailable DR Anastasia PURVIS Attending Clinician Unavailable AhmedSampson Attending Clinician Unavailable Anastasia Nino Attending Clinician Unavailable DR DAMIÁN Attending Clinician Unavailable Susan Mcgregor Attending Clinician Unavailable DR NASREEN Attending Clinician Unavailable DR Anjana GIL Attending Clinician Unavailable Ofelia Attending Clinician Unavailable DR BEATRIZ Attending Clinician Unavailable DR Jaun HENDERSON Attending Clinician Unavailable DR Irasema MASON Attending Clinician Unavailable DR Andressa BENITES Attending Clinician Unavailable DR RASHAAD Attending Clinician Unavailable DR ZARA Attending Clinician Unavailable DR SARIKA Attending Clinician Unavailable DR MEGAN Attending Clinician Unavailable DR MIGUEL ANGEL Attending Clinician Unavailable DR Jaylene CALLES Attending Clinician Unavailable DR SEDA Admitting Clinician Unavailable DR Anastasia PURVIS Admitting Clinician Unavailable Balbir, Sampson Admitting Clinician Unavailable Physician, Primary or Family Admitting Clinician Unavailyusef STEEL DR Admitting Clinician Unavailable Balbir R Admitting Clinician Unavailable DR NASREEN Admitting Clinician [...] Expiration Date Jaylene galarza MEDICARE - OP [id number] MEDICARE - OP [id number] MEDICARE - OP [id number] 0500 [id number] 2021 00:00:00 0762 [id number] 2021 00:00:00 0700 [id number] 2015 00:00:00 MEDICARE A-[place]: [id number] 2003 [facility] 00:00:00 [facility] [id number] 2016 [facility] 00:00:00 PLUS - CORRECTION CARE Problems Condition Condition Condition Status Onset [...] Date Clinician aspirin DA Active U UNKNOWN [facility] 04-27 Lavina 00:00: Health[facility] 00 are [facility] GABAPENT DA Active SEVERE rash [place] [facility] ASPIRIN DA Active SEVERE rash [facility] No Known MA Active UNKNOWN [facility] Gabapent DA Active Unknown [facility] IV Dye, DA Active Unknown [facility] Aspirin DA Active Unknown [facility] Social History Smoking Status Start Date Stop Date Source Heavy Tobacco Smoker [place] [facility] Medications Ordered Filled Start [...] 0.25 mg da tablet tablet tablet [facility] alprazolam alprazolam No alprazolam [place] 0.5 mg 0.5 mg 0.5 mg da tablet tablet tablet [facility] amoxicillin amoxicillin No amoxicilli [place] 500 mg 500 mg n 500 mg da capsule capsule capsule [facility] bromphenira bromphenira No [...] da mg tablet mg tablet mg tablet [facility] Chantix 1 Chantix 1 No Chantix 1 [place] mg tablet mg tablet mg tablet da [facility] ciprofloxac ciprofloxac No ciprofloxa [place] in 500 mg in 500 mg jenna 500 mg da tablet tablet tablet [facility] citalopram citalopram No citalopram [place] 20 mg 20 mg 20 mg da tablet tablet tablet [facility] clotrimazol clotrimazol No clotrimazo [place] e 1 % e 1 % le 1 % da topical topical topical [facility] cream cream cream [facility] Constulose Constulose No Constulose [place] 10 gram/15 10 gram/15 10 gram/15 da mL oral mL oral mL oral [facility] solution solution solution [facility] cyclobenzap cyclobenzap No [...] a l release [facility] prednisone prednisone No prednisone [place] 10 mg 10 mg 10 mg da tablet tablet tablet [facility] quetiapine quetiapine No quetiapine [place] ER 150 mg ER 150 mg ER 150 mg da tablet,exte tablet,exte tablet,ext [facility] nded nded ended al release 24 release 24 release 24 Health hr hr hr Outreac h Program risperidone risperidone No risperidon [place] 0.5 mg 0.5 mg e 0.5 mg da tablet tablet tablet [facility] sulfamethox sulfamethox No sulfametho [place] azole 800 azole 800 xazole 800 da mg-trimetho mg-trimetho mg-trimeth [facility] prim 160 mg prim 160 mg oprim 160 al tablet tablet mg tablet [facility] tramadol 50 tramadol 50 No tramadol [place] mg tablet mg tablet 50 mg da tablet [facility] Ventolin Ventolin No Ventolin [place] HFA 90 HFA 90 HFA 90 da mcg/actuati mcg/actuati mcg/actuat [facility] on aerosol on aerosol ion al inhaler inhaler aerosol Health inhaler Outreac h Program Vital Signs Vital Name Observation [...] Procedure Date / Time Performed Performing Clinician [facility] shar [id number] 2021-05-30 00:00:00 CHAKR.05 [facility] [id number] 2021-05-30 00:00:00 CHAKR.05 [facility] [id number] 2021-05-30 00:00:00 CHAKR.05 [facility] [id number] 2021-05-30 00:00:00 CHAKR.05 [facility] [id number] 2021-05-30 00:00:00 CHAKR.05 [facility] [id number] 2021-05-30 00:00:00 CHAKR.05 [facility] [id number] 2021-05-30 00:00:00 MUM [facility] [id number] 2021-04-27 00:00:00 [facility] Encounters Start End Encounter Admission Attending Care Care Encounter Source Date/Time Date/Time Type Type Clinicians Facility Department ID 2021-08-13 Outpatient VERA STACKPO [id number] El 08:50:33 [id number] [id number] 2021-07-14 Outpatient ELCAMPO ELCAMPO [id number] El 09:53:28 [id number] [facility] 2021-05-14 Outpatient [facility] [id number] [facility] 17:18:15 [id number] [facility] 2021-08-14 2021-08-14 Outpatient VERA COREY [facility] [id number] [place] 08:51:00 08:51:00 [id number] Boone aragon [id number] [facility] 2021-07-21 2021-07-21 Outpatient Shar PURVIS [facility] [id number] [facility] 00:29:00 02:15:00 [facility] [place] 2021-07-14 2021-07-14 Outpatient M VERA STACK [facility] [id number] [place] 10:03:00 20:46:00 [id number] Cam po [id number] [facility] 2021-05-28 2021-05-31 Inpatient EM Ahmed, Madhav [facility] INTM.01 BP30 [id number] [facility] 20:04:00 19:00:00 [id number] [facility] are [facility] 2021-05-28 2021-05-31 Inpatient EM Ahmed, [facility] INTM.01 BP00 [id number] [facility] 20:04:00 19:00:00 90 [facility] are [facility] 2021-05-28 2021-05-28 Outpatient Trung HCANW REF [id number] [facility] 19:16:00 19:16:00 Henrique [id number] [facility] are [facility] 2021-05-27 2021-05-27 Outpatient Shar STEEL [facility] [id number] [facility] 05:48:00 07:50:00 SHREYAS [facility] 2021-05-14 2021-05-19 Inpatient EL Balbir, Wier [facility] ADMI BP30 [id number] [facility] 14:05:00 10:58:00 [id number] [facility] are [facility] 2021-05-14 2021-05-19 Inpatient EL Penniemed, [facility] ADMI [id number] [facility] 14:05:00 10:58:00 47 [facility] are [facility] 2021-05-15 2021-05-15 Outpatient Balbir, Meer HCANW REF BP3 [id number] [facility] 15:56:00 15:56:00 [id number] [facility] are [facility] 2021-04-27 2021-04-27 Inpatient EL Ahmed, Madhav [facility] MEDI.01 BP30 [id number] [facility] 08:33:00 11:30:00 [id number] [facility] are [facility] 2021-03-29 2021-03-29 Outpatient MARCI CHEUNG [facility] [id number] [facility] 00:05:00 01:13:00 [facility] 2021-03-09 2021-03-09 Outpatient E JEFFERY [facility] [id number] [facility] 00:24:00 03:18:00 [facility] [place] 2021-01-26 2021-01-26 Outpatient E JEFFERY [facility] [id number] [facility] 00:17:00 01:23:00 [facility] [place] 2020-01-18 2020-01-18 Outpatient Benson_Donn ENRIQUE GAHOP [id number] [place] 11:45:00 11:45:00 e [id number] [facility] 2019-04-29 2019-04-29 Outpatient Benson_Donn SULLIVANHOP MEHOP [id number] [place] 03:23:00 03:23:00 e [id number] [facility] 2019-04-03 2019-04-03 Outpatient E STEEL, [facility] [id number] [facility] 13:52:00 14:48:00 SHREYAS [facility] [place] 2019-03-27 2019-03-27 Outpatient E BEATRIZ [facility] [id number] [facility] 15:56:00 17:00:00 ANIBAL [facility] [place] 2019-03-02 2019-03-02 Leonid ENRIQUE [place] - [id number] M [place] 00:00:00 00:00:[address] da SENIOR TAX SPECIALIST: [id number] [facility] [employer] [address] [facility] [address] [place] [facility] [id number] , Ph. 2019-02-02 2019-02-02 Outpatient E YANIV [facility] [id number] [facility] 21:08:00 23:25:00 LORA [facility] [place] 2019-02-02 2019-02-02 Leonid ENRIQUE [place] - [id number] M [facility] 00:00:00 00:00:[address] da SENIOR TAX SPECIALIST: [id number] [employer] [address] [facility] [address] [place] [facility] [id number] , Ph. 2019-01-27 2019-01-27 Outpatient E BEATRIZ [facility] [id number] [facility] 08:52:00 09:30:00 [facility] [place] 2019-01-09 2019-01-09 Outpatient E BEATRIZ [facility] [id number] [facility] 13:23:00 14:00:00 [facility] [place] 2018-12-30 2018-12-31 Outpatient E MARCI DOWNEY [facility] [id number] [facility] 22:58:00 00:30:00 [facility] [place] 2018-12-27 2018-12-27 Outpatient E MARCI DOWNEY [facility] [id number] [facility] 20:15:00 20:51:00 [facility] [place] 2018-12-21 2018-12-21 Outpatient E JONI HENDERSON [facility] [id number] [facility] 14:57:00 16:29:00 [facility] [place] 2018-12-16 2018-12-16 Outpatient E MARLON [facility] [id number] [facility] 18:53:00 19:21:00 DOMINIQUE [facility] [place] 2018-12-15 2018-12-15 Outpatient E BEATRIZ [facility] [id number] [facility] 19:25:00 20:35:00 [facility] [place] 2018-12-10 2018-12-10 Outpatient E DELMIS [facility] [id number] [facility] 20:55:00 21:30:00 PAWAN [facility] [place] 2018-12-09 2018-12-09 Outpatient E LILA NEIL [facility] [id number] [facility] 16:33:00 17:20:00 [facility] [place] 2018-11-21 2018-11-21 Outpatient E ZARA [facility] [id number] [facility] 21:31:00 21:43:00 HAS [facility] [place] 2018-11-21 2018-11-21 Outpatient E SHEIKH [facility] [id number] [facility] 04:48:00 05:58:00 WAS [facility] [place] 2018-11-10 2018-11-11 Outpatient E SHEIKH [facility] [id number] [facility] 23:41:00 01:16:00 WASIM [facility] [place] 2018-11-07 2018-11-07 Outpatient E BEATRIZ [facility] [id number] [facility] 15:27:00 [facility]34[facility] 2018-11-02 2018-11-02 Outpatient E LILA NEIL [facility] [id number] [facility] 20:45:00 22:15:00 [facility]ica [facility] 2018-10-31 2018-10-31 Outpatient E JONI HENDERSON [facility] [id number] [facility] 21:09:00 22:45:00 [facility] 2018-10-29 2018-10-29 Outpatient E DELMIS, [facility] [id number] [facility] 22:10:00 22:46:00 [facility] 2018-10-27 2018-10-27 Outpatient E MARCI DOWNEY [facility] [id number] [facility] 20:01:00 21:21:00 [facility]ica [facility] 2018-10-15 2018-10-15 Outpatient E PURVIS, [facility] [id number] [facility] 14:34:00 [facility]:32:00 [facility] 2018-10-08 2018-10-08 Outpatient E ANGELINA GUZMAN [facility] [id number] [facility] 13:41:00 18:34:00 [facility] 2018-10-07 2018-10-07 Outpatient E MARCI DOWNEY [facility] [id number] [facility] 20:39:00 21:52:00 [facility] 2018-09-16 2018-09-17 Outpatient E JONI HENDERSON [facility] [id number] [facility] 23:49:00 01:16:00 [facility] 2018-09-14 2018-09-14 Outpatient E BEATRIZ [facility] [id number] [facility] 21:26:00 22:27:00 [facility]IBAL [facility] 2018-09-01 2018-09-01 Outpatient E LILA NEIL [facility] [id number] [facility] 20:57:00 22:19:00 [facility] [place] 2018-09-01 2018-09-01 Outpatient E MIGUEL ANGELLAUREANO [facility] [id number] [facility] 16:36:00 18:35:00 [facility] [place] 2018-08-27 2018-08-27 Outpatient E LILA NEIL [facility] [id number] [facility] 21:54:00 23:02:00 [facility] 2018-08-24 2018-08-24 Outpatient E JONI HEDNERSON [facility] [id number] [facility] 19:52:00 20:35:[address] [facility] 2018-08-11 2018-08-11 Outpatient E STEVAN, [facility] [id number] [facility] 22:29:00 22:55:00 [facility] 2018-07-26 2018-07-26 Outpatient E HENDERSON, [facility] [id number] [facility] 15:46:00 17:10:00 [facility] 2018-07-20 2018-07-20 Outpatient E MARLON, [facility] [id number] [facility] 16:09:00 18:05:00 [facility] 2018-07-18 2018-07-18 Outpatient E BEATRIZ [facility] [id number] [facility] 18:00:00 19:54:00 [facility] 2018-07-18 2018-07-18 Outpatient E [facility] [id number] [facility] 18:05:00 18:05:00 [facility] 2018-07-16 2018-07-16 Outpatient E RASHAAD, LILA [facility] [id number] [facility] 18:21:00 19:20:00 [facility] 2018-07-04 2018-07-04 Outpatient E STEVAN [facility] [id number] [facility] 19:44:00 21:18:00 BETTY [facility] 2018-06-05 2018-06-05 Outpatient E JONI HENDERSON [facility] [id number] [facility] 19:35:00 21:08:00 [facility] Results Test Description Test Time Test Comments Results Result [facility] e Comments CT CHEST W/O 2021-07-21 CONTRAST *OW* 01:26:17 [facility] : 1960 Sex: F Ex [...] = BA#) 0.01 x10 3/uL 0.0-0.20 N [id number] 23:23:00 Test Item Value Reference Range Interpretation Comments VANCOMYCIN (test code = VANCO) 13.2 mcg/mL COAGULATION TIME [id number] 17:31:00 Test Item Value Reference Range Interpretation Comments COAGULATION TIME ACTIVATED (test 291 SECONDS 74-137 H code = ACT) THROMBOPLASTIN TIME [id number] 13:25:00 Test Item Value Reference Range Interpretation Comments THROMBOPLASTIN TIME 115.0 SECONDS 23.8-34.8 HH Critica l Value PARTIAL (test code = reporte d toFirst PTT) Name:ASHA Last Name:ANA DAVID READ BACK AND VERIFIEDby [facility] [id number], on 05/30/21, @ 8850.INTERPRETA TIVE DATA:Therapeuti c range: Unfractionated heparin:55 - 80 seconds Argatroban:1.5 to 3 times the basel ine PTT [id number] 13:25:00 Test Item Value Reference Range Interpretation Comments FIBRINOGEN (test code = FIB) 277 mg/dL 200-400 N BASIC METABOLIC [id number] 13:11:00 Test Item Value Reference Range Interpretation [...] CA) Reference Range May 2020 CBC W/AUTO [id number] 12:14:00 Test Item Value Reference Range Interpretation [...] BA#) 0.04 x10 3/uL 0.0-0.20 N RECOLLECTVANCOMYCIN [id number] 22:10:00 Test Item Value Reference Range Interpretation Comments VANCOMYCIN TROUGH (test code = 30.3 mcg/dL 10.0-20.0 H VANCT) PROTHROMBIN [id number] 21:12:00 Test Item Value Reference Range Interpretation [...] 2.5-3.5recurren t systemic emboli sm. RECOLLECTTHROMBOPLASTIN TIME [id number] 21:12:00 Test Item Value Reference Interpretation Comments Range THROMBOPLASTIN TIME 54.3 SECONDS 23.8-34.8 H SAMPLE W RECOLLECTED PARTIAL (test code AND MATCH ES PREVIOUS = PTT) RESULTINTERPRET ATIVE DATA:Therapeuti c range: Unfractionated heparin:55 - 80 seconds Argatroban:1.5 to 3 times the baseline PT T RECOLLECTCBC W/AUTO [id number] 05:02:00 Test Item Value Reference Range Interpretation [...] BA#) 0.04 x10 3/uL 0.0-0.20 N RECOLLECTPROTHROMBIN [id number] 04:56:00 Test Item Value Reference Range Interpretation [...] 2.5-3.5recurren t systemic emboli sm. THROMBOPLASTIN TIME [id number] 04:56:00 Test Item Value Reference Range Interpretation Comments THROMBOPLASTIN TIME 128.4 SECONDS 23.8-34.8 HH Critica l Value PARTIAL (test code = reporte d toFirst PTT) Name:JOS campuzano Name:ROBYN LOCKE READ BACK AND VERIFIEDby STAR ROGERS, on 05/29/21, @ 5666.INTERPRETA TIVE DATA:Therapeuti c range: Unfractionated heparin:55 - 80 seconds Argatroban:1.5 to 3 times the basel ine PTT BASIC METABOLIC [id number] 04:05:00 Test Item Value Reference Range Interpretation [...] New = CA) Reference Range May 2020 [id number] 04:02:00 Test Item Value Reference Range Interpretation Comments PHOSPHOROUS (test code 3.5 mg/dL 2.4-5.1 N Brigido kern note: New = PHOS) Reference Range May 2020 [id number] 04:02:00 Test Item Value Reference Range Interpretation Comments MAGNESIUM (test code = 1.8 mg/dL 1.6-2.6 N Pleas e note: New MAG) Reference Range May 2020 VANCOMYCIN [id number] 02:40:00 Test Item Value Reference Range Interpretation Comments VANCOMYCIN TROUGH (test code = 36.1 mcg/dL 10.0-20.0 H VANCT) LACTIC [id number] 00:53:00 Test Item Value Reference Range Interpretation Comments LACTIC ACID (test code = LACT) 1.50 mmol/L 0.5-2.0 N COVID 19 INHOUSE [id number] 22:11:00 Test Item Value Reference Range Interpretation Comments COVID 19 INHOUSE NEGATIVE NEGATIVE Negative re sults, from AG (test code = patients wit h symptom onset [id number]) beyondfive days , should be treated as [...] ered in the context of a pa tieyudi's recent exposure s,history and the presence of clinical signs and sympt omsconsistent with COVID-19. BASIC METABOLIC [id number] 19:38:00 Test Item Value Reference Range Interpretation [...] CA) Reference Range May 2020 LIVER FUNCTION [id number] 19:38:00 Test Item Value Reference Range Interpretation [...] = ALKP) Reference Range May 2020 PROTHROMBIN [id number] 19:38:00 Test Item Value Reference Range Interpretation [...] 2.5-3.5recurren t systemic emboli sm. THROMBOPLASTIN TIME [id number] 19:38:00 Test Item Value Reference Range Interpretation Comments THROMBOPLASTIN TIME 31.6 SECONDS 23.8-34.8 N INTERPRE TATIVE PARTIAL (test code = DATA:Th erapeutic PTT) range: Unfractionated heparin:55 - 80 seconds Argatroban:1.5 to 3 times the basel ine PTT [id number] 19:38:00 Test Item Value Reference Range Interpretation Comments FIBRINOGEN (test code = FIB) 317 mg/dL 200-400 N LACTIC [id number] 19:35:00 Test Item Value Reference Range Interpretation Comments LACTIC ACID (test 4.40 mmol/L 0.5-2.0 HH Critical V alue reported code = LACT) toFirst Name:deandre gallo Last Name:toyin strange rnRESULTS READ BACK AND VERIFIEDby STAR MOSHER, on 05/28/21, @ 193 5. - XR FOOT 3 + V [id number] 19:33:00 [facility] : 1960 Sex: FPatient Name: TYRESE PUCKETT Unit No: [id number] EXAMS: CPT CODE: [id number] XR FOOT 3 + [place] [address] X-ray left foot. Location code: B2 INDICATION: [...] m2): Air Kerma (mGy): Trscr Dt/Tm: 05/28/2021 (193) by:[email or web address] Printed Date/Time: 05/28/2021 (1935) Name: TYRESE PUCKETT [facility] Phys: Herberth Montemayor MD [address] : 1960 Age: 61 Sex: [place] [address] Loc: BartolomeERSExam Date: 05/28/2021 Status: REG ER PH: FAX: PAGE 1 Signed ReportCBC W/AUTO [id number] 19:27:00 Test Item Value Reference Range Interpretation [...] 3/uL 0.0-0.20 N - XR CHEST 1 [id number] 19:27:00 [facility] : 1960 Sex: FPatient Name: TYRESE PUCKETT Unit No: [id number] EXAMS: CPT CODE: [id number] XR CHEST 1 V 41307 HISTORY: Code sepsis Location code: [id number]: Frontal view of the chest demonstrates a mildly enlarged cardiomediastinal silhouette with central venous congestion. The trachea is midline. The lungs are clear. There is no effusion or pneumothorax. The bones are intact. IMPRESSION: Mild cardiomegaly and central venous congestion without acute decompensation at 1927 Reported and signed by: Jeremy Howard M.D. CC: Herberth Blood MD Technologist: Gab Jugo Fluoro Time: DAP (Gy m2): Air Kerma (mGy): Trscr Dt/Tm: 05/28/2021 (1926) by:[email or web address] Printed Date/Time: 05/28/2021 (1929) Name: TYRESE PUCKETT [facility] Phys: Herberth Montemayor MD [address] : 1960 Age: 61 Sex: F [place] [address] Loc: P.ERS Exam Date: 05/28/2021 Status: REG ER PH: FAX: PAGE 1 Signed ReportMetyLyte 8 Panel *OW* [id number] 06:39:00 Test Item Value Reference Range Interpretation [...] TOE/S LEFT COMPLETE 3 VIEWS *OW*2021-05-27 06:25:19 [facility] CENTER[facility]: TYRESE PUCKETT : 1960 Sex: FEXAMINATION: [...] by: Sam Acuna MD 05/27/2021 6:25 AM [facility] [id number] 18:06:00 Test Item Value Reference Range Interpretation Comments VANCOMYCIN TROUGH (test code = 13.0 mcg/dL 10.0-20.0 N VANCT) RENAL FUNCTION [id number] 05:52:00 Test Item Value Reference Range Interpretation [...] code = PHOS) Reference Range May 2020 [id number] 17:32:00 Test Item Value Reference Range Interpretation Comments VANCOMYCIN (test code = VANCO) 14.4 mcg/mL BASIC METABOLIC [id number] 06:17:00 Test Item Value Reference Range Interpretation [...] CA) Reference Range May 2020 CBC W/AUTO [id number] 05:59:00 Test Item Value Reference Range Interpretation [...] BA#) 0.04 x10 3/uL 0.0-0.20 N VANCOMYCIN [id number] 16:32:00 Test Item Value Reference Range Interpretation Comments VANCOMYCIN TROUGH (test code = 30.8 mcg/dL 10.0-20.0 H VANCT) VITAMIN [id number] 06:00:00 Test Item Value Reference Range Interpretation Comments VITAMIN B12 (test 189 pg/mL 211-911 L Please not e: New code = VITB12) Reference Ran ge May 2020 FOLIC [id number] 06:00:00 Test Item Value Reference Range Interpretation Comments FOLIC ACID (test 3.37 ng/mL > 5.38 L Please note : New code = FOL) Reference Range May 2020 B-TYPE NATRIURETIC [id number] 05:57:00 Test Item Value Reference Range Interpretation Comments B-TYPE NATRIURETIC PEPTIDE (test 172 pg/mL <100 H code = BNP) BASIC METABOLIC [id number] 05:57:00 Test Item Value Reference Range Interpretation [...] CA) Reference Range May 2020 CBC W/AUTO [id number] 05:49:00 Test Item Value Reference Range Interpretation [...] AVG 11.04~~~~~~~~~~ ~~~~~~~ ~~~~~~~~~~~~~~~ ~~~~~~~ ~~~~~~~~~~~~~~~ ~~~~~~N ational Cholest segundo Education (NCEP ) Guidelines:~~~~ ~~~~~~~ ~~~~~~~~~~~~~~~ ~~~~~~~ ~~~~~~~~~~~~~~~ ~~~~~~~ ~~~~~ HDL Cholesterol<4 0mg/dL: HDL Cholesterol (Major risk factor for CHD)>60mg/dL: H DL Cholesterol (Ne gative risk factor for CHD)40-59mg/dL: Borderline Risk L DL Cholesterol<1 00mg/dL : Desirable LDL -C [id number] 0-159mg /dL: Borderline High Risk LDL-C [id number] 0-189mg /dL: High risk LDL-C concentration H DL-LDL Cholesterol is affected by a n umber of factors such as smoking, age an d sex.~~~~~~~~~~~ ~~~~~~~ ~~~~~~~~~~~~~~~ ~~~~~~~ ~~~~~~~~~~~~~~~ ~~~~~ [id number] 03:07:00 Test Item Value Reference Range Interpretation Comments PHOSPHOROUS (test code 4.2 mg/dL 2.4-5.1 N Pledamian e note: New = PHOS) Reference Range May 2020 [id number] 03:07:00 Test Item Value Reference Range Interpretation Comments MAGNESIUM (test code = 1.9 mg/dL 1.6-2.6 N Pleas e note: New MAG) Reference Range May 2020 BASIC METABOLIC [id number] 03:04:00 Test Item Value Reference Range Interpretation [...] CA) Reference Range May 2020 CBC W/AUTO [id number] 03:04:00 Test Item Value Reference Range Interpretation [...] N - CTA ABD AORTA IF LWEX [id number] 22:44:00 [facility] : 1960 Sex: FPatient Name: TYRESE PUCKETT Unit No: [id number] EXAMS: CPT CODE: [id number] [place] [address] EXAMINATION: - CTA ABD AORTA IF LWEX [...] both ankles. NONVASCULAR FINDINGS: Name: TYRESE PUCKETT [facility] Phys: Cathy Buenrostro BOOK TRIMMER [address] : 1960 Age: 61 Sex: [place] [address] Loc: P.[id number] 1 Exam Date: 05/14/2021 Status: ADM IN PH: FAX: PAGE 1 Signed Report (CONTINUED) Patient Name: TYRESE PUCKETT Unit No: [id number] EXAMS: CPT CODE: [id number] [place] [address] <Continued> Soft tissue swelling is seen around [...] July Mcgregor MD; Cathy Christensen Technologist: BRICE ACUNA RT(R),(CT) CTDI: 20.72 DLP: 2344 Trscr Dt/Tm: 05/14/2021 (6323) by:[email or web address] Printed Date/Time: 05/14/2021 (3953) Name: TYRESE PUCKETT [facility] Phys: Cathy Buenrostro [address]N [address] : 1960 Age: 61 Sex: [place] [address] Loc: P.0635 1 Exam Date: 05/14/2021 Status: ADM IN PH: FAX: PAGE 2 Signed Report- XR FOOT 3 + V [id number] 22:15:00 [facility] : 1960 Sex: FPatient Name: TYRESE PUCKETT Unit No: [id number] EXAMS: CPT CODE: [id number] XR FOOT 3 + [place] [address] EXAMINATION: - XR FOOT 3 + V [...] Mcgregor MD; Madhav Mcgregor MD Technologist: Adrianna Ryan Time: DAP (Gy m2): Air Kerma (mGy): Trscr Dt/Tm: 05/14/2021 (2215) by:[email or web address] Printed Date/Time: 05/14/2021 (8) Name: TYRESE PUCKETT [facility] Phys: Madhav Cardona MD [address] : 1960 Age: 61 Sex: [place] [address] Loc: P.[id number] 1 Exam Date: 05/14/2021 Status: ADM IN PH: FAX: PAGE 1 Signed ReportCOMPREHENSIVE METABOLIC [id number] 19:08:00 Test Item Value Reference Range Interpretation [...] Reference Range May 2020 HGBA1C - GLYCOSYLATED [id number] 18:04:00 Test Item Value Reference Range Interpretation Comments GLYCOSYLATED HEMOGLOBIN 4.7 % <5.7 N Diab etic >/= (HA1C) (test code = 6.5%Pred iabetes GLYHGB) 5.7-6.4%Normal < 5.7% CBC W/MANUAL [id number] 17:56:00 Test Item Value Reference Range Interpretation [...] = BASO) 1 % 0.2-1.0 N PROTHROMBIN [id number] 17:37:00 Test Item Value Reference Range Interpretation [...] 2.5-3.5recurren t systemic emboli sm. THROMBOPLASTIN TIME [id number] 17:37:00 Test Item Value Reference Range Interpretation Comments THROMBOPLASTIN TIME 29.9 SECONDS 23.8-34.8 N INTERPRE TATIVE PARTIAL (test code = DATA: erapeutic PTT) range: Unfractionated heparin:55 - 80 seconds Argatroban:1.5 to 3 times the basel ine PTT XR FOOT LEFT COMPLETE 3 VIEWS *OW*2021-03-09 01:45:03 [facility]ENTERName: TYRESE PUCKETT : 1960 Sex: FEXAMINATION:XR FOOT LEFT COMPLETE 3 VIEWS *OW*CLINICAL INDICATION:Female, 61 years old with Pain in left footCOMPARISON: NoneFINDINGS:Three view(s) of the foot obtained.Joint spaces: Anatomic.Bones: Noacute fracture.Soft tissues: Moderate swelling at the dorsum of the left forefoot.IMPRESSION: No acute fracture.Moderate swelling of the dorsum of the left forefoot.Electronically signed by: Tony Magaña MD 03/09/2021 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 There is mild joint space narrowing with subchondralsclerosis and osteophyte formation. The soft tissues are unremarkable.IMPRESSION: Mild osteoarthritis with otherwise no acute radiographicabnormality.XR ANKLE RIGHT 2 VIEW *OW*2019-04-03 14:29:56Right ankle, 2 viewsLocation Code: [id number] HISTORY: Ankle painCOMPARISON: None. COMMENTS: AP and [...] 0.010 ng/mL 0.000-0.045 Mety[employer]te 8 Panel *OW* [id number] 22:06:00 Test Item Value Reference Range Interpretation [...] ABDOMEN AND PELVIS W/O CONTRAST *OW*2018-12-31 00:19:36LOCATION: [id number]: 58-year-old female with periumbilical abdominal pain.COMMENT: Axial [...] *OW*2018-11-11 01:06:25Xray left shoulder 3 viewsLocation Code: Y19Pqofrcodws: None availableCLINICAL HISTORY: PainFindings: No plain radiographic [...] 0.0-10.0 XR ANKLE RIGHT COMPLETE 3 VIEWS *[id number] 21:45:443 views right ankleDictation Location: [id number] HISTORY: Ankle painTechnique:AP, oblique, and lateral views [...] LAT *OW*2018-10-31 22:41:37Right humerus 2 viewsDictation Location: [id number] HISTORY: painTECHNIQUE:AP and lateral views were obtained. FINDINGS: Bony mineralization is normal without lytic or sclerotic lesions. No evidenceof fracture, dislocation, degenerative changes or periostitis. Regional jointspaces are unremarkable. Soft tissues are unremarkable without calcificationor radiopaque foreign bodies.IMPRESSION:No abnormalities demonstrated.XR ABDOMEN 2 VIEWS W/PA CHEST *OW*2018-10-27 21:10:45 LOCATION: [id number]: 58-year-old female with constipation.COMMENT:Supine and upright radiographs ofthe abdomen were obtained along with afrontal chest radiograph. The abdomen is compared to a prior study uytkjgef11/30/19, and the chest is compared to a [...] in the abdomen examination.XR KNEE LEFT 3 [id number] 15:50:45Left knee, 3 viewsLocation Code: H0CZSHJGEI HISTORY:[id number]: Pain in left kneeCOMMENTS: AP, lateral, and [...] XR KNEE LEFT 3 VIEWS *OW*2018-10-07 21:40:26LOCATION: [id number]: 58-year-old female who suffered an unspecified fall.COMMENT: Frontal, oblique, and lateral radiographs of the left knee were obtained.An older examination obtained 09/17/18 is available for comparison.The skeleton is intact, and normally mineralized. The joint spaces are wellmaintained. The soft tissues are unremarkable. IMPRESSION:Unremarkable radiographic examination of the left knee.XR KNEE LEFT 3 VIEWS *OW*2018-09-17 00:43:54LOCATION: [id number]: 58-year-old female who presents with left knee pain after suffering afall.COMME NT: Frontal, oblique, and lateral radiographs of the left knee were obtained.The skeleton is intact, and normally mineralized. The joint spaces are wellmaintained. The soft tissues are unremarkable. IMPRESSION:Unremarkable radiographic examination of the left knee.XR SPINE LUMBAR COMPLETE *OW* 2018-09-17 00:38:17LOCATION: [id number]: 58-year-old female with back pain.COMMENT:Frontal, lateral, L5-S1 [...] lumbar spine.XR ANKLE RIGHT COMPLETE 3 VIEWS *[id number] 21:39:143 views right ankleLocation: S45HLACPZPQ HISTORY: Ankle painTechnique:AP, oblique, and lateral views [...] 3 VIEWS *OW*2018-09-01 21:34:26Left shoulder 3 viewsLocation: [id number] HISTORY: painTechnique:Transscapular Y Internal and external rotation views were obtained. Findings:Bony mineralization is normal without focal osteolytic orblastic lesions. ACjoint normal. No evidence of degenerative spurring or subchondral sclerosis. Nofracture or dislocation. Soft tissues are normal without soft tissuecalcification or foreign bodies. IMPRESSION:Normal plain films of the left shoulder.XR SHOULDER RIGHT 3VIEWS *OW* 2018-07-26 16:47:59Right shoulder, 3 viewsLocation Code: X1HQTRDTDQ HISTORY: Traumatic injuryCOMMENTS: AP views in internal and external rotation along with a transscapularY view of the right shoulder were obtained. There is no acute fracture ormalalignment. The soft tissues are unremarkable.IMPRESSION: No acute abnormality.CT ABDOMEN AND PELVIS W/O CONTRAST *OW*2018-07-20 17:16:50CT abdomen and pelvis without contrastLocation Code: A6JZESDFNW HISTORY: Lower abdominal painCOMPARISON: 07/18/2018, 07/04/2018Technique: Helical [...] *OW*2018-07-20 17:13:30Portable AP chest, 1 viewLocation Code: R2MHWSRMZY HISTORY: Chest painCOMPARISON: NoneCOMMENT: The lungs are [...] *OW*2018-07-16 18:59:05Exam: KUBHISTORY: Abdominal pain with constipationLocation: P4HTFEHBOQ:Bowel gas pattern is nonspecific without mechanical obstruction. No radiopaquestones are identified. No evidence of visceromegaly.IMPRESSION:1. Unremarkable exam.CT ABDOMEN AND PELVIS W/O CONTRAST *OW*2018-07-04 20:54:58CT OF THE ABDOMEN AND PELVIS WITHOUT CONTRASTLocation code:[id number] HISTORY: Fall, right flank injuryCOMPARISON: None available.TECHNIQUE: [...] facet arthropathy.XR ANKLE RIGHT COMPLETE 3 VIEWS * 2018-06-05 21:18:01Exam: Right ankle 3 views AP, lateral and oblique.Location: Z4PXUCYIQ: sp fallen r ankle painFINDINGS: No significant bone or joint abnormality is seen. The bonycortices are intact. The joint spaces are well preserved. The soft tissuesare normal.Impression:Unremarkable exam.XR KNEE RIGHT 3 VIEWS *OW*2018-06-05 21:16:48Exam: Left knee 3 views AP, lateral and obliqueLocation: R2Mikndqm: sp fallen r knee painFindings:Mild degenerative changes are present. No other bone or joint abnormality isseen. The bony cortices are intact. No joint effusion is seen. The soft tissuesare normal.Impression:Osteoarthritis.
[2021-09-30] MEDS ORDERED: ONDANSETRON 4 MG/2 ML VIAL ONE (18:08)
[2021-09-30] MEDS ORDERED: KCL 20 MEQ/100 mL IVPB 100 ML IV ONE (18:08)
[2021-09-30] MEDS ORDERED: NA CHLORIDE 0.9% 1,000 ML ONE (18:08)
[2021-09-30 18:14] LABS: Absolute Lymphocytes (CBC) 1.3 K/uL (0.7-4.9); Hematocrit 37.1 % (36.0-45.0); Lymphocytes % 22.3 % (15.3-44.8); MPV 9.3 fL (7.6-11.3)
[2021-09-30 19:14] LABS: Potassium 3.2 mmol/L (3.5-5.1)
[2021-09-30] MEDS ORDERED: POTASSIUM CL SA 10 MEQ TAB PO ONE (19:18)
[2021-09-30] MEDS ORDERED: POTASSIUM 25 MEQ EFFERV TAB ONE (19:23)
--- NOTE | 2021-09-30 21:39 | EDPHYS ---
Physician Documentation [facility] Name: Kelley Mead Age: 61 yrs Sex: Female : 1960 Arrival Date: 09/30/2021 Time: 16:46 Bed 2 Private MD: ED Physician Brandon Wilson HPI: 09/30 17:13 This 61 yrs old Female presents to ER via EMS with complaints of Abnormal rn case mgr Results. 17:13 Pt sent from [facility] for low potassium. Pt reports otherwise feels ok, no focal pain, rn has not been eating or drinking much because doesn't like the taste of the food offered. No fever. No vomiting or diarrhea. States has had low potassium before.. Onset: The symptoms/episode began/occurred at an unknown time. Severity of symptoms: At their worst the symptoms were mild in the emergency department the symptoms are unchanged. The patient has experienced similar episodes in the past. The patient has been recently seen by a physician:. Historical: - Allergies: 16:50 GABAPENTIN; bp - PMHx: 16:50 Anxiety; Depressive disorder; SCHIZOAFFECTIVE DISORDER; Bipolar disorder; bp - Immunization history:: Adult Immunizations up to date. - Social history:: Smoking status: Patient reports the use of cigarette tobacco products, unknown amount. - Family history:: not pertinent. - Hospitalizations: : No recent hospitalization is reported. ROS: 17:13 Constitutional: Negative for fever, chills, and weight loss, Eyes: Negative for injury, rn pain, redness, and discharge, Neck: Negative for injury, pain, and swelling, Cardiovascular: Negative for chest pain, palpitations, and edema, Respiratory: Negative for shortness of breath, cough, wheezing, and pleuritic chest pain, Abdomen/GI: Negative for abdominal pain, nausea, vomiting, diarrhea, and constipation, Back: Negative for injury and pain, MS/Extremity: Negative for injury and deformity, Skin: Negative for injury, rash, and discoloration, Neuro: Negative for headache, numbness, tingling, and seizure. Exam: 17:13 Constitutional: This is a well developed, well nourished patient who is awake, alert, rn and in no acute distress. Head/Face: Normocephalic, atraumatic. ENT: dry MM Cardiovascular: Regular rate and rhythm. No pulse deficits. Respiratory: No increased work of breathing, no retractions or nasal flaring. Abdomen/GI: Soft, non-tender Skin: Warm, dry MS/ Extremity: Pulses equal, no cyanosis. Neuro: Awake and alert, GCS 15 Vital Signs: 16:50 BP 120 / 89; Pulse 89; Resp 20; Temp 98; Pulse Ox 100% ; bp 18:33 BP 115 / 104; Pulse 79; Resp 18; Pulse Ox 100% on R/A; ph 20:30 BP 103 / 75; Pulse 70; Resp 15 S; Pulse Ox 100% on R/A; as6 22:00 BP 96 / 60; Pulse 62; Resp 11 S; Pulse Ox 100% on R/A; as6 23:56 Weight 72.57 kg; as6 10/01 00:00 BP 101 / 64; Pulse 63; Resp 18 S; Pulse Ox 100% on R/A; as6 MDM: 09/30 16:47 Patient medically screened. rn 18:59 ED course: Signed out to ERINN Kessler for f/u of labs, administration of potassium rn based on labs given to us by assisted and drawn today, and will reevaluate patient. Pt still without gross complaints. . 21:38 Data reviewed: vital signs, nurses notes, lab test result(s), EKG, and as a result, I cp will discharge patient. 21:38 Response to treatment: the patient's symptoms have markedly improved after treatment, cp and as a result, I will discharge patient. 09/30 16:47 Order name: CBC with Diff; Complete Time: 18:21 rn 09/30 21:36 Interpretation: Normal except: RBC 3.70; MCV 100.3; PLT 145. cp 09/30 16:47 Order name: Basic Metabolic Panel; Complete Time: 19:58 rn 09/30 21:36 Interpretation: Normal except: NA 129; K 3.2; CL 96; ANION GAP 15.2; BUN 20; CRE 1.34; cp GFR 45. 09/30 16:47 Order name: Magnesium; Complete Time: 19:58 rn 09/30 16:47 Order name: IV Start; Complete Time: 18:47 rn 09/30 16:47 Order name: Cardiac monitoring; Complete Time: 18:18 rn 09/30 16:48 Order name: EKG; Complete Time: 16:48 rn 09/30 16:48 Order name: EKG - Nurse/Tech; Complete Time: 18:18 rn 09/30 18:14 Order name: Labs - recollect needed: light green; Complete Time: 18:47 ss Administered Medications: 18:55 Drug: NS 0.9% 1000 ml Route: IV; Rate: 1000 ml; Site: left upper arm; bp 21:18 Follow up: Response: No adverse reaction; IV Status: Completed infusion; IV Intake: as6 1000ml 18:55 Drug: Potassium Chloride 20 mEq Route: IV; Rate: calculated rate; Site: left upper arm; bp 21:18 Follow up: Response: No adverse reaction; IV Status: Completed infusion; IV Intake: as6 100ml 18:56 Drug: Zofran (Ondansetron) 4 mg Route: IVP; Site: left upper arm; bp 10/01 02:04 Follow up: Response: No adverse reaction as6 09/30 19:19 Not Given (Other Intervention Used): Potassium Chloride 40 mEq PO once 5 19:19 Drug: Potassium Effervescent Tablet 50 mEq Route: PO; 5 10/01 01:39 Follow up: Response: No adverse reaction sm5 01:39 Drug: Ketorolac 15 mg Route: IVP; Site: left upper arm; 5 02:04 Follow up: Response: No adverse reaction as6 Disposition Summary: 09/30/21 21:38 Discharge Ordered Location: Home cp Problem: new cp Symptoms: have improved cp Condition: Stable cp Diagnosis - Hypokalemia cp Followup: cp - With: Emergency Department - When: As needed - Reason: Worsening of condition Discharge Instructions: - Discharge Summary Sheet cp - Potassium Content of Foods cp - Hypokalemia cp Forms: - Medication Reconciliation Form cp - Thank You Letter cp - Antibiotic Education cp - Prescription Opioid Use cp Addendum: 10/04/2021 00:25 Co-signature as Attending Physician, Brandon Wilson MD. r n Signatures: Dispatcher [employer] Vincent Montano MD MD cha Nieto, Roman, MD MD rn Smirch, Shelby, RN RN ss Page, Corey, PA PA cp Peltier, Brian, RN RN bp Mazur, Sarah, RN RN [facility] Wisam Gunderson RN as6
--- NOTE | 2021-09-30 21:39 | ER ---
Nurse's Notes [facility] Name: Kelley Mead Age: 61 yrs Sex: Female : 1960 Arrival Date: 09/30/2021 Time: 16:46 Bed 2 Private MD: Diagnosis: Hypokalemia Presentation: 09/30 16:50 Chief complaint: EMS states: LOW POTASSIUM ON ROUTINE LABS, CHRONIC H/O SAME. bp Coronavirus screen: At this time, the client does not indicate any symptoms associated with coronavirus-19. Ebola Screen: No symptoms or risks identified at this time. Initial Sepsis Screen: Does the patient meet any 2 criteria? No. Patient's initial sepsis screen is negative. Does the patient have a suspected source of infection? No. Patient's initial sepsis screen is negative. Risk Assessment: Do you want to hurt yourself or someone else? Patient reports no desire to harm self or others. Onset of symptoms is unknown. 16:50 Method Of Arrival: EMS: [facility] bp 16:50 Acuity: MARKEL 3 bp Triage Assessment: 16:50 General: Appears in no apparent distress. comfortable, Behavior is calm, cooperative, bp appropriate for age. Pain: Denies pain. EENT: No deficits noted. Neuro: Level of Consciousness is awake, alert, obeys commands, Oriented to Appropriate for age. Cardiovascular: No deficits noted. Respiratory: No deficits noted. GI: No signs and/or symptoms were reported involving the gastrointestinal system. : No signs and/or symptoms were reported regarding the genitourinary system. Derm: No deficits noted. Musculoskeletal: NON-AMBULATORY. Historical: - Allergies: 16:50 GABAPENTIN; bp - PMHx: 16:50 Anxiety; Depressive disorder; SCHIZOAFFECTIVE DISORDER; Bipolar disorder; bp - Immunization history:: Adult Immunizations up to date. - Social history:: Smoking status: Patient reports the use of cigarette tobacco products, unknown amount. - Family history:: not pertinent. - Hospitalizations: : No recent hospitalization is reported. Screenin:50 Abuse screen: Denies threats or abuse. Denies injuries from another. Nutritional bp screening: No deficits noted. Tuberculosis screening: No symptoms or risk factors identified. Fall Risk None identified. Assessment: 16:50 General: SEE TRIAGE NOTE. bp 19:25 General: Appears in no apparent distress. Behavior is cooperative. Pain: Denies pain. sm5 Neuro: Level of Consciousness is awake, alert, obeys commands, Oriented to person, place, time, situation. Cardiovascular: No deficits noted. Capillary refill < 3 seconds Patient's skin is warm and dry. Respiratory: No deficits noted. Airway is patent Trachea midline Respiratory effort is even, unlabored. 20:55 Reassessment: No changes from previously documented assessment. Patient and/or family sm5 updated on plan of care and expected duration. Pain level reassessed. 22:00 Reassessment: No changes from previously documented assessment. sm5 23:48 Reassessment: No changes from previously documented assessment. Patient is alert, sm5 oriented x 3, equal unlabored respirations, skin warm/dry/pink. 10/01 00:30 Reassessment: No changes from previously documented assessment. sm5 01:38 Reassessment: Patient and/or family updated on plan of care and expected duration. Pain sm5 level reassessed. Vital Signs: 09/30 16:50 BP 120 / 89; Pulse 89; Resp 20; Temp 98; Pulse Ox 100% ; bp 18:33 BP 115 / 104; Pulse 79; Resp 18; Pulse Ox 100% on R/A; ph 20:30 BP 103 / 75; Pulse 70; Resp 15 S; Pulse Ox 100% on R/A; as6 22:00 BP 96 / 60; Pulse 62; Resp 11 S; Pulse Ox 100% on R/A; as6 23:56 Weight 72.57 kg; as6 10/01 00:00 BP 101 / 64; Pulse 63; Resp 18 S; Pulse Ox 100% on R/A; as6 ED Course: 09/30 16:46 Patient arrived in ED. rn 16:46 Brandon Wilson MD is Attending Physician. rn 16:50 Arm band placed on. bp 16:50 Patient has correct armband on for positive identification. Bed in low position. Call bp light in reach. Side rails up X2. 17:09 Ole Lyles, RN is Primary Nurse. bp 17:11 Triage completed. bp 18:32 Missed attempt(s): 22 gauge in left antecubital area. Bleeding controlled, band aid ph applied, catheter tip intact. 18:46 Inserted saline lock: 24 gauge in left upper arm, using aseptic technique. Blood ss collected. 21:36 Vincent Lamb PA is PHCP. 10/01 02:03 No provider procedures requiring assistance completed. IV discontinued, intact, as6 bleeding controlled, No redness/swelling at site. Pressure dressing applied. Administered Medications: 09/30 18:55 Drug: NS 0.9% 1000 ml Route: IV; Rate: 1000 ml; Site: left upper arm; bp 21:18 Follow up: Response: No adverse reaction; IV Status: Completed infusion; IV Intake: as6 1000ml 18:55 Drug: Potassium Chloride 20 mEq Route: IV; Rate: calculated rate; Site: left upper arm; bp 21:18 Follow up: Response: No adverse reaction; IV Status: Completed infusion; IV Intake: as6 100ml 18:56 Drug: Zofran (Ondansetron) 4 mg Route: IVP; Site: left upper arm; bp 10/01 02:04 Follow up: Response: No adverse reaction as6 09/30 19:19 Not Given (Other Intervention Used): Potassium Chloride 40 mEq PO once sm5 19:19 Drug: Potassium Effervescent Tablet 50 mEq Route: PO; 5 10/01 01:39 Follow up: Response: No adverse reaction sm5 01:39 Drug: Ketorolac 15 mg Route: IVP; Site: left upper arm; 5 02:04 Follow up: Response: No adverse reaction as6 Medication: 09/30 16:50 VIS not applicable for this client. bp Intake: 21:18 IV: 1000ml; Total: 1000ml. as6 21:18 IV: 100ml; Total: 1100ml. as6 Outcome: 21:38 Discharge ordered by . 10/01 02:03 Discharged to home via ambulance. as6 Condition: stable Discharge instructions given to patient, Instructed on discharge instructions, follow up and referral plans. Demonstrated understanding of instructions, follow-up care. 02:09 Patient left the ED. as6 Signatures: Brandon Wislon MD MD rn Smirch, Shelby, RN RN Kelley Caro RN RN Vincent Lamb PA PA cp Ole Lyles RN RN bp Slawson, Ashby, RN RN as6 Carisa Horowitz RN RN 5
[2021-10-01] MEDS ORDERED: KETOROLAC 30 MG/ML INJ ONE (01:37)
[2021-10-01 02:16] VITALS: TEMP 98; O2SAT 100
[2021-10-01 02:23] VITALS: BP 101/64
--- NOTE | 2021-10-01 08:07 | EKG ---
Test Date: 2021-09-30 Test Time: 17:38:03 Educational Administrator: BP MEASUREMENT RESULTS: Intervals: Rate: 75 ND: 262 QRSD: 96 QT: 192 QTc: 214 Henry: P: 91 ND: 262 QRS: 60 T: 0 INTERPRETIVE STATEMENTS: Undetermined rhythm Low voltage QRS ST depression, consider subendocardial injury Nonspecific T wave abnormality Abnormal ECG Compared to ECG 04/11/2008 18:12:34 Low QRS voltage now present ST (T wave) deviation now present T-wave abnormality now present Sinus tachycardia no longer present Electronically Signed On 10-01-21 08:05:33 CDT by Jefferson Rosas
== END 2021-10-01 02:09 | disposition home or self-care (01) ==
LOC: ER 16:42
DX: E87.6 Hypokalemia (principal); F41.9 Anxiety disorder, unspecified; F32.A Depression, unspecified; F31.9 Bipolar disorder, unspecified; F25.9 Schizoaffective disorder, unspecified; F17.210 Nicotine dependence, cigarettes, uncomplicated
CPT/HCPCS: 93005; 85025; 80048; 36415; 83735; J3480; J7030; J2405; 96365; 96366; 96375; 99284

== ENCOUNTER 2021-10-28 08:09 | Emergency (ER) | payer OTHER ==
[2021-10-28] MEDS ORDERED: ETOMIDATE 20 MG/10 ML VIAL IV ONE (08:10)
[2021-10-28] MEDS ORDERED: ROCURONIUM 50 MG/5 ML VIAL IV ONE (08:10)
[2021-10-28 08:28] LABS: Arterial Blood Carboxyhemoglob 0.9 % (0-1.5); Blood Gas Oxyhemoglobin 95.6 % (94-97); Blood O2 Saturation 97.6 % (92-98.5)
[2021-10-28] MEDS ORDERED: NA CHLORIDE 0.9% 1,000 ML ONE ×3 (08:31→09:20)
[2021-10-28 08:42] LABS: Absolute Lymphocytes (CBC) 0.6 K/uL (0.7-4.9); Hematocrit 21.7 % (36.0-45.0); Lymphocytes % 11.5 % (15.3-44.8); MCV 97.5 fL (80-100); MPV 9.8 fL (7.6-11.3); RBC Red Blood Cell Count 2.22 M/uL (3.86-4.86)
[2021-10-28 08:48] LABS: Protime INR 1.2
[2021-10-28 08:57] LABS: Albumin 1.3 g/dL (3.4-5.0); Protein, Total 5.9 g/dL (6.4-8.2)
[2021-10-28 09:01] LABS: Potassium 2.8 mmol/L (3.5-5.1)
--- NOTE | 2021-10-28 09:09 | RAD REPORT ---
EXAM DESCRIPTION: [place] Single View10/28/2021 9:04 am CLINICAL HISTORY: Alteration consciousness COMPARISON: 2007 FINDINGS: Mild bilateral pulmonary opacities. The heart is borderline enlarged. IMPRESSION: Mild bilateral pulmonary opacities may represent mild interstitial pulmonary edema or pn eumonia
[2021-10-28] MEDS ORDERED: CEFTRIAXONE 1000 MG/VIAL ONE (09:20)
[2021-10-28] MEDS ORDERED: KCL 20 MEQ/100 mL IVPB 100 ML IV ONE (09:20)
[2021-10-28] MEDS ORDERED: NA CHLORIDE 0.9% 50 ML ONE (09:21)
[2021-10-28 09:47] LABS: Urine Bacteria >50 /HPF (<20); Urine RBC >50 /HPF (NONE SEEN)
[2021-10-28] MEDS ORDERED: RSI MEDICATION KIT IV ONE (09:57)
[2021-10-28] MEDS ORDERED: NOREPINEPHRINE 4mg/D5W 250mL 4 MG/250 ML BAG IV ONE ×2 (10:04→13:49)
--- NOTE | 2021-10-28 10:34 | ER ---
Nurse's Notes [facility] Name: Kelley Mead Age: 61 yrs Sex: Female : 1960 Arrival Date: 10/28/2021 Time: 08:10 Bed 4 Private MD: Diagnosis: Severe sepsis with septic shock;Pneumonia, unspecified organism;UTI/ Urinary tract infection, site not specified;GI Bleed/ Gastrointestinal hemorrhage, unspecified Presentation: 10/28 08:11 Chief complaint: EMS states: Called out to [facility] for unresponsive patient. EMS reports upon arrival, patient was awake and oriented to baseline. While attempting to obtain IV access in the ambulance, patient suddenly became unresponsive again. BP was initially reading 33/??. Upon arrival to ED, patient is awake, but lethargic. Coronavirus screen: Client denies travel out of the [place] in the last 14 days. Ebola Screen: Patient denies exposure to infectious person. Patient denies travel to an Ebola-affected area in the 21 days before illness onset. Initial Sepsis Screen: Does the patient meet any 2 criteria? No. Patient's initial sepsis screen is negative. Does the patient have a suspected source of infection? No. Patient's initial sepsis screen is negative. Risk Assessment: Do you want to hurt yourself or someone else? Patient reports no desire to harm self or others. Note BGL 171. Onset of symptoms was October 28, 2021. Care prior to arrival: IO inserted to L tibia. Transition of care: patient was received from another setting of care (long-term care facility), [facility]. 08:11 Method Of Arrival: EMS: [facility] 08:11 Acuity: MARKEL 2 ss Triage Assessment: 08:15 General: Appears ill, Behavior is drowsy, listless. Pain: Unable to use pain scale. ph Patient is disoriented. Neuro: Level of Consciousness is lethargic, listless, Oriented to person. Cardiovascular: Capillary refill is sluggish in bilateral fingers. Respiratory: Airway is patent Respiratory effort is shallow, Respiratory pattern is tachypnea Breath sounds are coarse bilaterally. GI: Abdomen is non-distended. : No signs and/or symptoms were reported regarding the genitourinary system. Derm: Skin is thin, with poor turgor Skin is dusky. Musculoskeletal: Circulation, motion, and sensation intact. Range of motion: intact in all extremities. Historical: - Allergies: 08:16 GABAPENTIN; ss - PMHx: 08:16 Anxiety; Bipolar disorder; depressive disorder; schizoaffective disorder; ss - Immunization history:: Adult Immunizations unknown. - Social history:: Smoking status: Patient reports the use of cigarette tobacco products, smokes one-half pack cigarettes per day. - Unable to obtain history due to: altered mental status. Screenin:07 Abuse screen: Denies threats or abuse. Denies injuries from another. Nutritional ph screening: No deficits noted. Tuberculosis screening: No symptoms or risk factors identified. Fall Risk None identified. Assessment: 09:10 General: See triage assessment. ph 09:53 Reassessment: Spo2 noted to have dropped to 75% on NRB mask, encourage pt to keep mask ph on her face and take deep breaths, SPo2 remians low, in 70s, DR Wilson notified, RT at bedside to prepare for intubation. 10:45 Reassessment: HR noted to have increased to 180's, ERP notified and verbal order ph received for IV pain medication and sedation. 11:00 Reassessment: No change to HR after IV medications, ERP aware and at bedside for ph cardioversion. 11:05 Reassessment: Cardioversion unsuccessful, adenosine administered w/ provider at bedside, cardiac rhythm changed, HR now 120. 12:00 Reassessment: Patient appears in no apparent distress at this time. Patient and/or ph family updated on plan of care and expected duration. Pain level reassessed. Pt remains intubated and sedated, VSS w/ levophed and propofol infusing. 14:25 Reassessment: Report given to Lianet VU at [facility]. ph 14:50 Reassessment: [facility] at bedside, report given to EMT-P, pt transferred to [facility]. Vital Signs: 08:11 BP 65 / 43; Pulse 101; Resp 21; Pulse Ox 100% on Non-rebreather mask; Weight 86.18 kg; ph 08:30 BP 87 / 56; Pulse 96; Resp 18; Pulse Ox 100% on Non-rebreather mask; ph 09:07 BP 87 / 63; Pulse 92; Resp 26; Temp 96.3(C); Pulse Ox 100% on Non-rebreather mask; ph 10:10 BP 123 / 79; Pulse 103; Resp 18; Temp 96.1; Pulse Ox 100% on ETT vent; ph 10:50 BP 60 / 32; Pulse 172; Resp 18; Pulse Ox 100% on ETT vent; ph 11:21 BP 98 / 71; Pulse 118; Resp 26 A; Temp 96.7(C); Pulse Ox 100% on ETT vent; jl7 11:47 BP 112 / 70; Pulse 116; Resp 18; Temp 96.8(C); Pulse Ox 100% on ETT vent; ph 12:15 BP 86 / 64; Pulse 119; Resp 16; Temp 97.2(C); Pulse Ox 100% on ETT vent; ph 12:45 BP 87 / 68; Pulse 119; Resp 16; Temp 97.8; Pulse Ox 100% on ETT vent; ph 13:15 BP 97 / 67; Pulse 123; Resp 16; Temp 98.4; Pulse Ox 100% on ETT vent; ph 13:45 BP 85 / 60; Pulse 124; Resp 16; Temp 99.0; Pulse Ox 100% on ETT vent; ph 14:15 BP 85 / 67; Pulse 124; Resp 16; Temp 99.4; Pulse Ox 100% on ETT vent; ph 14:45 BP 89 / 69; Pulse 114; Resp 16; Temp 99.3; Pulse Ox 100% on ETT vent; ph 15:15 BP 104 / 69; Pulse 118; Resp 16; Temp 99.3(C); Pulse Ox 100% on ETT vent; ph ED Course: 08:10 Patient arrived in ED. ss 08:10 Brandon Wilson MD is Attending Physician. rn 08:16 Triage completed. ss 08:16 EKG done, by ED staff, reviewed by Brandon Wilson MD. mb4 08:16 Arm band placed on right wrist. ss 08:30 Kelley Caro, MIRELLA is Primary Nurse. ph 08:30 Initial lab(s) drawn, by mn, sent to lab. Inserted saline lock: 22 gauge in left ph antecubital area, using aseptic technique. Blood collected. 08:30 Assisted provider with central line placement. Set up central line tray. Triple lumen ph line placed in right femoral. Line placed by Brandno Wilson MD Placement verified by CXR, blood return, Dressed with Tape, Tegaderm, Blood was collected. Patient tolerated well. Before procedure, did Practitioner(s) obtain informed consent? Yes. Patient \T\ family education about procedure, CLABSI prevention and S/S of infection? Yes. Time-out/Briefing performed prior to start of procedure? Yes. Was handwashing/sanitizing done immediately prior to procedure? Yes. Was patient positioned to in a way to prevent air embolism? Yes. Was procedure site sterilized? Yes, with chlorhexidine. Was the site allowed to dry? Yes. Was local anesthetic and/or sedation utilized? Yes. During the procedure, did the Practitioner(s) maintain a sterile field? Yes. Were unused ports clamped during insertion? Yes. Was a 2nd qualified MD obtained after 3 unsuccessful insertion attempts? N/A. Was blood aspirated from each lumen? Yes. After the procedure, did the Practitioner(s) clean the site and apply a sterile dressing? Yes. 09:00 Tsai cath inserted, using sterile technique, 16 Fr., by me, balloon inflated, to ph gravity drainage, returned cloudy urine. Patient tolerated poorly. 09:05 Chest Single View XRAY In Process Unspecified. EDMS 09:07 Patient has correct armband on for positive identification. Placed in gown. Bed in low ph position. Call light in reach. Side rails up X 1. Client placed on continuous cardiac and pulse oximetry monitoring. NIBP monitoring applied. 10:00 Assisted provider with intubation using 7.5 mm ETT via oral route. ET tube secured at ph 23cm at the teeth. Set up intubation tray. Intubated by Brandon Wilson MD Placement verified by CO2 detector w/ + color change, auscultating bilateral breath sounds, Patient tolerated well. 10:05 NGT: inserted 16 Fr. other via oral route verified placement of air over stomach, ph verified return of gastric contents, Placement verified by X-ray, to intermittent suction. Returned gastric contents. 10:32 Jose Luis Wilson is Hospitalizing Provider. rn 10:59 XRAY Chest (1 view) In Process Unspecified. EDMS 11:02 Assist provider with cardioversion (synchronized) for treatment of SVT with 200 joules jl7 Set up for procedure. Performed by Brandon Wilson MD Monitored with monitoring and evaluation advisor, pulse ox, Post procedure rhythm is unchanged. Patient tolerated intubated and sedated. 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 jl7 11:48 Patient transferred, IV remains in place. ph 14:00 12PM CONTACTED [facility], DR PO CORDOVA 1205PM , 1240 PM admin approval toshia martinez ,transfer center . Administered Medications: 08:30 Drug: NS 0.9% 1000 ml Route: IV; Rate: 1000 ml; Site: left antecubital; ph 09:25 Follow up: Response: No adverse reaction; IV Status: Completed infusion; IV Intake: ph 1000ml 09:02 Drug: NS 0.9% 1000 ml Route: IV; Rate: 1 bolus; Site: right femoral; ph 10:00 Follow up: Response: No adverse reaction; IV Status: Completed infusion; IV Intake: ph 1000ml 09:25 Drug: NS 0.9% (30 ml/kg) 30 ml/kg Route: IV; Rate: bolus; Site: right femoral; ph 10:15 Follow up: Response: No adverse reaction; IV Status: Completed infusion; IV Intake: ph 600ml 09:25 Drug: Potassium Chloride 20 mEq Route: IV; Rate: calculated rate; Site: right femoral; ph 12:30 Follow up: Response: No adverse reaction; IV Status: Completed infusion ph 09:50 Drug: Rocephin (cefTRIAXone) 1 grams Route: IV; Rate: calculated rate; Site: right ph femoral; 10:20 Follow up: Response: No adverse reaction; IV Status: Completed infusion ph 09:58 Drug: Etomidate 20 mg Route: IVP; Site: right femoral; ph 10:00 Follow up: Response: No adverse reaction; Patient is sedated ph 09:59 Drug: Succinylcholine 100 mg Route: IVP; Site: right femoral; ph 13:33 Follow up: Response: No adverse reaction; RASS: Light sedation (-2) ph 10:01 Drug: Levophed (norepinephrine) 0.1 mcg/kg/min Route: IV; Rate: calculated rate; Site: ph right femoral; 10:39 Follow up: Rate change 15 mcg/min ph 11:30 Follow up: Response: No adverse reaction; Rate change 20 mcg/min ph 12:10 Follow up: Rate change 25 mcg/min ph 15:15 Follow up: Response: No adverse reaction; Blood pressure is elevated; IV Status: ph Infusion continued upon transfer 10:52 Drug: fentaNYL (PF) 100 mcg Route: IVP; Site: right femoral; ph 11:15 Follow up: Response: No adverse reaction; RASS: Light sedation (-2) ph 10:53 Drug: Midazolam 1 mg Route: IVP; Site: right femoral; ph 11:15 Follow up: Response: No adverse reaction; RASS: Light sedation (-2) ph 10:55 Drug: Propofol 5 mcg/kg/min Route: IV; Rate: calculated rate; Site: right femoral; ph 11:30 Follow up: Rate change 10 mcg/kg/min ph 12:30 Follow up: Rate change 15 mcg/kg/min ph 13:45 Follow up: Response: RASS: Light sedation (-2); Rate change 17 mcg/kg/min ph 15:15 Follow up: Response: No adverse reaction; Patient is sedated; RASS: Light sedation ph (-2); IV Status: Infusion continued upon transfer 11:03 Drug: Magnesium Sulfate 1 grams Route: IVPB; Infused Over: 1 hrs; Site: left antecubital; 12:05 Follow up: Response: No adverse reaction; IV Status: Completed infusion; IV Intake: ph 100ml 11:06 Drug: Adenocard (adenosine) 12 mg Route: IVP; Site: right femoral; jl7 11:20 Follow up: Response: No adverse reaction; Cardiac rhythm changed ph 11:50 Drug: Zithromax (azithromycin) 500 mg Route: IVPB; Infused Over: 1 hrs; Site: right femoral; 12:50 Follow up: Response: No adverse reaction; IV Status: Completed infusion ph 12:25 Drug: ProTONIX (pantoprazole) 40 mg Route: IVP; Site: left antecubital; ph 13:00 Follow up: Response: No adverse reaction ph 13:30 Drug: ProTONIX (pantoprazole) 8 mg/hr Route: IV; Rate: 25 ml/hr; Site: left antecubital;ph 15:00 Follow up: Response: No adverse reaction; IV Status: Infusion continued upon transfer ph Medication: 09:08 VIS not applicable for this client. ph 13:40 Blood products: PRBCs X 1 unit given. ph Intake: 09:25 IV: 1000ml; Total: 1000ml. ph 10:00 IV: 1000ml; Total: 2000ml. ph 10:15 IV: 600ml; Total: 2600ml. ph 12:05 IV: 100ml; Total: 2700ml. ph Outcome: 10:33 Decision to Hospitalize by Provider. rn 11:34 ER care complete, transfer ordered by . rn 15:15 Transferred by ground EMS [facility]. to [facility], Note: ph Vintage 15:15 Condition: stable 15:15 Instructed on the need for transfer. 15:16 Patient left the ED. [email or web address] Signatures: Dispatcher [employer] EDMS Brandon Wilson MD MD rn Smirch, Shelby RN RN ss Kelley Caro RN RN Jessica Durant RN RN jlLigia [email or web address] Manjula Auguste kj1 Corrections: (The following items were deleted from the chart) 11:43 10:45 Reassessment: HR noted to have increased to 180's, ERP notified and verbal order ph received for IV pain medication and sedation, medications administered w/ no change to HR ph
--- NOTE | 2021-10-28 10:34 | EDPHYS ---
Physician Documentation [facility] Name: Kelley Mead Age: 61 yrs Sex: Female : 1960 Arrival Date: 10/28/2021 Time: 08:10 Bed 4 Private MD: ED Physician Brandon Wilson HPI: 10/28 08:38 This 61 yrs old Female presents to ER via EMS with complaints of Unresponsive. rn 08:38 The patient presents with confusion, decreased responsiveness. Onset: The rn symptoms/episode began/occurred at an unknown time. Possible causes: unknown. Current symptoms: In the emergency department the patient's symptoms have improved. It is unknown whether or not the patient has had similar symptoms in the past. It is unknown whether or not the patient has recently seen a physician. Per EMS, patient found this morning minimally responsive, unknown cause, unknown if COVID, no known trauma. EMS reports more alert now, glucose normal. Patient speaks but seems confused.. Historical: - Allergies: 08:16 GABAPENTIN; ss - PMHx: 08:16 Anxiety; Bipolar disorder; depressive disorder; schizoaffective disorder; ss - Immunization history:: Adult Immunizations unknown. - Social history:: Smoking status: Patient reports the use of cigarette tobacco products, smokes one-half pack cigarettes per day. - Unable to obtain history due to: altered mental status. ROS: 08:38 Unable to obtain ROS due to altered mental status. rn Exam: 08:38 Constitutional: This is a well developed patient, somnolent, answers some questions rn Head/Face: Normocephalic, atraumatic. Eyes: Pupils constricted, but equal ENT: dry MM Neck: Trachea midline, no masses palpated, and no cervical lymphadenopathy. Supple, full range of motion without nuchal rigidity, or vertebral point tenderness. No Meningismus. Cardiovascular: Regular rate and rhythm. No pulse deficits. Respiratory: Mild tachypnea, no retractions Abdomen/GI: Soft, non-tender Skin: Warm, dry MS/ Extremity: Weak peripheral pulses, no cyanosis Neuro: Somnolent, awakens to voice, answers some questions, clear speech 09:31 ECG was reviewed by the Attending Physician. rn Vital Signs: 08:11 BP 65 / 43; Pulse 101; Resp 21; Pulse Ox 100% on Non-rebreather mask; Weight 86.18 kg; ph 08:30 BP 87 / 56; Pulse 96; Resp 18; Pulse Ox 100% on Non-rebreather mask; ph 09:07 BP 87 / 63; Pulse 92; Resp 26; Temp 96.3(C); Pulse Ox 100% on Non-rebreather mask; ph 10:10 BP 123 / 79; Pulse 103; Resp 18; Temp 96.1; Pulse Ox 100% on ETT vent; ph 10:50 BP 60 / 32; Pulse 172; Resp 18; Pulse Ox 100% on ETT vent; ph 11:21 BP 98 / 71; Pulse 118; Resp 26 A; Temp 96.7(C); Pulse Ox 100% on ETT vent; jl7 11:47 BP 112 / 70; Pulse 116; Resp 18; Temp 96.8(C); Pulse Ox 100% on ETT vent; ph 12:15 BP 86 / 64; Pulse 119; Resp 16; Temp 97.2(C); Pulse Ox 100% on ETT vent; ph 12:45 BP 87 / 68; Pulse 119; Resp 16; Temp 97.8; Pulse Ox 100% on ETT vent; ph 13:15 BP 97 / 67; Pulse 123; Resp 16; Temp 98.4; Pulse Ox 100% on ETT vent; ph 13:45 BP 85 / 60; Pulse 124; Resp 16; Temp 99.0; Pulse Ox 100% on ETT vent; ph 14:15 BP 85 / 67; Pulse 124; Resp 16; Temp 99.4; Pulse Ox 100% on ETT vent; ph 14:45 BP 89 / 69; Pulse 114; Resp 16; Temp 99.3; Pulse Ox 100% on ETT vent; ph 15:15 BP 104 / 69; Pulse 118; Resp 16; Temp 99.3(C); Pulse Ox 100% on ETT vent; ph Procedures: 08:35 Central Line: the site was prepped with Betadine, in sterile fashion, a triple lumen rn catheter was inserted, in the right in 2 attempts. placement was verified, by blood return, the site was dressed with Tegaderm, using sterile technique, the patient tolerated the procedure, well. 10:01 Intubation: Ventilated with 100% NRB prior to procedure. O2 saturation prior to corn husk baler was 70 %. Intubated orally using # 4 Wilner blade with 7.0 mm ETT. was successful on first attempt. Ventilated with Ambu bag. Tube secured with ETT smith at right side of mouth measured 23 cm at teeth. Placement verified by CO2 detector with (+) color change, auscultating bilateral breath sounds, O2 saturation after procedure was 86 %. Patient tolerated well. MDM: 08:10 Patient medically screened. rn 09:14 ED course: Pt much better, able to have full conversation, not enough urine to test rn yet, CXR shows possible pneumonia. . 10:03 ED course: Pt still awake and speaking, but blood pressure dropped and O2 sat dropped rn to 70s on non-rebreather, decision made to intubate and start levophed.. 10:28 Differential Diagnosis: pneumonia, sepsis, UTI, volume depletion. Data reviewed: vital rn signs, nurses notes, lab test result(s), radiologic studies, plain films, and as a result, I will admit patient. Counseling: I had a detailed discussion with the patient and/or guardian regarding: the historical points, exam findings, and any diagnostic results supporting the discharge/admit diagnosis, lab results, radiology results, the need for further work-up and treatment in the hospital. Response to treatment: the patient's symptoms have mildly improved after treatment, and as a result, I will admit patient. Admission orders: after a detailed discussion of the patient's condition and case, the admit orders are written by me. ED course: Pt with severe sepsis and septic shock, A: source is pneumonia and UTI; B: SIRS criteria hypothermia < 96.8, WBC > 29933, and acute change in mental status, RR> 20; C: lactate > 2, SBP < 90, Creatinine> 2. Lactate 8 and persistent hypotension qualify for septic shock. 30cc/kg fluids ordered, sepsis reevaluation complete. Abx ordered and given after cultures. . 11:14 ED course: Pt with episode of SVT and st elevation/depression on ECG, possibly rate rn related since wasn't present before, cardioversion attempted at 200J, single time, not effective, adenosine 12mg given with return to sinus rhythm and resolution of ST changes. Hemoccult performed, trace positive, NG tube returning dark substance, not grossly bloody.. 11:35 ED course: Gastric contents + for blood using hemoccult. ED course: NO GI here, will rn have to transfer.. 12:33 ED course: Accepted for transfer to [facility], ICU, requested 1 unit PRBC rn be given. . 10/28 08:12 Order name: Blood Culture Adult (2) rn 10/28 08:12 Order name: CBC with Diff; Complete Time: 08:59 rn 10/28 08:12 Order name: CMP; Complete Time: 09:02 rn 10/28 08:12 Order name: Lactate; Complete Time: 09:02 rn 10/28 08:12 Order name: Protime (+inr); Complete Time: 08:59 rn 10/28 08:12 Order name: Ptt, Activated; Complete Time: 08:59 rn 10/28 08:12 Order name: Urine Culture rn 10/28 08:12 Order name: Urine Microscopic Only; Complete Time: 10:28 rn 10/28 08:12 Order name: ABG; Complete Time: 08:59 rn 10/28 08:12 Order name: SARS-COV-2 RT PCR (Document "Date of Onset" if Symptomatic); Complete Time: rn 10:42 10/28 11:47 Order name: Type And Screen rn 10/28 12:12 Order name: Bb Add On [email or web address] 10/28 12:13 Order name: Packed RBC Leukored EDRI 10/28 12:44 Order name: ABO/RH no charge EDRI 10/28 08:12 Order name: Chest Single View XRAY; Complete Time: 09:14 rn 10/28 10:02 Order name: XRAY Chest (1 view); Complete Time: 11:14 rn 10/28 12:53 Order name: ABG Arterial Blood Gas EDRI 10/28 13:13 Order name: Lactate Sepsis 2 HR Follow-up EDRI 10/28 08:12 Order name: Accucheck; Complete Time: 08:30 rn 10/28 08:12 Order name: Cardiac monitoring; Complete Time: 08:30 rn 10/28 08:12 Order name: Cath; Complete Time: 08:47 rn 10/28 08:12 Order name: EKG - Nurse/Tech; Complete Time: 08:30 rn 10/28 08:12 Order name: IV Saline Lock - Large Bore; Complete Time: 08:31 rn 10/28 08:12 Order name: Labs collected and sent; Complete Time: 08:30 rn 10/28 08:12 Order name: O2 Per Protocol; Complete Time: 08:30 rn 10/28 08:12 Order name: O2 Sat Monitoring; Complete Time: 08:30 rn 10/28 08:12 Order name: Urine Dipstick-Ancillary (obtain specimen); Complete Time: 08:47 rn EC:31 Rate is 97 beats/min. Rhythm is regular. QRS [place] is Normal. [place] interval is normal. QRS rn interval is normal. QT interval is normal. No Q waves. T waves are Flattened. No ST changes noted. Clinical impression: NSR w/ Non-specific ST/T Changes. Interpreted by me. Reviewed by me. Administered Medications: 08:30 Drug: NS 0.9% 1000 ml Route: IV; Rate: 1000 ml; Site: left antecubital; ph 09:25 Follow up: Response: No adverse reaction; IV Status: Completed infusion; IV Intake: ph 1000ml 09:02 Drug: NS 0.9% 1000 ml Route: IV; Rate: 1 bolus; Site: right femoral; ph 10:00 Follow up: Response: No adverse reaction; IV Status: Completed infusion; IV Intake: ph 1000ml 09:25 Drug: NS 0.9% (30 ml/kg) 30 ml/kg Route: IV; Rate: bolus; Site: right femoral; ph 10:15 Follow up: Response: No adverse reaction; IV Status: Completed infusion; IV Intake: ph 600ml 09:25 Drug: Potassium Chloride 20 mEq Route: IV; Rate: calculated rate; Site: right femoral; ph 12:30 Follow up: Response: No adverse reaction; IV Status: Completed infusion ph 09:50 Drug: Rocephin (cefTRIAXone) 1 grams Route: IV; Rate: calculated rate; Site: right ph femoral; 10:20 Follow up: Response: No adverse reaction; IV Status: Completed infusion ph 09:58 Drug: Etomidate 20 mg Route: IVP; Site: right femoral; ph 10:00 Follow up: Response: No adverse reaction; Patient is sedated ph 09:59 Drug: Succinylcholine 100 mg Route: IVP; Site: right femoral; ph 13:33 Follow up: Response: No adverse reaction; RASS: Light sedation (-2) ph 10:01 Drug: Levophed (norepinephrine) 0.1 mcg/kg/min Route: IV; Rate: calculated rate; Site: ph right femoral; 10:39 Follow up: Rate change 15 mcg/min ph 11:30 Follow up: Response: No adverse reaction; Rate change 20 mcg/min ph 12:10 Follow up: Rate change 25 mcg/min ph 15:15 Follow up: Response: No adverse reaction; Blood pressure is elevated; IV Status: ph Infusion continued upon transfer 10:52 Drug: fentaNYL (PF) 100 mcg Route: IVP; Site: right femoral; ph 11:15 Follow up: Response: No adverse reaction; RASS: Light sedation (-2) ph 10:53 Drug: Midazolam 1 mg Route: IVP; Site: right femoral; ph 11:15 Follow up: Response: No adverse reaction; RASS: Light sedation (-2) ph 10:55 Drug: Propofol 5 mcg/kg/min Route: IV; Rate: calculated rate; Site: right femoral; ph 11:30 Follow up: Rate change 10 mcg/kg/min ph 12:30 Follow up: Rate change 15 mcg/kg/min ph 13:45 Follow up: Response: RASS: Light sedation (-2); Rate change 17 mcg/kg/min ph 15:15 Follow up: Response: No adverse reaction; Patient is sedated; RASS: Light sedation ph (-2); IV Status: Infusion continued upon transfer 11:03 Drug: Magnesium Sulfate 1 grams Route: IVPB; Infused Over: 1 hrs; Site: left ph antecubital; 12:05 Follow up: Response: No adverse reaction; IV Status: Completed infusion; IV Intake: ph 100ml 11:06 Drug: Adenocard (adenosine) 12 mg Route: IVP; Site: right femoral; jl7 11:20 Follow up: Response: No adverse reaction; Cardiac rhythm changed ph 11:50 Drug: Zithromax (azithromycin) 500 mg Route: IVPB; Infused Over: 1 hrs; Site: right ph femoral; 12:50 Follow up: Response: No adverse reaction; IV Status: Completed infusion ph 12:25 Drug: ProTONIX (pantoprazole) 40 mg Route: IVP; Site: left antecubital; ph 13:00 Follow up: Response: No adverse reaction ph 13:30 Drug: ProTONIX (pantoprazole) 8 mg/hr Route: IV; Rate: 25 ml/hr; Site: left antecubital;ph 15:00 Follow up: Response: No adverse reaction; IV Status: Infusion continued upon transfer ph Disposition: 10:43 Critical Care:. rn Disposition Summary: 10/28/21 11:34 Transfer Ordered Transfer Location: [facility] rn Reason: Higher level of care rn Condition: Stable(10/28/21 11:34) rn Problem: new(10/28/21 11:34) rn Symptoms: have improved(10/28/21 11:34) rn Accepting Physician: (10/28/21 15:16) [email or web address] Diagnosis - Severe sepsis with septic shock(10/28/21 11:34) rn - Pneumonia, unspecified organism(10/28/21 11:34) rn - UTI/ Urinary tract infection, site not specified(10/28/21 11:34) rn - GI Bleed/ Gastrointestinal hemorrhage, unspecified rn Forms: - Medication Reconciliation Form rn - SBAR form yarn spooler time excluding procedures: 10:43 Critical care time: Bedside Care: 35 minutes. Total time: 35 minutes rn Signatures: Dispatcher [employer] EDMS Brandon Wilson MD MD rn Smirch, Shelby, RN RN Kelley Tesfaye, RN RN Jessica Durant, RN RN Manjula Fofana Corrections: (The following items were deleted from the chart) 11:33 10:33 Inpatient Admission rn rn 11:33 10:33 Jose Luis Wilson rn rn 11:33 10:33 Intensive Care Unit rn rn 11:33 10:33 Fair rn rn 11:33 10:33 new rn rn 11:33 10:33 have improved rn rn 11:33 10:33 Standard rn rn 11:33 10:33 rn rn 11:33 10:33 Severe sepsis with septic shock rn rn 11:33 10:33 UTI/ Urinary tract infection, site not specified rn rn 11:33 10:33 Pneumonia, unspecified organism rn rn 11:33 10:33 Altered mental status, unspecified rn rn 11:33 10:33 Hypokalemia rn rn 15:16 11:34 Dr. terry [email or web address] 15:16 15:16 Dr. ramires [email or web address]
[2021-10-28] MEDS ORDERED: MIDAZOLAM HCL 2 MG/2 ML INJ ONE (10:53)
[2021-10-28] MEDS ORDERED: propofoL 1,000 MG/100 ML VIAL IV ONE (10:54)
[2021-10-28] MEDS ORDERED: FENTANYL CITR 100 MCG/2 ML ONE (10:54)
--- NOTE | 2021-10-28 11:12 | RAD REPORT ---
EXAM DESCRIPTION: [place] Single View10/28/2021 10:57 am CLINICAL HISTORY: Device placement endotracheal tube placement IMPRESSION: An endotracheal tube has been inserted with its tip at the billy. It should be retracte d 3 centimeters. Nasogastric tube within stomach
[2021-10-28] MEDS ORDERED: MAGNESIUM SULFATE 1 gm IVPB 1 GM/100 ML BAG IV ONE (11:14)
[2021-10-28] MEDS ORDERED: ADENOSINE 6 MG/ 2ML VIAL IV ONE (11:14)
[2021-10-28] MEDS ORDERED: PANTOPRAZOLE 40 MG INJ ONE (12:17)
[2021-10-28 12:53] LABS: Arterial Blood Carboxyhemoglob 0.2 % (0-1.5); Blood Gas Oxyhemoglobin 97.4 % (94-97)
[2021-10-28] MEDS ORDERED: PANTOPRAZOLE INJ 80 MG in NA CHLORIDE 0.9% 250 ML IV SCH (13:00)
[2021-10-28] MEDS ORDERED: NA CHLORIDE 0.9% 250 ML ONE (13:04)
[2021-10-28 16:08] VITALS: O2SAT 100
[2021-10-28 16:19] VITALS: BP 112/70; TEMP 96.8
--- NOTE | 2021-10-29 07:51 | EKG ---
Test Date: 2021-10-28 Test Time: 11:15:41 [employer] Certified Network Associate: TP MEASUREMENT RESULTS: Intervals: Rate: 120 [place]: 206 QRSD: 88 QT: 322 QTc: 455 [place]: P: 64 [place]: 206 QRS: 77 T: 160 INTERPRETIVE STATEMENTS: Sinus tachycardia with occasional premature ventricular complexes ST & T wave abnormality, consider anterolateral ischemia Abnormal ECG Compared to ECG 10/28/2021 11:08:10 Ventricular premature complex(es) now present Possible ischemia now present Myocardial infarct finding no longer present Myocardial infarct finding no longer present ST (T wave) deviation still present Electronically Signed On 10-29-21 07:48:32 CDT by Jefferson Rosas
--- NOTE | 2021-10-29 07:52 | EKG ---
Test Date: 2021-10-28 Test Time: 11:08:10 Procurement Intern: ALETHA MEASUREMENT RESULTS: Intervals: Rate: 177 AL: 126 QRSD: 90 QT: 244 QTc: 418 [place]: P: 25 AL: 126 QRS: 89 T: 150 INTERPRETIVE STATEMENTS: Sinus tachycardia ST elevation, consider inferior injury or acute infarct ACUTE IN Consider right ventricular involvement in acute inferior infarct Abnormal ECG Compared to ECG 09/30/2021 17:38:03 Myocardial infarct finding now present Myocardial infarct finding now present T-wave abnormality no longer present ST (T wave) deviation still present Electronically Signed On 10-29-21 07:48:33 CDT by Jefferson Rosas
--- OUTSIDE RECORDS SUMMARY | 2021-11-06 01:24 | XMS REPORT | Continuity of Care Document ---
:1960 Author Organization [facility] t Address [address] [place] [address] Care Team Providers Name Role Phone BACCAM Primary Care Physician Unavailable DR SEDA Attending Clinician Unavailable [id number] Attending Clinician Unavailable [id number] Attending Clinician Unavailable JOÃO WEST Attending Clinician Unavailable RJ BAUM Attending Clinician Unavailable DR Anastasia PURVIS Attending Clinician Unavailable Ahmed, X Attending Clinician Unavailable Anastasia Nino Attending Clinician [...] Clinician Unavailable DR SEDA Admitting Clinician Unavailable JOÃO WEST Admitting Clinician Unavailable DR Anastasia PURVIS Admitting Clinician Unavailable Ahmed, X Admitting Clinician Unavailable Physician, Primary or Family Admitting Clinician Unavailyusef STEEL DR Admitting Clinician Unavailable Penniemed, R Admitting Clinician Unavailable DR NASREEN Admitting [...] Type Policy Number Effective Date Expiration Date S geovanni MEDICARE - OP [id number] MEDICARE - OP [id number] MEDICARE - OP [id number] MEDICARE A B [id number] 2003 00:00:00 GENERIC MEDICAID [id number] 2021 HMO 00:00:00 MEDICAID [facility] [id number] 2021 00:00:00 0500 [id number] 2021 00:00:00 0762 [id number] 2021 00:00:00 0700 [id number] 2015 00:00:00 [place]ICARE [place]: [id number] 2003 [facility] 00:00:00 [facility] [id number] 2016 [facility] 00:00:00 PLUS - HALFWAY CARE Problems Condition Condition Condition Status Onset Resolution Last Treating Co mments Source Name Details Category Date Date Treatment Clinician Date Bipolar II Bipolar II Problem Active M [facility] disorder Disorder 09-17 da 00:00: [facility] Allergies, Adverse Reactions, Alerts Allergy Allergy Status Severity Reaction(s) Onset Inactive Treating Comm ents Source Name Type Date Date Clinician GABAPENT Allergy Active [facility] [place] [facility] [facility] 00:00: Medical 00 Center aspirin DA Active U UNKNOWN [facility] 04[facility]27 [facility] 00:[facility]: [facility] 00 [facility] st GABAPENT DA Active SEVERE rash [place] [facility] ASPIRIN DA Active SEVERE rash [facility] No Known MA Active UNKNOWN [place] [facility] Gabapent DA Active Unknown [facility] IV Dye, DA Active Unknown [facility] Aspirin DA Active Unknown [facility] Social History Smoking Status Start Date Stop Date Source Heavy Tobacco Smoker [facility] Medications Ordered Filled Start [...] 0.25 mg da tablet tablet tablet [facility] alprazolam alprazolam No alprazolam [place] 0.5 mg 0.5 mg 0.5 mg da tablet tablet tablet [facility] amoxicillin amoxicillin No amoxicilli [place] 500 mg 500 mg n 500 mg da capsule capsule capsule [facility] bromphenira bromphenira No [...] mg tablet mg tablet mg tablet [facility] Chantix 1 Chantix 1 No Chantix 1 [place] mg tablet mg tablet mg tablet da [facility] ciprofloxac ciprofloxac No ciprofloxa [place] in 500 mg in 500 mg jenna 500 mg da tablet tablet tablet [facility] citalopram citalopram No citalopram [place] 20 mg 20 mg 20 mg da tablet tablet tablet [facility] clotrimazol clotrimazol No clotrimazo [place] e 1 % e 1 % le 1 % da topical topical topical [facility] cream cream cream [facility] Constulose Constulose No Constulose [place] 10 gram/15 10 gram/15 10 gram/15 da mL oral mL oral mL oral [facility] solution solution solution [facility] cyclobenzap cyclobenzap No cyclobenza [place] rine 10 mg rine 10 mg yenny 10 da tablet tablet mg tablet [facility] doxycycline doxycycline No doxycyclin [place] hyclate 100 hyclate 100 e hyclate da mg tablet mg tablet 100 mg Epi scop tablet [facility] doxycycline doxycycline No doxycyclin [place] monohydrate monohydrate e d a 100 mg 100 mg monohydrat [facility] op capsule capsule e 100 mg al capsule Health [facility] Program doxycycline doxycycline No doxycyclin [place] monohydrate monohydrate e d a 100 mg 100 mg monohydrat [facility] op tablet tablet e 100 mg al tablet [facility] Program fenoprofen fenoprofen No fenoprofen [place] 600 mg 600 mg 600 mg da tablet tablet tablet [facility] furosemide furosemide No furosemide [place] 20 mg 20 mg 20 mg da tablet tablet tablet [facility] gentamicin gentamicin No gentamicin [place] 0.1 % 0.1 % 0.1 % da topical topical topical [facility] ointment ointment ointment [facility] griseofulvi griseofulvi No griseofulv [place] [...] 0.5 mg da tablet tablet tablet [facility] sulfamethox sulfamethox No sulfametho [place] azole 800 azole 800 xazole 800 da mg-trimetho mg-trimetho mg-trimeth [facility] prim 160 mg prim 160 mg oprim 160 al tablet tablet mg tablet [facility] tramadol 50 tramadol 50 No tramadol [place] mg tablet mg tablet 50 mg da tablet [facility] Ventolin Ventolin No Ventolin [place] HFA 90 HFA 90 HFA 90 da mcg/actuati mcg/actuati mcg/actuat [facility] aerosol on aerosol ion al inhaler inhaler aerosol Health inhaler Outre[facility] Vital Signs Vital Name Observation Time Observation Value Comments Source WEIGHT 2021-11-02 06:00:00 93.895 kg HEIGHT 2021-10-28 19:00:00 157.5 cm WEIGHT 2021-10-28 19:00:00 86.18 kg WEIGHT 2021-11-02 06:00:00 93.895 kg HEIGHT 2021-10-28 19:00:00 157.5 cm WEIGHT 2021-10-28 19:00:00 86.18 kg Height 2021-07-21 00:32:00 154.94 CM Weight 2021-07-21 [...] Procedure Date / Time Performed Performing Clinician [facility] shar [id number] 2021-05-30 00:00:00 CHAKR.05 [facility] [id number] 2021-05-30 00:00:00 CHAKR.05 [facility] [id number] 2021-05-30 00:00:00 CHAKR.05 [facility] [id number] 2021-05-30 00:00:00 CHAKR.05 [facility] [id number] 2021-05-30 00:00:00 CHAKR.05 [facility] [id number] 2021-05-30 00:00:00 CHAKR.05 [facility] [id number] 2021-05-30 00:00:00 AHMUM [facility] [id number] 2021-04-27 00:00:00 [facility] Encounters Start End Encounter Admission Attending Care Care Encounter Source Date/Time Date/Time Type Type Clinicians Facility Department ID 2021-08-13 Outpatient VERA STACK ELCAMPO ELC[facility]PO [id number] El 08:50:33 [id number] [place] [id number] 2021-07-14 Outpatient ELCAMPO ELCAMPO [id number] El 09:53:28 [id number] [facility] 2021-05-14 [facility] [id number] [facility] 17:18:15 [id number] [facility] 2021-10-28 2021-11-05 Inpatient ER JENNA, [facility] Medical ICU [id number] [facility] 16:33:00 21:40:00 NOOR 2021-08-14 2021-08-14 Outpatient M LAURITACARSON VERA ELCAMPO [facility] [id number] El 08:51:00 08:51:00 [id number] [place] [id number] [facility] 2021-07-21 2021-07-21 Outpatient E YANIV [facility] [id number] [facility] 00:29:00 02:15:00 LORA [facility] 2021-07-14 2021-07-14 Outpatient M LAURITACARSON VERA ELCAMPO [facility] [id number] [place] 10:03:00 20:46:00 [id number] [place] [facility] [id number] [facility] 2021-05-28 2021-05-31 Inpatient EM Balbir [facility] INTM.01 [id number] [facility] 20:04:00 19:00:00 [id number] [facility] 2021-05-28 2021-05-31 Inpatient EM Balbir [facility] INTM.01 [id number] [facility] 20:04:00 19:00:00 90 [facility] 2021-05-28 2021-05-28 Outpatient KAREN Nino REF [id number] [facility] 19:16:00 19:16:00 Henrique [id number] [facility] 2021-05-27 2021-05-27 Outpatient E DAMIÁN [facility] [id number] [facility] 05:48:00 07:50:00 SHREYAS [facility] 2021-05-14 2021-05-19 Inpatient EL July Mcgregor [facility] ADMI BP30 [id number] [facility] 14:05:00 10:58:00 [id number] [facility] 2021-05-14 2021-05-19 Inpatient EL Me Balbirer [facility] ADMI [id number] [facility] 14:05:00 10:58:00 47 [facility] 2021-05-15 2021-05-15 [address] AhMe ranjiter [id number] [facility] 15:56:00 15:56:00 [id number] [facility] 2021-04-27 2021-04-27 Inpatient EL Balbir Madhav [facility] MEDI.01 BP30 [id number] [facility] 08:33:00 11:30:00 [id number] [facility] 2021-03-29 2021-03-29 Outpatient E MARCI DOWNEY [facility] [id number] [facility] 00:05:00 01:13:00 [facility] [place] 2021-03-09 2021-03-09 Outpatient Shar GIL [facility] [id number] [facility] 00:24:00 03:18:00 [place] 2021-01-26 2021-01-26 Outpatient Shar GIL [facility] [id number] [facility] 00:17:00 01:23:00 [facility] 2020-01-18 2020-01-18 Outpatient Benson_Blak MEHOP MEHOP [id number] [place] 11:45:00 11:45:00 e [id number] [facility] 2019-04-29 2019-04-29 Outpatient Benson_Blak MEHOP MEHOP [id number] [place] 03:23:00 03:23:00 e [id number] da [facility] 2019-04-03 2019-04-03 Outpatient E DAMIÁN [facility] [id number] [facility] 13:52:00 14:48:00 [place] [facility] 2019-03-27 2019-03-27 Outpatient E BEATRIZ [facility] [id number] [facility] 15:56:00 17:00:00 [facility] [place] 2019-03-02 2019-03-02 Leonid ENRIQUE [place] - [id number] M [facility] 00:00:00 00:00:[address] 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 2019-01-27 2019-01-27 Outpatient E BEATRIZ [facility] [id number] [facility] 08:52:00 09:30:00 [facility] 2019-01-09 2019-01-09 Outpatient E BEATRIZ [facility] [id number] [facility] 13:23:00 14:00:00 [facility] [place] 2018-12-30 2018-12-31 Outpatient E DOWNEYMARCI Yeung [facility] [id number] [facility] 22:58:00 00:30:00 [facility] [place] 2018-12-27 2018-12-27 Outpatient E NASREENASPENH [facility] [id number] [facility] 20:15:00 20:51:00 [facility] [place] 2018-12-21 2018-12-21 Outpatient E JONI HENDERSON [facility] [id number] [facility] 14:57:00 16:29:00 [facility] [place] 2018-12-16 2018-12-16 Outpatient E MARLON, [facility] [id number] [facility] 18:53:00 19:21:00 [facility] 2018-12-15 2018-12-15 Outpatient E BEATRIZ [facility] [id number] [facility] 19:25:00 20:35:00 [facility] 2018-12-10 2018-12-10 Outpatient E DELMIS, [facility] [id number] [facility] 20:55:00 21:30:00 PAWAN [facility] 2018-12-09 2018-12-09 Outpatient E BA, LILA [facility] [id number] [facility] 16:33:00 17:20:00 [facility] 2018-11-21 2018-11-21 Outpatient E ZARA [facility] [id number] [facility] 21:31:00 21:43:00 [facility] 2018-11-21 2018-11-21 Outpatient E SHEIKH [facility] [id number] [facility] 04:48:00 05:58:00 [facility] 2018-11-10 2018-11-11 Outpatient E SHEIKH [facility] [id number] [facility] 23:41:00 01:16:00 [facility] 2018-11-07 2018-11-07 Outpatient E BEATRIZ [facility] [id number] [facility] 15:27:00 16:34:00 [facility] 2018-11-02 2018-11-02 Outpatient E BA, LILA [facility] [id number] [facility] 20:45:00 22:15:00 [facility] 2018-10-31 2018-10-31 Outpatient E JONI HENDERSON [facility] [id number] [facility] 21:09:00 22:45:00 [facility] 2018-10-29 2018-10-29 Outpatient E DELMIS [facility] [id number] [facility] 22:10:00 22:46:00 [facility] [place] 2018-10-27 2018-10-27 Outpatient E DOWNEYASPEN YeungH [facility] [id number] [facility] 20:01:00 21:21:00 [facility] [place] 2018-10-15 2018-10-15 Outpatient E YANIV [facility] [id number] [facility] 14:34:00 16:32:00 [facility] 2018-10-08 2018-10-08 Outpatient E ANGELINA GUZMAN [facility] TELE [id number] [facility] 13:41:00 18:34:00 [facility] [place] 2018-10-07 2018-10-07 Outpatient E MARCI DOWNEY [facility] [id number] [facility] 20:39:00 21:52:00 [facility] 2018-09-16 2018-09-17 Outpatient E JONI HENDERSON [facility] [id number] [facility] 23:49:00 01:16:00 [facility] 2018-09-14 2018-09-14 Outpatient E HENDERSON [facility] [id number] [facility] 21:26:00 22:27:00 [facility] 2018-09-01 2018-09-01 Outpatient E BA, LILA [facility] [id number] [facility] 20:57:00 22:19:00 [facility] 2018-09-01 2018-09-01 Outpatient E LAUREANO MICHELLE [facility] [id number] [facility] 16:36:00 18:35:00 [facility] [place] 2018-08-27 2018-08-27 Outpatient E BA, LILA [facility] [id number] [facility] 21:54:00 23:02:00 [facility] 2018-08-24 2018-08-24 Outpatient E JONI HENDERSON [facility] [id number] [facility] 19:52:00 20:35:00 [facility] [place] 2018-08-11 2018-08-11 Outpatient E POTMYRTLE [facility] [id number] [facility] 22:29:00 22:55:00 [facility] 2018-07-26 2018-07-26 Outpatient E BEATRIZ [facility] [id number] [facility] 15:46:00 17:10:00 [facility] [place] 2018-07-20 2018-07-20 Outpatient E MARLON [facility] [id number] [facility] 16:09:00 18:05:00 DOMINIQUE [facility] 2018-07-18 2018-07-18 Outpatient E BEATRIZ [facility] [id number] [facility] 18:00:00 19:54:00 ANIBAL [facility] 2018-07-18 2018-07-18 Outpatient E [facility] [id number] [facility] 18:05:00 18:05:00 [facility] 2018-07-16 2018-07-16 Outpatient E LILA NEIL [facility] [id number] [facility] 18:21:00 19:20:00 [facility] 2018-07-04 2018-07-04 Outpatient E STEVAN, [facility] [id number] [facility] 19:44:00 21:18:00 [facility] 2018-06-05 2018-06-05 Outpatient E JONI HENDERSON [facility] [id number] [facility] 19:35:00 21:08:00 [facility] Results Test Description Test Time Test Comments Results Result Comments Source BODY FLUID CELL COUNT WITH DIFFERENTIAL 2021-11-05 18:04:53 Test Item Value Reference Range Interpretation Comme nts APPEARANCE FLUID Hazy Clear A (BEAKER) (test code = 510) COLOR FLUID (BEAKER) Colorless Colorless, Straw (test code = 511) RBC FLUID (BEAKER) 1000 /cu mm See_Comment H [Automat ed message] (test code = 513) The system which generated this result transmitted ref erence range: <=1. The reference range was not used to int erpret this result as normal/abnormal . ADJUSTED WBC FLUID 246 /cu mm See_Comment H [Automat ed message] (BEAKER) (test code = The sy stem which 1698) generated this result transmitted ref erence range: <=5. The reference range was not used to int erpret this result as normal/abnormal . LINING CELLS (BEAKER) 5 /cu mm See_Comment H [Auto mated message] (test code = 1590) The syste m which generated this result transmitted ref erence range: <=1. The reference range was not used to int erpret this result as normal/abnormal . NEUTROPHILS FLUID 84 % (BEAKER) (test code = 1656) LYMPHS FLUID (BEAKER) 6 % (test code = 488) MONO/MACROPHAGE FLUID 8 % (BEAKER) (test code = 489) EOSINOPHILS FLUID 0 % (BEAKER) (test code = 491) BASO FLUID (BEAKER) 0 % (test code = 492) [id number] Alejandro Hdz M.D. (BEAKER) (test code = (electronic 6340) signature) CONTAINER BODY FLUID Sterile Cup (BEAKER) (test code = 2873) [id number] 17:30:31 Test Item Value Reference Range Interpretation Comments FERRITIN (BEAKER) (test code = 13153.47 ng/mL 10.00-291.00 H 361) Bath Mix Operator ID - CLAVSKIOperator ID - CLAVSKIC-REACTIVE [id number] 16:25:44 Test Item Value Reference Range Interpretation Comments C-REACTIVE PROTEIN (BEAKER) (test 15.13 mg/dL 0.00-1.00 H code = 676) Bath Mix Operator ID - CLAVSKIBASIC METABOLIC [id number] 16:10:50 Test Item Value Reference Range Interpretation Comments SODIUM (BEAKER) 146 meq/L 135-148 (test code = 381) POTASSIUM (BEAKER) 6.3 meq/L 3.6-5.5 HH (test code = 379) CHLORIDE (BEAKER) 119 meq/L 98-106 H (test code = 382) CO2 (BEAKER) (test 16 meq/L 20-29 L code = 355) BLOOD UREA NITROGEN 23 mg/dL 10-26 (BEAKER) (test code = 354) CREATININE (BEAKER) 0.89 mg/dL 0.50-1.20 (test code = 358) GLUCOSE RANDOM 137 mg/dL 70-110 H (BEAKER) (test code = 652) CALCIUM (BEAKER) 8.8 mg/dL 8.5-10.5 (test code = 697) EGFR (BEAKER) (test 64 mL/min/1.73 ESTIMA JULIAN GFR IS code = 1092) sq m NOT ACCURATE CREATININE CLEARANCE IN PREDICTING GLOMERULAR FILTRATION RATE . ESTIMATED GFR I S NOT APPLICABLE FOR DIALYSIS PATIEN TS. Bath Mix Operator ID - CLAVSKILACTATE DEHYDROGENASE (LDH)2021-11-05 16:00:24 Test Item Value Reference Range Interpretation Comments LACTATE DEHYDROGENASE (BEAKER) (test 376 U/L 107-206 H code = 635) Bath Mix Operator ID - [id number] 15:52:33 Test Item Value Reference Range Interpretation Comments D-DIMER QUANTITATIVE 3.24 MG/L FEU <0.50 H Final Information (FADY) (test code = (Auto Output) 551) REGARDING D-DIMER RESULTS: The 98% NPV (Negative Predictive Value) for DVT/PE exclusion is 0.50 mg/LFEU as suggested by the project development coordinator and as approved by the FDA.POCT-GLUCOSE [id number] 13:51:42 Test Item Value Reference Range Interpretation Comments POC-GLUCOSE METER 110 mg/dL 70-110 : TESTED A T [facility] (FADY) (test code CHASEWOO [address], = 1538) [facility] [id number]: Bath Mix Operator/Techni kailyn ID = [id number] for Rand Michaud U/S, ABDOMINAL, [id number] 10:37:00Abdomen limited area? Add comment if clarification is needed.->GallbladderReason for exam:->sepsis [facility]E PUCK[facility] : 1960 Sex: FFINAL REPORT TECHNIQUE: Grayscale ultrasound of the right abdomen. I NDICATION: sepsis. COMPARISON: CT abdomen pelvis 10/30/2021. FINDINGS: MIDLINE VASCULATURE: The visualized inferior vena cava is unremarkable. The maximum visualized aortic diameter is 2.3 cm. LIVER: Mildly lobulated liver contour. Increased hepatic echogenicity. No focal lesions. The main portal vein is patent and measures 1.5 cm in diameter. BILIARY:Gallbladder: Gallbladder sludge is seen. No gallbladder wall thickening, pericholecystic fluid, or distention. Negative sonographic Aburto sign.Common bile duct measures 0.5 cm, within normal limits. No intrahepatic biliary ductal dilatation. PANCREAS:Not well visualized.. PERITONEUM: Trace perihepatic ascites.. RIGHT KIDNEY: Measures 8.2 x 4.1 x 4.3cm with a cortical thickness of 1.3 cm in size. No hydronephrosis. No sonographically evident solid mass lesion. IMPRESSION:Increased hepatic echogenicity with mildly lobulated contour, concerning forhepatic steatosis and/or cirrhosis.Prominent portal vein, may represent component of portal hypertension.Trace perihepatic fluid.Gallbladder sludge without evidence of acute cholecystitis. Signed: Moustapha Rosseport Verified Date/Time: 11/05/2021 10:37:48 Reading Location: [facility] Diagnostic Imaging Reading Room - [facility] 1.310.12 BASIC METABOLIC [id number] 10:29:07 Test Item Value Reference Range Interpretation Comments SODIUM (BEAKER) 145 meq/L 135-148 (test code = 381) POTASSIUM (BEAKER) 4.9 meq/L 3.6-5.5 (test code = 379) CHLORIDE (BEAKER) 119 meq/L 98-106 H (test code = 382) CO2 (BEAKER) (test 14 meq/L 20-29 L code = 355) BLOOD UREA NITROGEN 17 mg/dL 10-26 (BEAKER) (test code = 354) CREATININE (BEAKER) 0.73 mg/dL 0.50-1.20 (test code = 358) GLUCOSE RANDOM 118 mg/dL 70-110 H (BEAKER) (test code = 652) CALCIUM (BEAKER) 7.8 mg/dL 8.5-10.5 L (test code = 697) EGFR (BEAKER) (test 81 mL/min/1.73 ESTIMA JULIAN GFR IS code = 1092) sq m NOT ACCURATE CREATININE CLEARANCE IN PREDICTING GLOMERULAR FILTRATION RATE . ESTIMATED GFR I S NOT APPLICABLE FOR DIALYSIS PATIEN TS. Bath Mix Operator ID - NLYLERAD, CHEST, 1 VIEW, NON [id number] 09:13:00Reason for exam:->shortness of breath [facility] 1960 Sex: FFINAL REPORT Exam: RAD, CHEST, 1 VIEW, NON DEPTDate: 11/05/2021 9:12AM Indication:shortness of breathComparison: 11/04/2021, four hours prior. FINDINGS: Lines/Tubes/Devices: Endotracheal tube in place with distal tip measuring 3.8 cm above the billy. Enteric tube in place seen coursing below the diaphragm with the distal tip collimated out of view. Left IJ CVC in place with distal tip projecting over the SVC. Overlying EKG leads. Lungs/pleura:Lungs are well inflated.Pleural parenchymal opacities are grossly unchanged. No pneumothorax. Heart/Mediastinum:Unchanged Bones/Soft Tissues: No acute osseous abnormality. Upper abdomen: Unremarkable. IMPRESSION:Lines and tubes as above.Pleural parenchymal opacities are grossly unchanged. Signed: Moustapha Ross Verified Date/Time: 11/05/2021 09:13:56 Reading Location: [facility] Diagnostic Imaging Reading Room [place] [id number] POCT-GLUCOSE [id number] 08:05:24 Test Item Value Reference Range Interpretation Comments POC-GLUCOSE METER 147 mg/dL 70-110 H : TESTED A T [facility] (BEAKER) (test code [address]ANELLE [address]CG[address] DR, = 1538) [facility] 3468 [id number]: Bath Mix Operator/Techni kailyn ID = [id number] for Yumiko Luna (MANUAL DIFFERENTIAL)2021-11-05 07:26:54 Test Item Value Reference Range Interpretation Comments NEUTROPHILS - REL (DIFF) (BEAKER) 74 % (test code = 1359) LYMPHOCYTES - REL (DIFF) (BEAKER) 5 % (test code = 1360) MONOCYTES - REL (DIFF) (BEAKER) 2 % (test code = 1361) EOSINOPHILS - REL (DIFF) (BEAKER) 0 % (test code = 1362) BASOPHILS - REL (DIFF) (BEAKER) 1 % (test code = 1363) METAMYELOCYTES-REL (DIFF) 0 % 0-0 (BEAKER) (test code = 258) BANDS - REL (DIFF) (BEAKER) (test 18 % 0-10 H code = 1348) NEUTROPHILS - ABS (DIFF) (BEAKER) 5.40 K/ L 1.80-8.00 (test code = 1365) LYMPHOCYTES - ABS (DIFF) (BEAKER) 0.37 K/ L 1.48-4.50 L (test code = 1366) MONOCYTES - ABS (DIFF) (BEAKER) 0.15 K/ L 0.00-1.30 (test code = 1367) EOSINOPHILS - ABS (DIFF) (BEAKER) 0.00 K/ L 0.00-0.50 (test code = 1368) BASOPHILS - ABS (DIFF) (BEAKER) 0.07 K/ L 0.00-0.20 (test code = 1369) METAMYELOCTYES - ABS (DIFF) 0.00 K/ L 0.00-0.00 (BEAKER) (test code = 261) BANDS-ABS (DIFF) (BEAKER) (test 1.3 K/ L 0.0-0.8 H code = 1349) TOTAL COUNTED (BEAKER) (test code 100 = 1351) BANDS + SEGMENTED NEUTROPHILS 6.72 (BEAKER) (test code = 1352) WBC MORPHOLOGY (BEAKER) (test Normal code = 487) LARGE PLT(BEAKER) (test code = Present 2156) ANISOCYTOSIS (BEAKER) (test code 2+ moderate = 961) HYPOCHROMIA (BEAKER) (test code = 1+ few 963) CBC W/PLT COUNT & AUTO [id number] 07:26:53 Test Item Value Reference Range Interpretation Comments WHITE BLOOD CELL COUNT 7.3 K/ L 4.0-10.0 (BEAKER) (test code = 775) RED BLOOD CELL COUNT 2.62 M/ L 4.00-5.00 L (BEAKER) (test code = 761) HEMOGLOBIN (BEAKER) 7.7 GM/DL 12.0-15.5 L (test code = 410) HEMATOCRIT (BEAKER) 24.8 % 36.0-46.0 L (test code = 411) MEAN CORPUSCULAR VOLUME 94.7 fL 82.0-99.0 (BEAKER) (test code = 753) MEAN CORPUSCULAR 29.4 pg 27.0-33.0 HEMOGLOBIN (BEAKER) (test code = 751) MEAN CORPUSCULAR 31.0 GM/DL 32.0-36.0 L HEMOGLOBIN CONC (BEAKER) (test code = 752) RED CELL DISTRIBUTION 22.1 % 12.0-15.0 H WIDTH (BEAKER) (test code = 412) PLATELET COUNT (BEAKER) 75 K/CU MM 150-430 L (test code = 756) MEAN PLATELET VOLUME Unable to report due (BEAKER) (test code = to abn ormal Platelet 754) population distribution. NUCLEATED RED BLOOD 3 /100 WBC 0-0 H CELLS (BEAKER) (test code = 413) CBC W/PLT COUNT & AUTO [id number] 05:43:38 Test Item Value Reference Range Interpretation Comments WHITE BLOOD CELL COUNT 8.2 K/ L 4.0-10.0 (BEAKER) (test code = 775) RED BLOOD CELL COUNT 2.67 M/ L 4.00-5.00 L (BEAKER) (test code = 761) HEMOGLOBIN (BEAKER) 8.1 GM/DL 12.0-15.5 L (test code = 410) HEMATOCRIT (BEAKER) 25.6 % 36.0-46.0 L (test code = 411) MEAN CORPUSCULAR VOLUME 95.9 fL 82.0-99.0 (BEAKER) (test code = 753) MEAN CORPUSCULAR 30.3 pg 27.0-33.0 HEMOGLOBIN (BEAKER) (test code = 751) MEAN CORPUSCULAR 31.6 GM/DL 32.0-36.0 L HEMOGLOBIN CONC (BEAKER) (test code = 752) RED CELL DISTRIBUTION 21.6 % 12.0-15.0 H WIDTH (BEAKER) (test code = 412) PLATELET COUNT (BEAKER) 84 K/CU MM 150-430 L (test code = 756) MEAN PLATELET VOLUME Unable to report due (BEAKER) (test code = to abn ormal Platelet 754) population distribution. NUCLEATED RED BLOOD 2 /100 WBC 0-0 H CELLS (BEAKER) (test code = 413) (MANUAL DIFFERENTIAL)2021-11-05 05:43:38 Test Item Value Reference Range Interpretation Comments NEUTROPHILS - REL (DIFF) (BEAKER) 63 % (test code = 1359) LYMPHOCYTES - REL (DIFF) (BEAKER) 3 % (test code = 1360) MONOCYTES - REL (DIFF) (BEAKER) 5 % (test code = 1361) EOSINOPHILS - REL (DIFF) (BEAKER) 0 % (test code = 1362) BASOPHILS - REL (DIFF) (BEAKER) 0 % (test code = 1363) METAMYELOCYTES-REL (DIFF) 1 % 0-0 H (BEAKER) (test code = 258) BANDS - REL (DIFF) (BEAKER) (test 28 % 0-10 H code = 1348) NEUTROPHILS - ABS (DIFF) (BEAKER) 5.17 K/ L 1.80-8.00 (test code = 1365) LYMPHOCYTES - ABS (DIFF) (BEAKER) 0.25 K/ L 1.48-4.50 L (test code = 1366) MONOCYTES - ABS (DIFF) (BEAKER) 0.41 K/ L 0.00-1.30 (test code = 1367) EOSINOPHILS - ABS (DIFF) (BEAKER) 0.00 K/ L 0.00-0.50 (test code = 1368) BASOPHILS - ABS (DIFF) (BEAKER) 0.00 K/ L 0.00-0.20 (test code = 1369) METAMYELOCTYES - ABS (DIFF) 0.08 K/ L 0.00-0.00 H (BEAKER) (test code = 261) BANDS-ABS (DIFF) (BEAKER) (test 2.3 K/ L 0.0-0.8 H code = 1349) TOTAL COUNTED (BEAKER) (test code 100 = 1351) BANDS + SEGMENTED NEUTROPHILS 7.46 (BEAKER) (test code = 1352) WBC MORPHOLOGY (BEAKER) (test Normal code = 487) LARGE PLT(BEAKER) (test code = Present 2156) ANISOCYTOSIS (BEAKER) (test code 2+ moderate = 961) POLYCHROMATOPHILLIC RBCS(BEAKER) 1+ few (test code = 478) COMPREHENSIVE METABOLIC [id number] 05:01:16 Test Item Value Reference Range Interpretation Comments TOTAL PROTEIN 5.4 gm/dL 6.0-8.5 L (BEAKER) (test code = 770) ALBUMIN (BEAKER) 3.3 g/dL 3.5-5.0 L (test code = 1145) ALKALINE PHOSPHATASE 517 U/L 30-115 H (BEAKER) (test code = 346) BILIRUBIN TOTAL 1.1 mg/dL 0.1-1.2 (BEAKER) (test code = 377) SODIUM (BEAKER) (test 147 meq/L 135-148 code = 381) POTASSIUM (BEAKER) 5.9 meq/L 3.6-5.5 H (test code = 379) CHLORIDE (BEAKER) 115 meq/L 98-106 H (test code = 382) CO2 (BEAKER) (test 21 meq/L 20-29 code = 355) BLOOD UREA NITROGEN 19 mg/dL 10-26 (BEAKER) (test code = 354) CREATININE (BEAKER) 0.85 mg/dL 0.50-1.20 (test code = 358) GLUCOSE RANDOM 183 mg/dL 70-110 H (BEAKER) (test code = 652) CALCIUM (BEAKER) 9.3 mg/dL 8.5-10.5 (test code = 697) AST (SGOT) (BEAKER) 197 U/L 5-40 H (test code = 353) ALT (SGPT) (BEAKER) 64 U/L 5-50 H (test code = 347) EGFR (BEAKER) (test 68 mL/min/1.73 ESTIMA JULIAN GFR IS code = 1092) sq m NOT ACCURATE CREATININE CLEARANCE IN PREDICTING GLOMERULAR FILTRATION RATE . ESTIMATED GFR I S NOT APPLICABLE FOR DIALYSIS PATIEN TS. Bath Mix Operator ID - BRUCEBLOOD GAS, [id number] 04:47:00 Test Item Value Reference Range Interpretation Comments PH ARTERIAL (BEAKER) (test code = 7.46 7.35-7.45 H 383) PCO2 ARTERIAL (BEAKER) (test code 28 mm Hg 35-45 L = 384) PO2 ARTERIAL (BEAKER) (test code 210 mm Hg 80-90 H = 385) O2 SATURATION ARTERIAL (BEAKER) 99.8 % 96.0-97.0 H (test code = 386) HCO3 ARTERIAL (BEAKER) (test code 20 mmol/L 21-29 L = 388) BASE EXCESS ARTERIAL (BEAKER) -4.1 mmol/L -2.0-3.0 L (test code = 387) PATIENT TEMPERATURE (BEAKER) 33.5 (test code = 1818) HEPATIC FUNCTION [id number] 01:21:51 Test Item Value Reference Range Interpretation Comments TOTAL PROTEIN (BEAKER) (test code = 5.3 gm/dL 6.0-8.5 L 770) ALBUMIN (BEAKER) (test code = 1145) 3.0 g/dL 3.5-5.0 L BILIRUBIN TOTAL (BEAKER) (test code 0.7 mg/dL 0.1-1.2 = 377) BILIRUBIN DIRECT (BEAKER) (test 0.5 mg/dL 0.0-0.4 H code = 706) ALKALINE PHOSPHATASE (BEAKER) (test 388 U/L 30-115 H code = 346) AST (SGOT) (BEAKER) (test code = 167 U/L 5-40 H 353) ALT (SGPT) (BEAKER) (test code = 60 U/L 5-50 H 347) Bath Mix Operator ID - BRUCECOMPREHENSIVE METABOLIC [id number] 01:21:45 Test Item Value Reference Range Interpretation Comments TOTAL PROTEIN 5.3 gm/dL 6.0-8.5 L (BEAKER) (test code = 770) ALBUMIN (BEAKER) 3.0 g/dL 3.5-5.0 L (test code = 1145) ALKALINE PHOSPHATASE 388 U/L 30-115 H (BEAKER) (test code = 346) BILIRUBIN TOTAL 0.7 mg/dL 0.1-1.2 (BEAKER) (test code = 377) SODIUM (BEAKER) (test 146 meq/L 135-148 code = 381) POTASSIUM (BEAKER) 6.1 meq/L 3.6-5.5 HH (test code = 379) CHLORIDE (BEAKER) 117 meq/L 98-106 H (test code = 382) CO2 (BEAKER) (test 18 meq/L 20-29 L code = 355) BLOOD UREA NITROGEN 19 mg/dL 10-26 (BEAKER) (test code = 354) CREATININE (BEAKER) 0.78 mg/dL 0.50-1.20 (test code = 358) GLUCOSE RANDOM 126 mg/dL 70-110 H (BEAKER) (test code = 652) CALCIUM (BEAKER) 8.8 mg/dL 8.5-10.5 (test code = 697) AST (SGOT) (BEAKER) 167 U/L 5-40 H (test code = 353) ALT (SGPT) (BEAKER) 60 U/L 5-50 H (test code = 347) EGFR (BEAKER) (test 75 mL/min/1.73 ESTIMA JULIAN GFR IS code = 1092) sq m NOT ACCURATE CREATININE CLEARANCE IN PREDICTING GLOMERULAR FILTRATION RATE . ESTIMATED GFR I S NOT APPLICABLE FOR DIALYSIS PATIEN TS. Bath Mix Operator ID - [id number] 01:19:36 Test Item Value Reference Range Interpretation Comments PHOSPHORUS (BEAKER) (test code = 6.3 mg/dL 2.5-4.5 H 604) Bath Mix Operator ID - [id number] 01:19:35 Test Item Value Reference Range Interpretation Comments MAGNESIUM (BEAKER) (test code = 2.3 mg/dL 1.5-3.0 627) Bath Mix Operator ID - JEAN MARIEBLOOD GAS, [id number] 23:23:23 Test Item Value Reference Range Interpretation Comments PH ARTERIAL (BEAKER) (test code = 7.37 7.35-7.45 383) PCO2 ARTERIAL (BEAKER) (test code 35 mm Hg 35-45 = 384) PO2 ARTERIAL (BEAKER) (test code 174 mm Hg 80-90 H = 385) O2 SATURATION ARTERIAL (BEAKER) 99.2 % 96.0-97.0 H (test code = 386) HCO3 ARTERIAL (BEAKER) (test code 20 mmol/L 21-29 L = 388) BASE EXCESS ARTERIAL (BEAKER) -5.1 mmol/L -2.0-3.0 L (test code = 387) PATIENT TEMPERATURE (BEAKER) 36.0 (test code = 1818) RAD, CHEST, 1 VIEW, NON [id number] 22:18:00Reason for exam:->ETT PlacementShould this be performed at the bedside?->Yes [facility] : 1960 Sex: FFINAL REPORT RAD, CHEST, 1 VIEW, NON DEPT INDICATION: ETT Placement COMPARISON: Prior day's exam FINDINGS: Portable frontal view of the chest. IMPRESSION: Support Lines: Endotracheal tube now terminates 4.9 cm cephalad to the billy. Enteric tube descends towards the stomach beyond the [id number]. Stable left transjugular central venous catheter. Lungs and pleura: Interval improved aeration of the left lung. Unchanged airspace opacities on the right. No pneumothorax. Heart and mediastinum: Stable contours. Additional findings: None. Signed: Shelley Clarke MDReport Verified Date/Time: 11/04/2021 22:18:33 REHENSIVE METABOLIC [id number] 21:23:06 Test Item Value Reference Range Interpretation Comments TOTAL PROTEIN 5.6 gm/dL 6.0-8.5 L (BEAKER) (test code = 770) ALBUMIN (BEAKER) 3.2 g/dL 3.5-5.0 L (test code = 1145) ALKALINE PHOSPHATASE 396 U/L 30-115 H (BEAKER) (test code = 346) BILIRUBIN TOTAL 0.7 mg/dL 0.1-1.2 (BEAKER) (test code = 377) SODIUM (BEAKER) (test 145 meq/L 135-148 code = 381) POTASSIUM (BEAKER) 5.8 meq/L 3.6-5.5 H (test code = 379) CHLORIDE (BEAKER) 117 meq/L 98-106 H (test code = 382) CO2 (BEAKER) (test 18 meq/L 20-29 L code = 355) BLOOD UREA NITROGEN 17 mg/dL 10-26 (BEAKER) (test code = 354) CREATININE (BEAKER) 0.78 mg/dL 0.50-1.20 (test code = 358) GLUCOSE RANDOM 109 mg/dL 70-110 (BEAKER) (test code = 652) CALCIUM (BEAKER) 9.0 mg/dL 8.5-10.5 (test code = 697) AST (SGOT) (BEAKER) 141 U/L 5-40 H (test code = 353) ALT (SGPT) (BEAKER) 54 U/L 5-50 H (test code = 347) EGFR (BEAKER) (test 75 mL/min/1.73 ESTIMA JULIAN GFR IS code = 1092) sq m NOT ACCURATE CREATININE CLEARANCE IN PREDICTING GLOMERULAR FILTRATION RATE . ESTIMATED GFR I S NOT APPLICABLE FOR DIALYSIS PATIEN TS. Bath Mix Operator ID - BRUCELACTIC ACID, [id number] 21:10:50 Test Item Value Reference Range Interpretation Comments LACTATE BLOOD VENOUS (2) (BEAKER) 1.64 mmol/L 0.50-2.00 (test code = 2872) Bath Mix Operator ID - BRUCEHEMOGLOBIN AND [id number] 19:10:14 Test Item Value Reference Range Interpretation Comments HEMOGLOBIN (BEAKER) (test code = 8.9 GM/DL 12.0-15.5 L 410) HEMATOCRIT (BEAKER) (test code = 28.8 % 36.0-46.0 L 411) BLOOD GAS, [id number] 19:08:56 Test Item Value Reference Range Interpretation Comments PH ARTERIAL (BEAKER) (test code = 7.31 7.35-7.45 L 383) PCO2 ARTERIAL (BEAKER) (test code 35 mm Hg 35-45 = 384) PO2 ARTERIAL (BEAKER) (test code 109 mm Hg 80-90 H = 385) O2 SATURATION ARTERIAL (BEAKER) 98.0 % 96.0-97.0 H (test code = 386) HCO3 ARTERIAL (BEAKER) (test code 18 mmol/L 21-29 L = 388) BASE EXCESS ARTERIAL (BEAKER) -8.0 mmol/L -2.0-3.0 L (test code = 387) PATIENT TEMPERATURE (BEAKER) 35.5 (test code = 1818) [id number] 18:08:38 Test Item Value Reference Range Interpretation Comments PROCALCITONIN (FADY) (test code 0.66 ng/mL <0.05 H = 3036) SEPSIS RISK (ng/mL)Low: 0.05-0.50Intermediate: 0.51-2.00High: >=2.01RAD, CHEST, 1 VIEW, NON [id number] 13:50:00Reason for exam:- >post intubationShould this be performed at the bedside?->Yes [facility] : 1960 Sex: FFINAL REPORT Chest, 1 view, 11/04/2021 1:43 PM. History: Intubation. Comparison: 11/04/2021. Discussion: Endotracheal tube is present terminating just above the level ofthe billy. There is slightly improved aeration of the left upper lung. Left base remains opacified.Right lung is unchanged. The cardiac silhouette is stable. There is no pneumothorax. Other supporting lines and tubes are unchanged. The soft tissues and osseous structures are intact. IMPRESSION: Slightly improved aeration of the left upper lobe post intubation. Signed: Gilmer Tejadaeport Verified Date/Time: 11/04/2021 13:50:28 Reading Location: [facility] BLOOD GAS, [id number] 13:05:21 Test Item Value Reference Range Interpretation Comments PH ARTERIAL (FADY) (test code = 7.19 7.35-7.45 LL 383) PCO2 ARTERIAL (BEAKER) (test code 51 mm Hg 35-45 H = 384) PO2 ARTERIAL (BEAKER) (test code 67 mm Hg 80-90 L = 385) O2 SATURATION ARTERIAL (BEAKER) 93.4 % 96.0-97.0 L (test code = 386) HCO3 ARTERIAL (BEAKER) (test code 20 mmol/L 21-29 L = 388) BASE EXCESS ARTERIAL (BEAKER) -8.7 mmol/L -2.0-3.0 L (test code = 387) PATIENT TEMPERATURE (BEAKER) 34.4 (test code = 1818) RAD, CHEST, 1 VIEW, NON [id number] 12:57:00Reason for exam:->follow up on left lung pluggingShould this be performed at the bedside?->Yes [facility] : 1960 Sex: FFINAL REPORT Chest, 1 view, 11/04/2021 12:46 PM. History: Left lung follow-up. Comparison: 11/04/2021. Discussion: Complete opacification of the left hemithorax is unchanged. Hazy right pleuroparenchymal opacity is unchanged. NG tube and left IJ central line are unchanged in position. The soft tissues and osseous structures are intact. IMPRESSION: No significant change. Signed: Gilmer Tejada Verified Date/Time: 11/04/2021 12:57:12 Reading Location: [facility] [id number] 11:19:57 Test Item Value Reference Range Interpretation Comments CORTISOL, TOTAL (BEAKER) (test code 8.6 ug/dL 3.7-19.4 = 2755) Bath Mix Operator ID - DB(MANUAL DIFFERENTIAL)2021-11-04 09:19:21 Test Item Value Reference Range Interpretation Comments NEUTROPHILS - REL (DIFF) (BEAKER) 80 % (test code = 1359) LYMPHOCYTES - REL (DIFF) (BEAKER) 8 % (test code = 1360) MONOCYTES - REL (DIFF) (BEAKER) 1 % (test code = 1361) EOSINOPHILS - REL (DIFF) (BEAKER) 1 % (test code = 1362) BASOPHILS - REL (DIFF) (BEAKER) 0 % (test code = 1363) BANDS - REL (DIFF) (BEAKER) (test 10 % 0-10 code = 1348) NEUTROPHILS - ABS (DIFF) (BEAKER) 4.32 K/ L 1.80-8.00 (test code = 1365) LYMPHOCYTES - ABS (DIFF) (BEAKER) 0.43 K/ L 1.48-4.50 L (test code = 1366) MONOCYTES - ABS (DIFF) (BEAKER) 0.05 K/ L 0.00-1.30 (test code = 1367) EOSINOPHILS - ABS (DIFF) (BEAKER) 0.05 K/ L 0.00-0.50 (test code = 1368) BASOPHILS - ABS (DIFF) (BEAKER) 0.00 K/ L 0.00-0.20 (test code = 1369) BANDS-ABS (DIFF) (BEAKER) (test 0.5 K/ L 0.0-0.8 code = 1349) TOTAL COUNTED (BEAKER) (test code = 100 1351) BANDS + SEGMENTED NEUTROPHILS 4.86 (BEAKER) (test code = 1352) WBC MORPHOLOGY (BEAKER) (test code Normal = 487) LARGE PLT(BEAKER) (test code = Present 2156) ANISOCYTOSIS (BEAKER) (test code = 1+ few 961) HYPOCHROMIA (BEAKER) (test code = 1+ few 963) POLYCHROMATOPHILLIC RBCS(BEAKER) 1+ few (test code = 478) CBC W/PLT COUNT & AUTO [id number] 09:19:20 Test Item Value Reference Range Interpretation Comments WHITE BLOOD CELL COUNT 5.4 K/ L 4.0-10.0 (BEAKER) (test code = 775) RED BLOOD CELL COUNT 2.45 M/ L 4.00-5.00 L (BEAKER) (test code = 761) HEMOGLOBIN (BEAKER) 7.3 GM/DL 12.0-15.5 L (test code = 410) HEMATOCRIT (BEAKER) 23.3 % 36.0-46.0 L (test code = 411) MEAN CORPUSCULAR VOLUME 95.1 fL 82.0-99.0 (BEAKER) (test code = 753) MEAN CORPUSCULAR 29.8 pg 27.0-33.0 HEMOGLOBIN (BEAKER) (test code = 751) MEAN CORPUSCULAR 31.3 GM/DL 32.0-36.0 L HEMOGLOBIN CONC (BEAKER) (test code = 752) RED CELL DISTRIBUTION 21.0 % 12.0-15.0 H WIDTH (BEAKER) (test code = 412) PLATELET COUNT (BEAKER) 53 K/CU MM 150-430 L (test code = 756) MEAN PLATELET VOLUME Unable to report due (BEAKER) (test code = to abn ormal Platelet 754) population distribution. NUCLEATED RED BLOOD 1 /100 WBC 0-0 H CELLS (BEAKER) (test code = 413) COMPREHENSIVE METABOLIC [id number] 09:19:05 Test Item Value Reference Range Interpretation Comments TOTAL PROTEIN 4.5 gm/dL 6.0-8.5 L (BEAKER) (test code = 770) ALBUMIN (BEAKER) 2.0 g/dL 3.5-5.0 L (test code = 1145) ALKALINE PHOSPHATASE 296 U/L 30-115 H (BEAKER) (test code = 346) BILIRUBIN TOTAL 0.4 mg/dL 0.1-1.2 (BEAKER) (test code = 377) SODIUM (BEAKER) (test 143 meq/L 135-148 code = 381) POTASSIUM (BEAKER) 5.1 meq/L 3.6-5.5 (test code = 379) CHLORIDE (BEAKER) 116 meq/L 98-106 H (test code = 382) CO2 (BEAKER) (test 23 meq/L 20-29 code = 355) BLOOD UREA NITROGEN 15 mg/dL 10-26 (BEAKER) (test code = 354) CREATININE (BEAKER) 0.76 mg/dL 0.50-1.20 (test code = 358) GLUCOSE RANDOM 102 mg/dL 70-110 (BEAKER) (test code = 652) CALCIUM (BEAKER) 8.6 mg/dL 8.5-10.5 (test code = 697) AST (SGOT) (BEAKER) 60 U/L 5-40 H (test code = 353) ALT (SGPT) (BEAKER) 37 U/L 5-50 (test code = 347) EGFR (BEAKER) (test 77 mL/min/1.73 ESTIMA JULIAN GFR IS code = 1092) sq m NOT ACCURATE CREATININE CLEARANCE IN PREDICTING GLOMERULAR FILTRATION RATE . ESTIMATED GFR I S NOT APPLICABLE FOR DIALYSIS PATIEN TS. Bath Mix Operator ID - NLYLETROPONIN [id number] 09:14:57 Test Item Value Reference Range Interpretation Comments TROPONIN I (BEAKER) (test code = 397) < ng/mL 0.00-0.03 Troponin I (TnI) levels must be interpreted in the context of the presenting symptoms and the clinical findings. Elevated TnI levels indicate myocardial damage, but are not specific for ischemic heart disease. Elevated TnI levels are seen in patients with other cardiac conditions (including myocarditis and congestive heart failure), and slight TnI elevations occur in patients with other conditions, including sepsis, renal failure, acidosis, acute neurological disease, and persistent tachyarrhythmia.Bath Mix Operator ID - [id number] 09:12:55 Test Item Value Reference Range Interpretation Comments MAGNESIUM (BEAKER) (test code = 1.8 mg/dL 1.5-3.0 627) Bath Mix Operator ID - [id number] 09:12:55 Test Item Value Reference Range Interpretation Comments PHOSPHORUS (BEAKER) (test code = 5.2 mg/dL 2.5-4.5 H 604) Bath Mix Operator ID - NLYLELACTIC ACID, [id number] 08:54:45 Test Item Value Reference Range Interpretation Comments LACTATE BLOOD VENOUS (2) (BEAKER) 0.75 mmol/L 0.50-2.00 (test code = 2872) Bath Mix Operator ID - NLYLEBLOOD GAS, [id number] 08:44:45 Test Item Value Reference Range Interpretation Comments PH VENOUS (BEAKER) (test code = 7.22 7.32-7.42 L 701) PCO2 VENOUS (BEAKER) (test code = 58 mm Hg 41-51 H 755) PO2 VENOUS (BEAKER) (test code = 51 mm Hg 25-40 H 702) O2 SATURATION VENOUS (BEAKER) 82.5 % 40.0-70.0 H (test code = 703) HCO3 VENOUS (BEAKER) (test code = 23 mmol/L 21-29 705) BASE EXCESS VENOUS (BEAKER) (test -4.6 mmol/L -2.0-3.0 L code = 704) PATIENT TEMPERATURE (BEAKER) 37.0 (test code = 1818) RAD, CHEST, 1 VIEW, NON [id number] 08:44:00Reason for exam:->resp failureShould this be performed at the bedside?->Yes [facility] : 1960 Sex: FFINAL REPORT CLINICAL HISTORY: resp failure TECHNIQUE: 1 view of the chest. COMPARISON: 11/03/2021 IMPRESSION: The supporting lines and tubes are similar appearing. There is increased, now essentially complete, pleural- parenchymal opacification of left hemithorax. Diffuse right lung airspace opacity and a right pleural effusion are also increased. The cardiac mediastinal silhouette is obscured and newly shifted into the left hemithorax. Signed: Robert Rios MDReport Verified Date/Time: 11/04/2021 08:44:46 Reading Location: [facility] Radiology Reading Room CBC W/PLT COUNT & AUTO [id number] 04:48:10 Test Item Value Reference Range Interpretation Comments WHITE BLOOD CELL COUNT (BEAKER) 5.6 K/ L 4.0-10.0 (test code = 775) RED BLOOD CELL COUNT (BEAKER) 2.51 M/ L 4.00-5.00 L (test code = 761) HEMOGLOBIN (BEAKER) (test code = 7.6 GM/DL 12.0-15.5 L 410) HEMATOCRIT (BEAKER) (test code = 23.8 % 36.0-46.0 L 411) MEAN CORPUSCULAR VOLUME (BEAKER) 94.8 fL 82.0-99.0 (test code = 753) MEAN CORPUSCULAR HEMOGLOBIN 30.3 pg 27.0-33.0 (BEAKER) (test code = 751) MEAN CORPUSCULAR HEMOGLOBIN CONC 31.9 GM/DL 32.0-36.0 L (BEAKER) (test code = 752) RED CELL DISTRIBUTION WIDTH 20.9 % 12.0-15.0 H (BEAKER) (test code = 412) PLATELET COUNT (BEAKER) (test code 53 K/CU MM 150-430 L = 756) MEAN PLATELET VOLUME (BEAKER) 13.4 fL 6.0-11.5 H (test code = 754) NUCLEATED RED BLOOD CELLS (BEAKER) 1 /100 WBC 0-0 H (test code = 413) (MANUAL DIFFERENTIAL)2021-11-04 04:48:10 Test Item Value Reference Range Interpretation Comments NEUTROPHILS - REL (DIFF) (BEAKER) 71 % (test code = 1359) LYMPHOCYTES - REL (DIFF) (BEAKER) 19 % (test code = 1360) MONOCYTES - REL (DIFF) (BEAKER) 0 % (test code = 1361) EOSINOPHILS - REL (DIFF) (BEAKER) 1 % (test code = 1362) BASOPHILS - REL (DIFF) (BEAKER) 0 % (test code = 1363) BANDS - REL (DIFF) (BEAKER) (test 9 % 0-10 code = 1348) NEUTROPHILS - ABS (DIFF) (BEAKER) 3.98 K/ L 1.80-8.00 (test code = 1365) LYMPHOCYTES - ABS (DIFF) (BEAKER) 1.06 K/ L 1.48-4.50 L (test code = 1366) MONOCYTES - ABS (DIFF) (BEAKER) 0.00 K/ L 0.00-1.30 (test code = 1367) EOSINOPHILS - ABS (DIFF) (BEAKER) 0.06 K/ L 0.00-0.50 (test code = 1368) BASOPHILS - ABS (DIFF) (BEAKER) 0.00 K/ L 0.00-0.20 (test code = 1369) BANDS-ABS (DIFF) (BEAKER) (test 0.5 K/ L 0.0-0.8 code = 1349) TOTAL COUNTED (BEAKER) (test code = 100 1351) BANDS + SEGMENTED NEUTROPHILS 4.48 (BEAKER) (test code = 1352) WBC MORPHOLOGY (BEAKER) (test code Normal = 487) LARGE PLT(BEAKER) (test code = Present 2156) ANISOCYTOSIS (BEAKER) (test code = 1+ few 961) HYPOCHROMIA (BEAKER) (test code = 1+ few 963) POLYCHROMATOPHILLIC RBCS(BEAKER) 1+ few (test code = 478) BASIC METABOLIC [id number] 04:42:46 Test Item Value Reference Range Interpretation Comments SODIUM (BEAKER) 142 meq/L 135-148 (test code = 381) POTASSIUM (BEAKER) 5.3 meq/L 3.6-5.5 (test code = 379) CHLORIDE (BEAKER) 116 meq/L 98-106 H (test code = 382) CO2 (BEAKER) (test 20 meq/L 20-29 code = 355) BLOOD UREA NITROGEN 15 mg/dL 10-26 (BEAKER) (test code = 354) CREATININE (BEAKER) 0.77 mg/dL 0.50-1.20 (test code = 358) GLUCOSE RANDOM 98 mg/dL 70-110 (BEAKER) (test code = 652) CALCIUM (BEAKER) 8.8 mg/dL 8.5-10.5 (test code = 697) EGFR (BEAKER) (test 76 mL/min/1.73 ESTIMA JULIAN GFR IS code = 1092) sq m NOT ACCURATE CREATININE CLEARANCE IN PREDICTING GLOMERULAR FILTRATION RATE . ESTIMATED GFR I S NOT APPLICABLE FOR DIALYSIS PATIEN TS. Bath Mix Operator ID - Priscilla [id number] 04:42:46 Test Item Value Reference Range Interpretation Comments MAGNESIUM (BEAKER) (test code = 1.9 mg/dL 1.5-3.0 627) Bath Mix Operator ID - Priscilla [id number] 04:42:46 Test Item Value Reference Range Interpretation Comments PHOSPHORUS (BEAKER) (test code = 5.1 mg/dL 2.5-4.5 H 604) Bath Mix Operator ID - Priscilla TVANCOMYCIN LEVEL, [id number] 23:56:45 Test Item Value Reference Range Interpretation Comments VANCOMYCIN TROUGH (BEAKER) (test 23.5 ug/mL 10.0-20.0 H code = 522) Bath Mix Operator ID - Priscilla TBLOOD [id number] 19:00:53 Test Item Value Reference Range Interpretation Comments CULTURE (BEAKER) (test No growth in 5 days code = 1095) The specimen volume collected for this blood culture was below the optimum (10 mL per bottle or 20 mL total). Use of lower volumes may adversely affect recovery and/or detection times of some organisms.[id number] 17:19:40 Test Item Value Reference Range Interpretation Comments FERRITIN (BEAKER) (test code = 3015.88 ng/mL 10.00-291.00 H 361) Bath Mix Operator ID - NOLIOperator ID - NOLIC-REACTIVE [id number] 15:47:18 Test Item Value Reference Range Interpretation Comments C-REACTIVE PROTEIN (BEAKER) (test 15.00 mg/dL 0.00-1.00 H code = 676) Bath Mix Operator ID - [id number] 15:40:43 Test Item Value Reference Range Interpretation Comments D-DIMER QUANTITATIVE 2.68 MG/L FEU <0.50 H Final Information (BEAKER) (test code = (Auto Output) 671) REGARDING D-DIMER RESULTS: The 98% NPV (Negative Predictive Value) for DVT/PE exclusion is 0.50 mg/LFEU as suggested by the project development coordinator and as approved by the FDA.LACTATE DEHYDROGENASE (LDH)2021-11-03 15:40:18 Test Item Value Reference Range Interpretation Comments LACTATE DEHYDROGENASE (BEAKER) (test 194 U/L 107-206 code = 635) Bath Mix Operator ID - NLYLERAD, ABDOMEN/KUB, 1 VIEW [id number] 14:33:00Reason for exam:->verification of NGT placement [facility] : 1960 Sex: FFINAL REPORT Abdomen x-ray Clinical Diagnosis: NG tube placementComp arison: 11/01/2021Views: Single supine view the abdomen obtained FINDINGS/IMPRESSION:Enteric tube noted coursing below the diaphragm with distal tip turning in the left upper quadrant over the stomach. There is stable mild gaseous distention of loops of bowel. No intraperitoneal free air is appreciated on this supine view examination. Signed: Yfn Trejo Verified Date/Time: 11/03/2021 14:33:05 Reading Location: [facility] Diagnostic Imaging Reading Room - [facility] 1.310.12 BLOOD [id number] 12:00:20 Test Item Value Reference Range Interpretation Comments CULTURE (BEAKER) (test No growth in 5 days code = 1095) BLOOD [id number] 11:32:48 Test Item Value Reference Range Interpretation Comments CULTURE A From Anaerobic Bottle (BEAKER) (test Only Coagulas e code = 1095) negative Staphylococcus GRAM STAIN From anaerobic RESULT (BEAKER) bottle only: gram (test code = positive cocci in 1123) clusters The specimen volume collected for this blood culture was below the optimum (10 mL per bottle or 20 mL total). Use of lower volumes may adversely affect recovery and/or detection times of some organisms.RAD, CHEST, 1 VIEW, NON DEPT 2021-11-03 08:55:00Reason for exam:->Shortness of breathShould this be performed at the bedside?->Yes [facility] : 1960 Sex: FFINAL REPORT Chest, 1 view. History: Shortness of breath. Comparison: 10/31/2021. IMPRESSION: Endotracheal tube is no longer present. Left IJ central venous catheter identified in stable position. Enteric tube noted coursing below the diaphragm. There is grossly stableappearing small bilateral pleural effusions, left greater than right. There are stable appearing interstitial opacities present bilaterally. There is no evidence for pneumothorax. The cardiomediastinalsilhouette is stable in appearance. No acute osseous abnormality is identified. Signed: Yfn Trejo Verified Date/Time: 11/03/2021 08:55:30 Reading Location: [facility] Diagnostic Imaging Reading Room - [place] [address] [id number] 07:37:50 Test Item Value Reference Range Interpretation Comments PHOSPHORUS (BEAKER) (test code = 4.1 mg/dL 2.5-4.5 604) Bath Mix Operator ID - NLYLECBC W/PLT COUNT & AUTO [id number] 07:07:46 Test Item Value Reference Range Interpretation Comments WHITE BLOOD CELL COUNT (BEAKER) 7.7 K/ L 4.0-10.0 (test code = 775) RED BLOOD CELL COUNT (BEAKER) 2.55 M/ L 4.00-5.00 L (test code = 761) HEMOGLOBIN (BEAKER) (test code = 7.6 GM/DL 12.0-15.5 L 410) HEMATOCRIT (BEAKER) (test code = 23.8 % 36.0-46.0 L 411) MEAN CORPUSCULAR VOLUME (BEAKER) 93.3 fL 82.0-99.0 (test code = 753) MEAN CORPUSCULAR HEMOGLOBIN 29.8 pg 27.0-33.0 (BEAKER) (test code = 751) MEAN CORPUSCULAR HEMOGLOBIN CONC 31.9 GM/DL 32.0-36.0 L (BEAKER) (test code = 752) RED CELL DISTRIBUTION WIDTH 20.2 % 12.0-15.0 H (BEAKER) (test code = 412) PLATELET COUNT (BEAKER) (test code 54 K/CU MM 150-430 L = 756) MEAN PLATELET VOLUME (BEAKER) 13.3 fL 6.0-11.5 H (test code = 754) NUCLEATED RED BLOOD CELLS (BEAKER) 1 /100 WBC 0-0 H (test code = 413) NEUTROPHILS RELATIVE PERCENT 76 % (BEAKER) (test code = 429) LYMPHOCYTES RELATIVE PERCENT 17 % (BEAKER) (test code = 430) MONOCYTES RELATIVE PERCENT 5 % (BEAKER) (test code = 431) EOSINOPHILS RELATIVE PERCENT 1 % (BEAKER) (test code = 432) BASOPHILS RELATIVE PERCENT 0 % (BEAKER) (test code = 437) NEUTROPHILS ABSOLUTE COUNT 5.80 K/ L 1.80-8.00 (BEAKER) (test code = 670) LYMPHOCYTES ABSOLUTE COUNT 1.30 K/ L 1.48-4.50 L (BEAKER) (test code = 414) MONOCYTES ABSOLUTE COUNT (BEAKER) 0.38 K/ L 0.00-1.30 (test code = 415) EOSINOPHILS ABSOLUTE COUNT 0.08 K/ L 0.00-0.50 (BEAKER) (test code = 416) BASOPHILS ABSOLUTE COUNT (BEAKER) 0.01 K/ L 0.00-0.20 (test code = 417) IMMATURE GRANULOCYTES-RELATIVE 1 % 0-0 H PERCENT (BEAKER) (test code = 2801) (MANUAL DIFFERENTIAL)2021-11-03 07:07:46 Test Item Value Reference Range Interpretation Comments TOTAL COUNTED (BEAKER) (test code = 1351) WBC MORPHOLOGY (BEAKER) (test Normal code = 487) PLT MORPHOLOGY (BEAKER) (test Normal code = 486) ANISOCYTOSIS (BEAKER) (test code 2+ moderate = 961) POLYCHROMATOPHILLIC RBCS(BEAKER) 1+ few (test code = 478) BASIC METABOLIC [id number] 04:20:36 Test Item Value Reference Range Interpretation Comments SODIUM (BEAKER) 143 meq/L 135-148 (test code = 381) POTASSIUM (BEAKER) 4.6 meq/L 3.6-5.5 (test code = 379) CHLORIDE (BEAKER) 115 meq/L 98-106 H (test code = 382) CO2 (BEAKER) (test 22 meq/L 20-29 code = 355) BLOOD UREA NITROGEN 15 mg/dL 10-26 (BEAKER) (test code = 354) CREATININE (BEAKER) 0.84 mg/dL 0.50-1.20 (test code = 358) GLUCOSE RANDOM 111 mg/dL 70-110 H (BEAKER) (test code = 652) CALCIUM (BEAKER) 8.5 mg/dL 8.5-10.5 (test code = 697) EGFR (BEAKER) (test 69 mL/min/1.73 ESTIMA JULIAN GFR IS code = 1092) sq m NOT ACCURATE CREATININE CLEARANCE IN PREDICTING GLOMERULAR FILTRATION RATE . ESTIMATED GFR I S NOT APPLICABLE FOR DIALYSIS PATIEN TS. Bath Mix Operator ID - [id number] 04:20:36 Test Item Value Reference Range Interpretation Comments MAGNESIUM (BEAKER) (test code = 2.0 mg/dL 1.5-3.0 627) Bath Mix Operator ID - PURABLOOD [id number] 23:01:23 Test Item Value Reference Range Interpretation Comments CULTURE (BEAKER) (test No growth in 5 days code = 1095) The specimen volume collected for this blood culture was below the optimum (10 mL per bottle or 20 mL total). Use of lower volumes may adversely affect recovery and/or detection times of some organisms.VANCOMYCIN LEVEL, TROUGH 2021-11-02 21:04:23 Test Item Value Reference Range Interpretation Comments VANCOMYCIN TROUGH (BEAKER) (test 22.6 ug/mL 10.0-20.0 H code = 522) Bath Mix Operator ID - PURAPOCT-GLUCOSE [id number] 17:25:56 Test Item Value Reference Range Interpretation Comments POC-GLUCOSE METER 134 mg/dL 70-110 H : TESTED A T [facility] (BEAKER) (test code [address], = 1538) [place] [address] 0: Bath Mix Operator/Techni kailyn ID = [id number] for Reyn o, Willa POCT-GLUCOSE [id number] 11:40:51 Test Item Value Reference Range Interpretation Comments POC-GLUCOSE METER 112 mg/dL 70-110 H : TESTED A T [facility] (BEAKER) (test code [address], = 1538) [place] [address] 0: Bath Mix Operator/Techni kailyn ID = [id number] for Reyn o, Willa SPUTUM CULTURE + GRAM [id number] 09:31:01 Test Item Value Reference Interpretation Comments Range CULTURE (BEAKER) METHICILLIN A 4+ Methicil gillian (test code = 1095) RESISTANT resistant STAPHYLOCOCCUS Staphylococcu s AUREUS aureus Clindamycin (test R code = 10) Erythromycin (test R code = 4) Linezolid (test code S = 40) Nitrofurantoin (test S code = 23) Oxacillin (test code R = 14) Rifampin (test code = S 43) Tetracycline (test S code = 2) Trimethoprim + S Sulfamethoxazole (test code = 47) Vancomycin (test code S = 13) CULTURE (BEAKER) METHICILLIN A 4+ Methicil gillian (test code = 1095) RESISTANT resistant STAPHYLOCOCCUS Staphylococcu s AUREUS aureusof a [place] type Clindamycin (test R code = 10) Erythromycin (test R code = 4) Linezolid (test code S = 40) Nitrofurantoin (test S code = 23) Oxacillin (test code R = 14) Rifampin (test code = S 43) Tetracycline (test R code = 2) Trimethoprim + S Sulfamethoxazole (test code = 47) Vancomycin (test code S = 13) GRAM STAIN RESULT 1+ WBCs (BEAKER) (test code = 1123) GRAM STAIN RESULT 0-5 epithelial (BEAKER) (test code = cells 927520) GRAM STAIN RESULT <1+ gram negative (BEAKER) (test code = rods 248101) GRAM STAIN RESULT 1+ gram positive (BEAKER) (test code = cocci in chains, 234167) pairs and clusters 1+ Normal respiratory leslie present(MANUAL DIFFERENTIAL)2021-11-02 06:49:46 Test Item Value Reference Range Interpretation Comments WBC MORPHOLOGY (BEAKER) (test code = Normal 487) LARGE PLT(BEAKER) (test code = 2156) Present GIANT PLATELETS (BEAKER) (test code = Present 313) ANISOCYTOSIS (BEAKER) (test code = 1+ few 961) POLYCHROMATOPHILLIC RBCS(BEAKER) 1+ few (test code = 478) CBC W/PLT COUNT & AUTO [id number] 06:49:45 Test Item Value Reference Range Interpretation Comments WHITE BLOOD CELL COUNT (BEAKER) 12.1 K/ L 4.0-10.0 H (test code = 775) RED BLOOD CELL COUNT (BEAKER) 2.79 M/ L 4.00-5.00 L (test code = 761) HEMOGLOBIN (BEAKER) (test code = 8.2 GM/DL 12.0-15.5 L 410) HEMATOCRIT (BEAKER) (test code = 25.0 % 36.0-46.0 L 411) MEAN CORPUSCULAR VOLUME (BEAKER) 89.6 fL 82.0-99.0 (test code = 753) MEAN CORPUSCULAR HEMOGLOBIN 29.4 pg 27.0-33.0 (BEAKER) (test code = 751) MEAN CORPUSCULAR HEMOGLOBIN CONC 32.8 GM/DL 32.0-36.0 (BEAKER) (test code = 752) RED CELL DISTRIBUTION WIDTH 20.8 % 12.0-15.0 H (BEAKER) (test code = 412) PLATELET COUNT (BEAKER) (test code 51 K/CU MM 150-430 L = 756) MEAN PLATELET VOLUME (BEAKER) 12.6 fL 6.0-11.5 H (test code = 754) NUCLEATED RED BLOOD CELLS (BEAKER) 1 /100 WBC 0-0 H (test code = 413) NEUTROPHILS RELATIVE PERCENT 75 % (BEAKER) (test code = 429) LYMPHOCYTES RELATIVE PERCENT 16 % (BEAKER) (test code = 430) MONOCYTES RELATIVE PERCENT 6 % (BEAKER) (test code = 431) EOSINOPHILS RELATIVE PERCENT 1 % (BEAKER) (test code = 432) BASOPHILS RELATIVE PERCENT 0 % (BEAKER) (test code = 437) NEUTROPHILS ABSOLUTE COUNT 9.06 K/ L 1.80-8.00 H (BEAKER) (test code = 670) LYMPHOCYTES ABSOLUTE COUNT 1.97 K/ L 1.48-4.50 (BEAKER) (test code = 414) MONOCYTES ABSOLUTE COUNT (BEAKER) 0.76 K/ L 0.00-1.30 (test code = 415) EOSINOPHILS ABSOLUTE COUNT 0.11 K/ L 0.00-0.50 (BEAKER) (test code = 416) BASOPHILS ABSOLUTE COUNT (BEAKER) 0.02 K/ L 0.00-0.20 (test code = 417) IMMATURE GRANULOCYTES-RELATIVE 2 % 0-0 H PERCENT (BEAKER) (test code = 2801) [id number] 03:59:40 Test Item Value Reference Range Interpretation Comments PHOSPHORUS (BEAKER) (test code = 2.0 mg/dL 2.5-4.5 L 604) Bath Mix Operator ID - Priscilla TBASIC METABOLIC [id number] 03:59:39 Test Item Value Reference Range Interpretation Comments SODIUM (BEAKER) 147 meq/L 135-148 (test code = 381) POTASSIUM (BEAKER) 3.9 meq/L 3.6-5.5 (test code = 379) CHLORIDE (BEAKER) 116 meq/L 98-106 H (test code = 382) CO2 (BEAKER) (test 24 meq/L 20-29 code = 355) BLOOD UREA NITROGEN 18 mg/dL 10-26 (BEAKER) (test code = 354) CREATININE (BEAKER) 0.92 mg/dL 0.50-1.20 (test code = 358) GLUCOSE RANDOM 107 mg/dL 70-110 (BEAKER) (test code = 652) CALCIUM (BEAKER) 8.4 mg/dL 8.5-10.5 L (test code = 697) EGFR (BEAKER) (test 62 mL/min/1.73 ESTIMA JULIAN GFR IS code = 1092) sq m NOT ACCURATE CREATININE CLEARANCE IN PREDICTING GLOMERULAR FILTRATION RATE . ESTIMATED GFR I S NOT APPLICABLE FOR DIALYSIS PATIEN TS. Bath Mix Operator ID - Priscilla [id number] 03:59:39 Test Item Value Reference Range Interpretation Comments MAGNESIUM (BEAKER) (test code = 1.6 mg/dL 1.5-3.0 627) Bath Mix Operator ID - Priscilla TPOCT-GLUCOSE [id number] 18:39:41 Test Item Value Reference Range Interpretation Comments POC-GLUCOSE METER 99 mg/dL 70-110 : TESTED A T [facility] (BEAKER) (test code [address], = 1538) [facility] [address]: Bath Mix Operator/Techni kailyn ID = [id number] for [place] ba, [place] RAD, ABDOMEN/KUB, 1 VIEW [id number] 17:16:00Reason for exam:->NGT insertion [facility] MARLEE : 1960 Sex: FFINAL REPORT Abdomen one view Comparison: 11/01/2021 Reason for exam: NGT insertion Findings: Tip of NG tube projects over the gastric body, similar to the prior exam. There is mild gaseous distention of bowel. Aortoiliac stents are noted. Signed: Marlee John Verified Date/Time: 11/01/2021 17:16:19 Reading Location: [address] Consult Reading Room [id number] 16:46:04 Test Item Value Reference Range Interpretation Comments FERRITIN (BEAKER) (test code = 3096.34 ng/mL 10.00-291.00 H 361) Bath Mix Operator ID - [id number] ID - [id number] 15:50:20 Test Item Value Reference Range Interpretation Comments C-REACTIVE PROTEIN (BEAKER) (test 15.47 mg/dL 0.00-1.00 H code = 676) Bath Mix Operator ID - [id number] DEHYDROGENASE (LDH)2021-11-01 15:39:57 Test Item Value Reference Range Interpretation Comments LACTATE DEHYDROGENASE (BEAKER) (test 396 U/L 107-206 H code = 635) Bath Mix Operator ID - [id number] 15:39:35 Test Item Value Reference Range Interpretation Comments D-DIMER QUANTITATIVE 2.37 MG/L FEU <0.50 H Final Information (BEAKER) (test code = (Auto Output) 671) REGARDING D-DIMER RESULTS: The 98% NPV (Negative Predictive Value) for DVT/PE exclusion is 0.50 mg/LFEU as suggested by the project development coordinator and as approved by the FDA.POCT-GLUCOSE [id number] 12:41:43 Test Item Value Reference Range Interpretation Comments POC-GLUCOSE METER 110 mg/dL 70-110 : TESTED A T [facility] (BEAKER) (test code [address]ASEWOO [address], = 1538) [facility] [address]: Bath Mix Operator/Techni kailyn ID = [id number] for Gracie baRossanaethzel WOUND CULTURE + GRAM [id number] 09:59:13 Test Item Value Reference Range Interpretation Comments CULTURE (BEAKER) (test code 2+ Skin leslie = 1095) GRAM STAIN RESULT (BEAKER) No WBCs (test code = 1123) GRAM STAIN RESULT (BEAKER) No organisms seen (test code = 677946) RAD, ABDOMEN/KUB, 1 VIEW [id number] 09:37:00Reason for exam:->Enteric tube placement verification [facility] : 1960 Sex: FFINAL REPORT Abdomen one view Comparison: None. Reason for exam: En teric tube placement verification Findings: Tip of feeding tube projects over the expected location of gastric body. There is mild gaseous distention of small bowel and colon. Signed: Marlee John MDReportVerified Date/Time: 11/01/2021 09:37:59 Reading Location: [address] Consult Reading Room E lectronically signed by: MARLEE JOHN M.D. on 11/01/2021 09:37 AMMRSA SCREEN 2021-11-01 06:10:03 Test Item Value Reference Range Interpretation Comments CULTURE (BEAKER) A 2+ Methicil gillian resistant (test code = 1095) Staphyloc occus aureus CBC W/PLT COUNT & AUTO [id number] 05:41:15 Test Item Value Reference Range Interpretation Comments WHITE BLOOD CELL COUNT (BEAKER) 11.6 K/ L 4.0-10.0 H (test code = 775) RED BLOOD CELL COUNT (BEAKER) 2.83 M/ L 4.00-5.00 L (test code = 761) HEMOGLOBIN (BEAKER) (test code = 8.5 GM/DL 12.0-15.5 L 410) HEMATOCRIT (BEAKER) (test code = 25.4 % 36.0-46.0 L 411) MEAN CORPUSCULAR VOLUME (BEAKER) 89.8 fL 82.0-99.0 (test code = 753) MEAN CORPUSCULAR HEMOGLOBIN 30.0 pg 27.0-33.0 (BEAKER) (test code = 751) MEAN CORPUSCULAR HEMOGLOBIN CONC 33.5 GM/DL 32.0-36.0 (BEAKER) (test code = 752) RED CELL DISTRIBUTION WIDTH 20.6 % 12.0-15.0 H (BEAKER) (test code = 412) PLATELET COUNT (BEAKER) (test code 50 K/CU MM 150-430 L = 756) MEAN PLATELET VOLUME (BEAKER) 12.5 fL 6.0-11.5 H (test code = 754) NUCLEATED RED BLOOD CELLS (BEAKER) 1 /100 WBC 0-0 H (test code = 413) NEUTROPHILS RELATIVE PERCENT 76 % (BEAKER) (test code = 429) LYMPHOCYTES RELATIVE PERCENT 14 % (BEAKER) (test code = 430) MONOCYTES RELATIVE PERCENT 6 % (BEAKER) (test code = 431) EOSINOPHILS RELATIVE PERCENT 1 % (BEAKER) (test code = 432) BASOPHILS RELATIVE PERCENT 0 % (BEAKER) (test code = 437) NEUTROPHILS ABSOLUTE COUNT 8.81 K/ L 1.80-8.00 H (BEAKER) (test code = 670) LYMPHOCYTES ABSOLUTE COUNT 1.65 K/ L 1.48-4.50 (BEAKER) (test code = 414) MONOCYTES ABSOLUTE COUNT (BEAKER) 0.74 K/ L 0.00-1.30 (test code = 415) EOSINOPHILS ABSOLUTE COUNT 0.13 K/ L 0.00-0.50 (BEAKER) (test code = 416) BASOPHILS ABSOLUTE COUNT (BEAKER) 0.02 K/ L 0.00-0.20 (test code = 417) IMMATURE GRANULOCYTES-RELATIVE 2 % 0-0 H PERCENT (BEAKER) (test code = 2801) (MANUAL DIFFERENTIAL)2021-11-01 05:41:15 Test Item Value Reference Range Interpretation Comments TOTAL COUNTED (BEAKER) (test code = 1351) PLT MORPHOLOGY (BEAKER) (test Normal code = 486) DOHLE BODIES (BEAKER) (test code Present = 359) ANISOCYTOSIS (BEAKER) (test code 2+ moderate = 961) POLYCHROMATOPHILLIC RBCS(BEAKER) 1+ few (test code = 478) LACTIC ACID, [id number] 04:17:37 Test Item Value Reference Range Interpretation Comments LACTATE BLOOD VENOUS (2) (BEAKER) 2.15 mmol/L 0.50-2.00 H (test code = 2872) Bath Mix Operator ID - PURAOperator ID - PURACOMPREHENSIVE METABOLIC [id number] 03:51:34 Test Item Value Reference Range Interpretation Comments TOTAL PROTEIN 5.0 gm/dL 6.0-8.5 L (BEAKER) (test code = 770) ALBUMIN (BEAKER) 2.7 g/dL 3.5-5.0 L (test code = 1145) ALKALINE PHOSPHATASE 165 U/L 30-115 H (BEAKER) (test code = 346) BILIRUBIN TOTAL 0.7 mg/dL 0.1-1.2 (BEAKER) (test code = 377) SODIUM (BEAKER) (test 150 meq/L 135-148 H code = 381) POTASSIUM (BEAKER) 3.7 meq/L 3.6-5.5 (test code = 379) CHLORIDE (BEAKER) 115 meq/L 98-106 H (test code = 382) CO2 (BEAKER) (test 25 meq/L 20-29 code = 355) BLOOD UREA NITROGEN 21 mg/dL 10-26 (BEAKER) (test code = 354) CREATININE (BEAKER) 1.11 mg/dL 0.50-1.20 (test code = 358) GLUCOSE RANDOM 113 mg/dL 70-110 H (BEAKER) (test code = 652) CALCIUM (BEAKER) 8.3 mg/dL 8.5-10.5 L (test code = 697) AST (SGOT) (BEAKER) 19 U/L 5-40 (test code = 353) ALT (SGPT) (BEAKER) 21 U/L 5-50 (test code = 347) EGFR (BEAKER) (test 50 mL/min/1.73 ESTIMA JULIAN GFR IS code = 1092) sq m NOT ACCURATE CREATININE CLEARANCE IN PREDICTING GLOMERULAR FILTRATION RATE . ESTIMATED GFR I S NOT APPLICABLE FOR DIALYSIS PATIEN TS. Bath Mix Operator ID - PURAVANCOMYCIN LEVEL, [id number] 17:31:56 Test Item Value Reference Range Interpretation Comments VANCOMYCIN RANDOM (BEAKER) (test 8.8 ug/mL code = 523) Reference Range: No NormalsOperator ID - CLAVSKIRAD, CHEST, 1 VIEW, NON DEPT 2021-10-31 12:37:00Reason for exam:->resp failure, intubatedShould this be performed at the bedside?->Yes [facility] 1960 Sex: FFINAL REPORT History: Respiratory failure, intubation. FINDINGS: Com pared with October 30, 2021, the heart and mediastinum are stable. Patchy bilateral pulmonary airspace opacity persists and has increased. Small bilateral pleural effusions are suspected. Life-support tubes and lines appear in stable positions. No pneumothorax. Bones are osteopenic but otherwise unremarkable. IMPRESSION: 1. Increased bilateral pulmonary airspace opacities since the previous study, possibly edema or pneumonia. Otherwise, stable chest. Signed: Dominique Mcleod MDReport Verified Date/Time: 10/31/2021 12:37:23 Reading Location: [facility] Diagnostic Imaging Reading Room - [facility] 1.310.12 Destiny ctronically signed by: DOMINIQUE MLCEOD M.D. on 10/31/2021 12:37 PMVITAMIN B12 2021-10-31 11:58:29 Test Item Value Reference Range Interpretation Comments VITAMIN B12 (BEAKER) (test code = 432 pg/mL 213-816 774) Bath Mix Operator ID - ZULY WPOCT-GLUCOSE [id number] 11:17:45 Test Item Value Reference Range Interpretation Comments POC-GLUCOSE METER 130 mg/dL 70-110 H : TESTED A T [facility] (BEAKER) (test code [address], = 1538) [place] [address] 0: Bath Mix Operator/Techni kailyn ID = [id number] for Karishma Gutierrez [id number] 10:27:36 Test Item Value Reference Range Interpretation Comments MAGNESIUM (BEAKER) (test code = 2.1 mg/dL 1.5-3.0 627) Bath Mix Operator ID - LIZETT(MANUAL DIFFERENTIAL)2021-10-31 06:44:46 Test Item Value Reference Range Interpretation Comments NEUTROPHILS - REL (DIFF) (BEAKER) 67 % (test code = 1359) LYMPHOCYTES - REL (DIFF) (BEAKER) 18 % (test code = 1360) MONOCYTES - REL (DIFF) (BEAKER) 2 % (test code = 1361) EOSINOPHILS - REL (DIFF) (BEAKER) 0 % (test code = 1362) MYELOCYTES-REL (DIFF) (BEAKER) 2 % 0-0 H (test code = 1594) BANDS - REL (DIFF) (BEAKER) (test 11 % 0-10 H code = 1348) NEUTROPHILS - ABS (DIFF) (BEAKER) 6.16 K/ L 1.80-8.00 (test code = 1365) LYMPHOCYTES - ABS (DIFF) (BEAKER) 1.66 K/ L 1.48-4.50 (test code = 1366) MONOCYTES - ABS (DIFF) (BEAKER) 0.18 K/ L 0.00-1.30 (test code = 1367) EOSINOPHILS - ABS (DIFF) (BEAKER) 0.00 K/ L 0.00-0.50 (test code = 1368) BANDS-ABS (DIFF) (BEAKER) (test 1.0 K/ L 0.0-0.8 H code = 1349) MYELOCYTES-ABS (DIFF) (BEAKER) 0.18 K/ L 0.00-0.00 H (test code = 1593) TOTAL COUNTED (BEAKER) (test code = 100 1351) BANDS + SEGMENTED NEUTROPHILS 7.18 (BEAKER) (test code = 1352) WBC MORPHOLOGY (BEAKER) (test code Normal = 487) PLT MORPHOLOGY (BEAKER) (test code Normal = 486) RBC MORPHOLOGY (BEAKER) (test code Normal = 762) CBC W/PLT COUNT & AUTO [id number] 06:44:45 Test Item Value Reference Range Interpretation Comments WHITE BLOOD CELL COUNT (BEAKER) 9.2 K/ L 4.0-10.0 (test code = 775) RED BLOOD CELL COUNT (BEAKER) 2.83 M/ L 4.00-5.00 L (test code = 761) HEMOGLOBIN (BEAKER) (test code = 8.2 GM/DL 12.0-15.5 L 410) HEMATOCRIT (BEAKER) (test code = 24.0 % 36.0-46.0 L 411) MEAN CORPUSCULAR VOLUME (BEAKER) 84.8 fL 82.0-99.0 (test code = 753) MEAN CORPUSCULAR HEMOGLOBIN 29.0 pg 27.0-33.0 (BEAKER) (test code = 751) MEAN CORPUSCULAR HEMOGLOBIN CONC 34.2 GM/DL 32.0-36.0 (BEAKER) (test code = 752) RED CELL DISTRIBUTION WIDTH 19.7 % 12.0-15.0 H (BEAKER) (test code = 412) PLATELET COUNT (BEAKER) (test code 47 K/CU MM 150-430 L = 756) MEAN PLATELET VOLUME (BEAKER) 13.0 fL 6.0-11.5 H (test code = 754) NUCLEATED RED BLOOD CELLS (BEAKER) 1 /100 WBC 0-0 H (test code = 413) POCT-GLUCOSE [id number] 06:37:52 Test Item Value Reference Range Interpretation Comments POC-GLUCOSE METER 111 mg/dL 70-110 H : TESTED A [facility] (BEAKER) (test code [address] [place] [address], = 1538) [facility] [id number]: Bath Mix Operator/Techni kailyn ID = [id number] for Nedra Brady BLOOD GAS, [id number] 03:32:51 Test Item Value Reference Range Interpretation Comments PH ARTERIAL (BEAKER) (test code = 7.50 7.35-7.45 H 383) PCO2 ARTERIAL (BEAKER) (test code 31 mm Hg 35-45 L = 384) PO2 ARTERIAL (BEAKER) (test code = 129 mm Hg 80-90 H 385) O2 SATURATION ARTERIAL (BEAKER) 98.5 % 96.0-97.0 H (test code = 386) HCO3 ARTERIAL (BEAKER) (test code 24 mmol/L 21-29 = 388) BASE EXCESS ARTERIAL (BEAKER) 1.1 mmol/L -2.0-3.0 (test code = 387) PATIENT TEMPERATURE (BEAKER) (test 37.3 code = 1818) COMPREHENSIVE METABOLIC [id number] 02:29:20 Test Item Value Reference Range Interpretation Comments TOTAL PROTEIN 4.6 gm/dL 6.0-8.5 L (BEAKER) (test code = 770) ALBUMIN (BEAKER) 2.6 g/dL 3.5-5.0 L (test code = 1145) ALKALINE PHOSPHATASE 148 U/L 30-115 H (BEAKER) (test code = 346) BILIRUBIN TOTAL 1.3 mg/dL 0.1-1.2 H (BEAKER) (test code = 377) SODIUM (BEAKER) (test 155 meq/L 135-148 H code = 381) POTASSIUM (BEAKER) 3.4 meq/L 3.6-5.5 L (test code = 379) CHLORIDE (BEAKER) 120 meq/L 98-106 H (test code = 382) CO2 (BEAKER) (test 25 meq/L 20-29 code = 355) BLOOD UREA NITROGEN 27 mg/dL 10-26 H (BEAKER) (test code = 354) CREATININE (BEAKER) 1.42 mg/dL 0.50-1.20 H (test code = 358) GLUCOSE RANDOM 148 mg/dL 70-110 H (BEAKER) (test code = 652) CALCIUM (BEAKER) 8.2 mg/dL 8.5-10.5 L (test code = 697) AST (SGOT) (BEAKER) 15 U/L 5-40 (test code = 353) ALT (SGPT) (BEAKER) 14 U/L 5-50 (test code = 347) EGFR (BEAKER) (test 37 mL/min/1.73 ESTIMA JULIAN GFR IS code = 1092) sq m NOT ACCURATE CREATININE CLEARANCE IN PREDICTING GLOMERULAR FILTRATION RATE . ESTIMATED GFR I S NOT APPLICABLE FOR DIALYSIS PATIEN TS. Bath Mix Operator ID - NLYLEHEMOGLOBIN AND [id number] 02:28:13 Test Item Value Reference Range Interpretation Comments HEMOGLOBIN (BEAKER) (test code = 8.2 GM/DL 12.0-15.5 L 410) HEMATOCRIT (BEAKER) (test code = 24.0 % 36.0-46.0 L 411) LACTIC ACID, [id number] 02:22:44 Test Item Value Reference Range Interpretation Comments LACTATE BLOOD VENOUS (2) (BEAKER) 2.09 mmol/L 0.50-2.00 H (test code = 2872) Bath Mix Operator ID - NLYLEPOCT-GLUCOSE [id number] 00:02:48 Test Item Value Reference Range Interpretation Comments POC-GLUCOSE METER 97 mg/dL 70-110 : TESTED A T [facility] (BEAKER) (test code = [address], 2396) [place] [address]: Bath Mix Operator/Techni kailyn ID = [id number] for Nedra Brady [id number] 18:21:50 Test Item Value Reference Range Interpretation Comments FERRITIN (BEAKER) (test code = 1752.17 ng/mL 10.00-291.00 H 361) Bath Mix Operator ID - LRIE66LPN/FREE T4 IF [id number] 18:05:48 Test Item Value Reference Range Interpretation Comments THYROID STIMULATING HORMONE 0.976 uIU/mL 0.350-5.500 (BEAKER) (test code = 772) Bath Mix Operator ID - EUYW14C-LUIOYQGH [id number] 17:52:55 Test Item Value Reference Range Interpretation Comments C-REACTIVE PROTEIN (BEAKER) (test 16.53 mg/dL 0.00-1.00 H code = 676) Bath Mix Operator ID - NOLILACTATE DEHYDROGENASE (LDH)2021-10-30 17:48:18 Test Item Value Reference Range Interpretation Comments LACTATE DEHYDROGENASE (BEAKER) (test 193 U/L 107-206 code = 635) Bath Mix Operator ID - [id number] 17:48:18 Test Item Value Reference Range Interpretation Comments MAGNESIUM (BEAKER) (test code = 2.2 mg/dL 1.5-3.0 627) Bath Mix Operator ID - [id number] 17:42:20 Test Item Value Reference Range Interpretation Comments FIBRINOGEN LEVEL (BEAKER) (test 175 mg/dl 225-434 L code = 658) [id number] 17:40:53 Test Item Value Reference Range Interpretation Comments D-DIMER QUANTITATIVE 1.70 MG/L FEU <0.50 H Final Information ([facility]) (test code = (Auto Output) 671) REGARDING D-DIMER RESULTS: The 98% NPV (Negative Predictive Value) for DVT/PE exclusion is 0.50 mg/LFEU as suggested by the project development coordinator and as approved by the FDA.POCT-GLUCOSE [id number] 17:39:21 Test Item Value Reference Range Interpretation Comments POC-GLUCOSE METER 122 mg/dL 70-110 H : TESTED A T [facility] (LionsideAKER) (test code [address], = 1538) [place] [address]: Bath Mix Operator/Techni kailyn ID = [id number] for Clav Arely downey HEMOGLOBIN AND [id number] 17:32:12 Test Item Value Reference Range Interpretation Comments HEMOGLOBIN (BEAKER) (test code = 8.3 GM/DL 12.0-15.5 L 410) HEMATOCRIT (BEAKER) (test code = 24.1 % 36.0-46.0 L 411) BLOOD CULTURE IDENTIFICATION [id number] 15:38:59 Test Item Value Reference Interpretation Comments Range LISTERIA MONOCYTOGENES Not detected Not detected (test code = 5825264) STAPHYLOCOCCUS (test Detected Not detected A Coagula se negative code = 3700987) Staph specie s (CoNS)- methici llin susceptibleFirs t-gillian e therapy: Cefa zolin or Oxacillin (Oxacillin pref erred if HAND SANDER involvem ent) MecA NOT DETECTEDPossibl e contamination. The likelihood of pathogenicity i s increased if th e organism is obs erved in multiple blo od cultures obtain ed from separate venipunctures.R efere nce Range: Not Detected STAPHYLOCOCCUS AUREUS Not detected Not detected (test code = 1450509) STREPTOCOCCUS (test Not detected Not detected code = 0220727) STREPTOCOCCUS Not detected Not detected AGALACTIAE (GROUP B) (test code = 5892683) STREPTOCOCCUS Not detected Not detected PNEUMONIAE (test code = 1177997) STREPTOCOCCUS PYOGENES Not detected Not detected (GROUP A) (test code = 0722263) ACINETOBACTER BAUMANNII Not detected Not detected (test code = 8474616) HAEMOPHILUS INFLUENZAE Not detected Not detected (test code = 5629773) NEISSERIA MENINGITIDIS Not detected Not detected (test code = 1363337) ENTEROBACTERIACEAE Not detected Not detected (test code = 3681210) ENTEROBACTER CLOACOE Not detected Not detected COMPLEX (test code = 4832904) KLEBSIELLA OXYTOCA Not detected Not detected (test code = 1544654) KLEBSIELLA PNEUMONIAE Not detected Not detected (test code = 1650) PROTEUS (test code = Not detected Not detected 3562267) SERRATIA MARCESCENS Not detected Not detected (test code = 8579426) JAMES ALBICANS (test Not detected Not detected code = 3713567) JAMES GLABRATA (test Not detected Not detected code = 8130955) JAMES KRUSEI (test Not detected Not detected code = 3303415) JAMES PARAPSILOSIS Not detected Not detected (test code = 3279160) JAMES TROPICALIS Not detected Not detected (test code = 2538799) ESCHERICHIA COLI (test Not detected Not detected code = 6872196) METHICILLIN-RESISTANCE Not detected Not detected Note: Antimicrobial GENE (test code = resistance can occur 0048593) via multiple mechanisms. A N ot Detected result for the Azuro[employer] antimicrobial resistance gene assays does not indicate antimicrobial susceptibility. Subculturing is required for sp ecies identification and susceptibility testing of isol ates. VANCOMYCIN-RESISTANCE GENE (test code = 0548643) CARBAPENEM-RESISTANCE GENE (test code = 0949324) ENTEROCOCCUS-BEAKER Not detected Not detected (test code = 8220261) PSEUDOMONAS Not detected Not detected AERUGINOSA-BEAKER (test code = 7729410) Other bacteria and resistance markers not targeted by this PCR panel cannot be excluded; therefore clinical correlation and follow up of serology, culture results, and other molecular studies is required. The results are not intended to be used as the sole means for clinical diagnosis or patient management decisions. This sample was tested at the [facility] using the Fanminder Blood Culture ID Panel. It is FDA cleared and has been verified and approved by the [facility] for clinical use. This laboratory is CLIA-certified and College ofAmerican Pathologists (CAP)-accredited to perform high complexity testing.POCT-GLUCOSE [id number] 14:42:52 Test Item Value Reference Range Interpretation Comments POC-GLUCOSE METER 163 mg/dL 70-110 H : TESTED A T [facility] (BEAKER) (test code [address], = 1538) [facility] [address]: Bath Mix Operator/Techni kailyn ID = [id number] for Kellen Romero CT, [id number] 13:29:00Unlisted Reason for Exam - Click Yes and Enter Reason Below->NoIs this for enterography?->NoWill this procedure require oral contrast?->No [facility] MARLEE : 1960 Sex: FFINAL REPORT HISTORY : Pneumonia, abdominal pain TECHNIQUE : Multiple axial images of the chest, abdomen and pelvis were performed with 5 mm slice thickness without the use of contrast material from the lung apices to the pubic symphysis. Coronal and sagittal reformats were reviewed. This exam was performed according to our departmental dose optimization program which includes automated exposure control, adjustment of the mA and/or kV according to patient size and/or use of iterative reconstructive technique. COMPARISON : None FINDINGS: The visualized structures within the base of the neck demonstrate no significant abnormalities. Partially visualized left internal jugular central venous catheter identified with tip terminating within the SVC. The thoracic aorta is normal course and caliber. The heart is not enlarged. No abnormal pericardial fluid is present. Normal sized to mildly prominent mediastinal lymph nodes are noted which are nonspecific and possibly reactive. A precarinal lymph node measures 1 cm in short axis (axial image 20). There is no abnormal lymph node enlargement within the chest. Endotracheal tube identified with tip terminating above the billy. There are small bilateral pleural effusions present. There is atelectasis/consolidation of thelung bases with additional patchy groundglass opacities identified within the aerated lungs bilaterally. There is no evidence for pneumothorax. The liver is diffusely decreased in attenuation suggestive of fatty infiltration. Hyperdense material noted within the lumen of the mildly distended gallbladder which may reflect biliary sludge. There is no evidence for radiopaque stones or pericholecystic fluid. There is no biliary ductal dilatation. Enteric tube noted with distal tip turning within the proximal stomach. The stomach is otherwise unremarkable. Granulomatous calcifications are noted within the spleen. The right adrenal gland is unremarkable. 1.7 cm nodule identified within the left adrenal gland with attenuation values compatible with a benign adenoma. The kidneys are normal in size and location. There is no evidence for nephrolithiasis or hydronephrosis. No ureteral stone or dilatation is appreciated. The urinary bladder is collapsed around a Tsai catheter. The uterus is surgically absent. No abnormal adnexal masses are identified. The abdominal aorta is normal course and caliber. Bilateral common iliac arterial stents are noted in place. The IVC is normal in caliber. Mesenteric fat s tranding and increased normal upper normal sized lymph nodes noted within the mid upper abdomen adjacent to the duodenum/pancreatic head. The pancreas is otherwise unremarkable. The remaining visualized loops of small and large bowel demonstrate no evidence of obstruction or inflammation. Trace volumeof ascites noted. There is no intraperitoneal free air. The osseous structures demonstrate no evidence for acute fracture or destructive process. There is body wall edema present. Impression:Small bilateral pleural effusions and bibasilar atelectasis/consolidation. Additional patchy groundglass opacities noted within the aerated lungs bilaterally. Findings are nonspecific but can be seen in the setting of edema or a multifocal infectious process. Mesenteric fat stranding and mildly prominent lymphnodes noted within the mid upper abdomen adjacent to the duodenum/pancreatic head. Findings may reflect duodenitis. An uncomplicated pancreatitis could have a similar appearance. No evidence for bowel obstruction, perforation, or organized fluid collection formation. CT findings suggestive of hepatic steatosis. Suspected biliary sludge noted within the gallbladder without evidence for radiopaque stones, pericholecystic fluid, or biliary ductal dilatation. 1.7 cm benign left adrenal adenoma. Trace ascites. Signed: Yfn Trejo MDReport Verified Date/Time: 10/30/2021 13:29:01 Reading Location: [facility] Diagnostic Imaging Reading Room - [facility] 1.310.12 CT, CHEST, WITHOUT [id number] 13:29:00Unlisted Reason for Exam - Click Yes and Enter Reason Below->No [facility]ENTER[facility]: TYRESE PUCKETT : 1960 Sex: FFINAL REPORT HISTORY : Pneumonia, abdominal pain TECHNIQUE : Multiple axial images of the chest, abdomen and pelvis were performed with 5 mm slice thickness without the use of contrast material from the lung apices to the pubic symphysis. Coronal and sagittal reformats were reviewed. This exam was performed according to our departmental dose optimization program which includes automated exposure control, adjustment of the mA and/or kV according to patient size and/or use of iterative reconstructive technique. COMPARISON : None FINDINGS: The visualized structures within the base of the neck demonstrate no significant abnormalities. Partially visualized left internal jugular central venous catheter identified with tip terminating within the SVC. The thoracic aorta is normal course and caliber. The heart is not enlarged. No abnormal pericardial fluid is present. Normal sized to mildly prominent mediastinal lymph nodes are noted which are nonspecific and possibly reactive. A precarinal lymph node measures 1 cm in short axis (axial image 20). There is no abnormal lymph node enlargement within the chest. Endotracheal tube identified with tip terminating above the billy. There are small bilateral pleural effusions present. There is atelectasis/consolidation of thelung bases with additional patchy groundglass opacities identified within the aerated lungs bilaterally. There is no evidence for pneumothorax. The liver is diffusely decreased in attenuation suggestive of fatty infiltration. Hyperdense material noted within the lumen of the mildly distended gallbladder which may reflect biliary sludge. There is no evidence for radiopaque stones or pericholecystic fluid. There is no biliary ductal dilatation. Enteric tube noted with distal tip turning within the proximal stomach. The stomach is otherwise unremarkable. Granulomatous calcifications are noted within the spleen. The right adrenal gland is unremarkable. 1.7 cm nodule identified within the left adrenal gland with attenuation values compatible with a benign adenoma. The kidneys are normal in size and location. There is no evidence for nephrolithiasis or hydronephrosis. No ureteral stone or dilatation is appreciated. The urinary bladder is collapsed around a Tsai catheter. The uterus is surgically absent. No abnormal adnexal masses are identified. The abdominal aorta is normal course and caliber. Bilateral common iliac arterial stents are noted in place. The IVC is normal in caliber. Mesenteric fat s tranding and increased normal upper normal sized lymph nodes noted within the mid upper abdomen adjacent to the duodenum/pancreatic head. The pancreas is otherwise unremarkable. The remaining visualized loops of small and large bowel demonstrate no evidence of obstruction or inflammation. Trace volumeof ascites noted. There is no intraperitoneal free air. The osseous structures demonstrate no evidence for acute fracture or destructive process. There is body wall edema present. Impression:Small bilateral pleural effusions and bibasilar atelectasis/consolidation. Additional patchy groundglass opacities noted within the aerated lungs bilaterally. Findings are nonspecific but can be seen in the setting of edema or a multifocal infectious process. Mesenteric fat stranding and mildly prominent lymphnodes noted within the mid upper abdomen adjacent to the duodenum/pancreatic head. Findings may reflect duodenitis. An uncomplicated pancreatitis could have a similar appearance. No evidence for bowel obstruction, perforation, or organized fluid collection formation. CT findings suggestive of hepatic steatosis. Suspected biliary sludge noted within the gallbladder without evidence for radiopaque stones, pericholecystic fluid, or biliary ductal dilatation. 1.7 cm benign left adrenal adenoma. Trace ascites. Signed: Yfn Trejo MDReport Verified Date/Time: 10/30/2021 13:29:01 Reading Location: [facility] Diagnostic Imaging Reading Room - [facility] 1.310.12 BLOOD GAS, [id number] 13:25:16 Test Item Value Reference Range Interpretation Comments PH VENOUS (BEAKER) (test code = 7.39 7.32-7.42 701) PCO2 VENOUS (BEAKER) (test code = 42 mm Hg 41-51 755) PO2 VENOUS (BEAKER) (test code = 35 mm Hg 25-40 702) O2 SATURATION VENOUS (BEAKER) 68.6 % 40.0-70.0 (test code = 703) HCO3 VENOUS (BEAKER) (test code = 25 mmol/L 21-29 705) BASE EXCESS VENOUS (BEAKER) (test -0.3 mmol/L -2.0-3.0 code = 704) PATIENT TEMPERATURE (BEAKER) 37.0 (test code = 1818) [id number] 12:10:18 Test Item Value Reference Range Interpretation Comments PROTIME (BEAKER) (test 12.3 seconds 9.8-12.0 H Final Information code = 759) (Auto Output) INR (BEAKER) (test 1.12 See_Comment Final Inf ormation code = 370) (Auto Output) [Automated mess age] The system Naow generated this result transmit julian reference range : <=5.90. The reference range was not used to interpret this result as normal/abnormal . PARTIAL THROMBOPLASTIN 60.3 seconds 25.8-34.5 H Final Information TIME (BEAKER) (test (Auto Ou tput) code = 760) RECOMMENDED COUMADIN/WARFARIN INR THERAPY RANGESSTANDARD DOSE: 2.0 - 3.0 Includes: PROPHYLAXIS forvenous thrombosis, systemic embolization; TREATMENT for venous thrombosis and/or pulmonary embolus.HIGH RISK: Target INR is 2.5-3.5 for patients with mechanical heart valves.(MANUAL DIFFERENTIAL)2021-10-30 12:00:11 Test Item Value Reference Range Interpretation Comments NEUTROPHILS - REL (DIFF) (BEAKER) 76 % (test code = 1359) LYMPHOCYTES - REL (DIFF) (BEAKER) 15 % (test code = 1360) MONOCYTES - REL (DIFF) (BEAKER) 2 % (test code = 1361) BANDS - REL (DIFF) (BEAKER) (test 7 % 0-10 code = 1348) NEUTROPHILS - ABS (DIFF) (BEAKER) 7.37 K/ L 1.80-8.00 (test code = 1365) LYMPHOCYTES - ABS (DIFF) (BEAKER) 1.46 K/ L 1.48-4.50 L (test code = 1366) MONOCYTES - ABS (DIFF) (BEAKER) 0.19 K/ L 0.00-1.30 (test code = 1367) BANDS-ABS (DIFF) (BEAKER) (test 0.7 K/ L 0.0-0.8 code = 1349) TOTAL COUNTED (BEAKER) (test code = 100 1351) BANDS + SEGMENTED NEUTROPHILS 8.05 (BEAKER) (test code = 1352) WBC MORPHOLOGY (BEAKER) (test code Normal = 487) PLT MORPHOLOGY (BEAKER) (test code Normal = 486) RBC MORPHOLOGY (BEAKER) (test code Normal = 762) CBC W/PLT COUNT & AUTO [id number] 12:00:10 Test Item Value Reference Range Interpretation Comments WHITE BLOOD CELL COUNT (BEAKER) 9.7 K/ L 4.0-10.0 (test code = 775) RED BLOOD CELL COUNT (BEAKER) 2.30 M/ L 4.00-5.00 L (test code = 761) HEMOGLOBIN (BEAKER) (test code = 6.8 GM/DL 12.0-15.5 L 410) HEMATOCRIT (BEAKER) (test code = 19.8 % 36.0-46.0 LL 411) MEAN CORPUSCULAR VOLUME (BEAKER) 86.1 fL 82.0-99.0 (test code = 753) MEAN CORPUSCULAR HEMOGLOBIN 29.6 pg 27.0-33.0 (BEAKER) (test code = 751) MEAN CORPUSCULAR HEMOGLOBIN CONC 34.3 GM/DL 32.0-36.0 (BEAKER) (test code = 752) RED CELL DISTRIBUTION WIDTH 20.6 % 12.0-15.0 H (BEAKER) (test code = 412) PLATELET COUNT (BEAKER) (test code 54 K/CU MM 150-430 L = 756) MEAN PLATELET VOLUME (BEAKER) 12.0 fL 6.0-11.5 H (test code = 754) NUCLEATED RED BLOOD CELLS (BEAKER) 1 /100 WBC 0-0 H (test code = 413) POCT-GLUCOSE [id number] 11:18:04 Test Item Value Reference Range Interpretation Comments POC-GLUCOSE METER 118 mg/dL 70-110 H : TESTED A T [facility] (BEAKER) (test code [address], = 1538) [place] [address]: Bath Mix Operator/Techni kailyn ID = [id number] for Clav eria, Arely LACTIC ACID, [id number] 09:30:48 Test Item Value Reference Range Interpretation Comments LACTATE BLOOD VENOUS (2) (BEAKER) 3.42 mmol/L 0.50-2.00 H (test code = 2872) Bath Mix Operator ID - NOLICALCIUM, [id number] 09:19:23 Test Item Value Reference Range Interpretation Comments CALCIUM IONIZED (BEAKER) (test 1.01 mmol/L 1.12-1.27 L code = 698) PH, BLOOD (BEAKER) (test code = 7.43 1810) CBC W/PLT COUNT & AUTO [id number] 07:55:29 Test Item Value Reference Range Interpretation Comments WHITE BLOOD CELL COUNT (BEAKER) 8.2 K/ L 4.0-10.0 (test code = 775) RED BLOOD CELL COUNT (BEAKER) 2.37 M/ L 4.00-5.00 L (test code = 761) HEMOGLOBIN (BEAKER) (test code = 7.1 GM/DL 12.0-15.5 L 410) HEMATOCRIT (BEAKER) (test code = 20.3 % 36.0-46.0 LL 411) MEAN CORPUSCULAR VOLUME (BEAKER) 85.7 fL 82.0-99.0 (test code = 753) MEAN CORPUSCULAR HEMOGLOBIN 30.0 pg 27.0-33.0 (BEAKER) (test code = 751) MEAN CORPUSCULAR HEMOGLOBIN CONC 35.0 GM/DL 32.0-36.0 (BEAKER) (test code = 752) RED CELL DISTRIBUTION WIDTH 20.8 % 12.0-15.0 H (BEAKER) (test code = 412) PLATELET COUNT (BEAKER) (test code 57 K/CU MM 150-430 L = 756) MEAN PLATELET VOLUME (BEAKER) 12.9 fL 6.0-11.5 H (test code = 754) NUCLEATED RED BLOOD CELLS (BEAKER) 1 /100 WBC 0-0 H (test code = 413) (MANUAL DIFFERENTIAL)2021-10-30 07:55:29 Test Item Value Reference Range Interpretation Comments NEUTROPHILS - REL (DIFF) (BEAKER) 77 % (test code = 1359) LYMPHOCYTES - REL (DIFF) (BEAKER) 20 % (test code = 1360) MONOCYTES - REL (DIFF) (BEAKER) 3 % (test code = 1361) EOSINOPHILS - REL (DIFF) (BEAKER) 0 % (test code = 1362) BASOPHILS - REL (DIFF) (BEAKER) 0 % (test code = 1363) NEUTROPHILS - ABS (DIFF) (BEAKER) 6.31 K/ L 1.80-8.00 (test code = 1365) LYMPHOCYTES - ABS (DIFF) (BEAKER) 1.64 K/ L 1.48-4.50 (test code = 1366) MONOCYTES - ABS (DIFF) (BEAKER) 0.25 K/ L 0.00-1.30 (test code = 1367) EOSINOPHILS - ABS (DIFF) (BEAKER) 0.00 K/ L 0.00-0.50 (test code = 1368) BASOPHILS - ABS (DIFF) (BEAKER) 0.00 K/ L 0.00-0.20 (test code = 1369) TOTAL COUNTED (BEAKER) (test code = 100 1351) WBC MORPHOLOGY (BEAKER) (test code Normal = 487) PLT MORPHOLOGY (BEAKER) (test code Normal = 486) RBC MORPHOLOGY (BEAKER) (test code Normal = 762) COMPREHENSIVE METABOLIC [id number] 05:23:03 Test Item Value Reference Range Interpretation Comments TOTAL PROTEIN 5.0 gm/dL 6.0-8.5 L (BEAKER) (test code = 770) ALBUMIN (BEAKER) 2.9 g/dL 3.5-5.0 L (test code = 1145) ALKALINE PHOSPHATASE 123 U/L 30-115 H (BEAKER) (test code = 346) BILIRUBIN TOTAL 1.2 mg/dL 0.1-1.2 (BEAKER) (test code = 377) SODIUM (BEAKER) (test 148 meq/L 135-148 code = 381) POTASSIUM (BEAKER) 3.4 meq/L 3.6-5.5 L (test code = 379) CHLORIDE (BEAKER) 112 meq/L 98-106 H (test code = 382) CO2 (BEAKER) (test 24 meq/L 20-29 code = 355) BLOOD UREA NITROGEN 36 mg/dL 10-26 H (BEAKER) (test code = 354) CREATININE (BEAKER) 1.99 mg/dL 0.50-1.20 H (test code = 358) GLUCOSE RANDOM 140 mg/dL 70-110 H (BEAKER) (test code = 652) CALCIUM (BEAKER) 7.2 mg/dL 8.5-10.5 L (test code = 697) AST (SGOT) (BEAKER) 11 U/L 5-40 (test code = 353) ALT (SGPT) (BEAKER) 14 U/L 5-50 (test code = 347) EGFR (BEAKER) (test 25 mL/min/1.73 ESTIMA JULIAN GFR IS code = 1092) sq m NOT ACCURATE CREATININE CLEARANCE IN PREDICTING GLOMERULAR FILTRATION RATE . ESTIMATED GFR I S NOT APPLICABLE FOR DIALYSIS PATIEN TS. Bath Mix Operator ID - CHOPZRAD, CHEST, 1 VIEW, NON [id number] 01:53:00Reason for exam:->resp failure, intubatedShould this be performed at the bedside?->Yes[facility] : 1960 Sex: FFINAL REPORT RAD, CHEST, 1 VIEW, NON DEPT INDICATION: resp failure, intubated COMPARISON: Exam from seven hours prior FINDINGS: Portable frontal view of the chest. IMPRESSION: Support Lines: Stable. Lungs and pleura: Unchanged bibasilar parenchymal opacities. No new consolidation. No pneumothorax. Heart and mediastinum: Stable contours. Additional findings: None. Signed: Shelley Clarke Verified Date/Time: 10/30/2021 01:53:42 LITHIUM LEVEL 2021-10-29 22:09:55 Test Item Value Reference Range Interpretation Comments LITHIUM LEVEL (BEAKER) (test code = < mmol/L 0.8-1.2 L 630) Bath Mix Operator ID - BSPOCT-GLUCOSE [id number] 18:06:03 Test Item Value Reference Range Interpretation Comments POC-GLUCOSE METER 142 mg/dL 70-110 H : TESTED A T [facility] (BEAKER) (test code [address], = 1538) [facility] [address]: Bath Mix Operator/Techni kailyn ID = [id number] for Arely Soto RAD, CHEST, 1 VIEW, NON [id number] 17:24:00Reason for exam:->post line placementShould this be performed at the bedside?->Yes [facility] : 1960 Sex: FFINAL REPORT Exam: RAD, CHEST, 1 VIEW, NON DEPTDate: 10/29/2021 5:21PM Indication: Line placement Comparison: CXR of the prior day FINDINGS: Lines/Tubes:Interval placement of left IJ central venous catheter with tip in the SVC. Remaining support lines and tubes unchanged. Lungs:The lungs are well- inflated. Mild bibasilar subsegmental atelectasis. Pleura:New trace bilateral pleural effusions. No pneumothorax. Heart/Mediastinum:The cardiomediastinal silhouette is stable in size and contour. Bones/Soft Tissues: No acute osseous injury. Abdomen: No free air below the diaphragm. IMPRESSION:Left IJ central venous catheter terminates in the SVC. New trace bilateral pleural effusions and bibasilar opacities, most likely subsegmental atelectasis. Signed: Abby Lucas [facility] Verified Date/Time: 10/29/2021 17:24:25 LACTIC ACID, [id number] 16:55:21 Test Item Value Reference Range Interpretation Comments LACTATE BLOOD VENOUS (2) (BEAKER) 3.49 mmol/L 0.50-2.00 H (test code = 2872) Bath Mix Operator ID - [id number] 14:40:58 Test Item Value Reference Range Interpretation Comments MAGNESIUM (BEAKER) (test code = 1.8 mg/dL 1.5-3.0 627) Bath Mix Operator ID - BRUCEBASIC METABOLIC [id number] 12:22:13 Test Item Value Reference Range Interpretation Comments SODIUM (BEAKER) 143 meq/L 135-148 (test code = 381) POTASSIUM (BEAKER) 3.2 meq/L 3.6-5.5 L (test code = 379) CHLORIDE (BEAKER) 107 meq/L 98-106 H (test code = 382) CO2 (BEAKER) (test 20 meq/L 20-29 code = 355) BLOOD UREA NITROGEN 40 mg/dL 10-26 H (BEAKER) (test code = 354) CREATININE (BEAKER) 2.24 mg/dL 0.50-1.20 H (test code = 358) GLUCOSE RANDOM 136 mg/dL 70-110 H (BEAKER) (test code = 652) CALCIUM (BEAKER) 6.5 mg/dL 8.5-10.5 L (test code = 697) EGFR (BEAKER) (test 22 mL/min/1.73 ESTIMA JULIAN GFR IS code = 1092) sq m NOT ACCURATE CREATININE CLEARANCE IN PREDICTING GLOMERULAR FILTRATION RATE . ESTIMATED GFR I S NOT APPLICABLE FOR DIALYSIS PATIEN TS. Bath Mix Operator ID - BRUCELACTIC ACID, [id number] 12:20:30 Test Item Value Reference Range Interpretation Comments LACTATE BLOOD VENOUS (2) (BEAKER) 5.64 mmol/L 0.50-2.00 HH (test code = 2872) Bath Mix Operator ID - BRUCEHEMOGLOBIN AND [id number] 12:08:14 Test Item Value Reference Range Interpretation Comments HEMOGLOBIN (BEAKER) (test code = 9.5 GM/DL 12.0-15.5 L 410) HEMATOCRIT (BEAKER) (test code = 26.6 % 36.0-46.0 L 411) POCT-GLUCOSE [id number] 11:51:48 Test Item Value Reference Range Interpretation Comments POC-GLUCOSE METER 128 mg/dL 70-110 H : TESTED A T [facility] (BEAKER) (test code VALERIAWOO [address], = 1538) [facility] [id number]: Bath Mix Operator/Techni kailyn ID = [id number] for Clav eria Arely RAPID DRUG SCREEN, [id number] 11:21:47 Test Item Value Reference Range Interpretation Comments BARBITURATE URINE (BEAKER) (test Negative Negative code = 725) BENZODIAZEPINE SCREEN URINE (BEAKER) Positive Negative A (test code = 726) COCAINE (METAB.) SCREEN (BEAKER) Negative Negative (test code = 1164) OPIATE SCREEN URINE (BEAKER) (test Negative Negative code = 734) CANNABINOID SCREEN URINE (BEAKER) Negative Negative (test code = 727) AMPH/METHAMPH SCREEN (BEAKER) (test Negative Negative code = 1438) PHENCYCLIDINE SCREEN URINE (BEAKER) Negative Negative (test code = 608) PH UA (BEAKER) (test code = 467) 6.0 5.0-8.0 DRUG CUTOFF CONC.Cocaine 300 ng/mLCannabinoid 50 ng/mLBenzodiazepine 200 ng/mLBarbiturate 200 ng/mLPhencyclidine 25 ng/mLOpiate 300 ng/mLAmphetamine/ 1000 ng/mL MethamphetamineThis assay provides an unconfirmed qualitative test result for the clinical management of patients in emergency situations. Chain of custody not maintained. Some pcqv-xit-wohmhmq medications, as well as adulterants, may cause inaccurate results. Clinical correlation should be applied. A more comprehensive drug screen or confirmation of a detected drug may be performed upon request.Bath Mix Operator ID - BRUCEBLOOD GAS, [id number] 06:03:09 Test Item Value Reference Range Interpretation Comments PH ARTERIAL (BEAKER) (test code = 7.46 7.35-7.45 H 383) PCO2 ARTERIAL (BEAKER) (test code 30 mm Hg 35-45 L = 384) PO2 ARTERIAL (BEAKER) (test code 147 mm Hg 80-90 H = 385) O2 SATURATION ARTERIAL (BEAKER) 99.2 % 96.0-97.0 H (test code = 386) HCO3 ARTERIAL (BEAKER) (test code 21 mmol/L 21-29 = 388) BASE EXCESS ARTERIAL (BEAKER) -2.0 mmol/L -2.0-3.0 (test code = 387) PATIENT TEMPERATURE (BEAKER) 36.2 (test code = 1818) COMPREHENSIVE METABOLIC [id number] 02:25:30 Test Item Value Reference Range Interpretation Comments TOTAL PROTEIN 5.1 gm/dL 6.0-8.5 L (BEAKER) (test code = 770) ALBUMIN (BEAKER) 1.7 g/dL 3.5-5.0 L (test code = 1145) ALKALINE PHOSPHATASE 200 U/L 30-115 H (BEAKER) (test code = 346) BILIRUBIN TOTAL 1.4 mg/dL 0.1-1.2 H (BEAKER) (test code = 377) SODIUM (BEAKER) (test 141 meq/L 135-148 code = 381) POTASSIUM (BEAKER) 4.0 meq/L 3.6-5.5 (test code = 379) CHLORIDE (BEAKER) 107 meq/L 98-106 H (test code = 382) CO2 (BEAKER) (test 17 meq/L 20-29 L code = 355) BLOOD UREA NITROGEN 38 mg/dL 10-26 H (BEAKER) (test code = 354) CREATININE (BEAKER) 2.24 mg/dL 0.50-1.20 H (test code = 358) GLUCOSE RANDOM 174 mg/dL 70-110 H (BEAKER) (test code = 652) CALCIUM (BEAKER) 6.4 mg/dL 8.5-10.5 L (test code = 697) AST (SGOT) (BEAKER) 21 U/L 5-40 (test code = 353) ALT (SGPT) (BEAKER) 19 U/L 5-50 (test code = 347) EGFR (BEAKER) (test 22 mL/min/1.73 ESTIMA JULIAN GFR IS code = 1092) sq m NOT ACCURATE CREATININE CLEARANCE IN PREDICTING GLOMERULAR FILTRATION RATE . ESTIMATED GFR I S NOT APPLICABLE FOR DIALYSIS PATIEN TS. Bath Mix Operator ID - UOIJ20RAODET ACID, [id number] 02:09:33 Test Item Value Reference Range Interpretation Comments LACTATE BLOOD VENOUS (2) (BEAKER) 5.62 mmol/L 0.50-2.00 HH (test code = 2872) Bath Mix Operator ID - [id number] W/PLT COUNT & AUTO [id number] 01:55:22 Test Item Value Reference Range Interpretation Comments WHITE BLOOD CELL COUNT (BEAKER) 9.4 K/ L 4.0-10.0 (test code = 775) RED BLOOD CELL COUNT (BEAKER) 3.53 M/ L 4.00-5.00 L (test code = 761) HEMOGLOBIN (BEAKER) (test code = 10.3 GM/DL 12.0-15.5 L 410) HEMATOCRIT (BEAKER) (test code = 30.2 % 36.0-46.0 L 411) MEAN CORPUSCULAR VOLUME (BEAKER) 85.6 fL 82.0-99.0 (test code = 753) MEAN CORPUSCULAR HEMOGLOBIN 29.2 pg 27.0-33.0 (BEAKER) (test code = 751) MEAN CORPUSCULAR HEMOGLOBIN CONC 34.1 GM/DL 32.0-36.0 (BEAKER) (test code = 752) RED CELL DISTRIBUTION WIDTH 19.6 % 12.0-15.0 H (BEAKER) (test code = 412) PLATELET COUNT (BEAKER) (test 115 K/CU MM 150-430 L code = 756) MEAN PLATELET VOLUME (BEAKER) 11.5 fL 6.0-11.5 (test code = 754) NUCLEATED RED BLOOD CELLS 0 /100 WBC 0-0 (BEAKER) (test code = 413) NEUTROPHILS RELATIVE PERCENT 76 % (BEAKER) (test code = 429) LYMPHOCYTES RELATIVE PERCENT 17 % (BEAKER) (test code = 430) MONOCYTES RELATIVE PERCENT 5 % (BEAKER) (test code = 431) EOSINOPHILS RELATIVE PERCENT 0 % (BEAKER) (test code = 432) BASOPHILS RELATIVE PERCENT 0 % (BEAKER) (test code = 437) NEUTROPHILS ABSOLUTE COUNT 7.17 K/ L 1.80-8.00 (BEAKER) (test code = 670) LYMPHOCYTES ABSOLUTE COUNT 1.63 K/ L 1.48-4.50 (BEAKER) (test code = 414) MONOCYTES ABSOLUTE COUNT (BEAKER) 0.48 K/ L 0.00-1.30 (test code = 415) EOSINOPHILS ABSOLUTE COUNT 0.04 K/ L 0.00-0.50 (BEAKER) (test code = 416) BASOPHILS ABSOLUTE COUNT (BEAKER) 0.03 K/ L 0.00-0.20 (test code = 417) IMMATURE GRANULOCYTES-RELATIVE 1 % 0-0 H PERCENT (BEAKER) (test code = 2801) HEMOGLOBIN AND [id number] 01:55:11 Test Item Value Reference Range Interpretation Comments HEMOGLOBIN (BEAKER) (test code = 10.3 GM/DL 12.0-15.5 L 410) HEMATOCRIT (BEAKER) (test code = 30.2 % 36.0-46.0 L 411) BLOOD GAS, [id number] 00:15:15 Test Item Value Reference Range Interpretation Comments PH ARTERIAL (BEAKER) (test code = 7.41 7.35-7.45 383) PCO2 ARTERIAL (BEAKER) (test code 31 mm Hg 35-45 L = 384) PO2 ARTERIAL (BEAKER) (test code 193 mm Hg 80-90 H = 385) O2 SATURATION ARTERIAL (BEAKER) 99.2 % 96.0-97.0 H (test code = 386) HCO3 ARTERIAL (BEAKER) (test code 19 mmol/L 21-29 L = 388) BASE EXCESS ARTERIAL (BEAKER) -4.8 mmol/L -2.0-3.0 L (test code = 387) PATIENT TEMPERATURE (BEAKER) 36.2 (test code = 1818) STREP PNEUMONIAE [id number] 23:44:59 Test Item Value Reference Range Interpretation Comments STREP PNEUMONIAE Presumptive negative Presumptive negative ANTIGEN (BEAKER) for pneumococcal for pneumococcal (test code = 1615) pneumonia - see pneumonia - see comment commen Presumptive negative for pneumococcal pneumonia, suggesting no current or recent pneumococcal infection. Infection due to S. pneumoniae cannot be ruled out since the antigen present in the sample may be below the detection limit of the test. LEGIONELLA ANTIGEN, [id number] 23:43:08 Test Item Value Reference Range Interpretation Comments L. PNEUMOPHILA Negative - see Negative fo r L. SEROGP 1 UR AG comment pneumophila (BEAKER) (test code serogrou p 1 antigen, = 1156) suggesting no r ecent or current infe ction with this serog roup. Legionellosis c annot be ruled out si nce other serogroup s and species may cau se disease. IRON, TIBC, % SAT. (WITHOUT FERRITIN)2021-10-28 23:36:52 Test Item Value Reference Range Interpretation Comments IRON (BEAKER) (test code = 547) 59.0 ug/dL 40.0-160.0 TOTAL IRON BINDING CAPACITY < ug/dL 250-450 L (BEAKER) (test code = 769) IRON % SATURATION (2) (BEAKER) > % 20-55 H (test code = 2590) Bath Mix Operator ID - [id number] 23:15:00 Test Item Value Reference Range Interpretation Comments PROCALCITONIN (BEAKER) (test code 65.67 ng/mL <0.05 HH = 3036) SEPSIS RISK (ng/mL)Low: 0.05-0.50Intermediate: 0.51-2.00High: >=2.01SARS-COV2/RT-PCR ([facility])2021-10-28 22:32:18 Test Item Value Reference Range Interpretation Comments SARS-COV2/RT-PCR Negative Negative The SARS-Co V-2 target (test code = nucleic acids a re not [id number]) detected in thi s specimen. Negative result s do not preclude SARS-C oV-2 infection and s hould not be used as the ludwin e basis for patient managem ent decisions. Nega tive results must be combine d with clinical observ ations, patient history , and epidemiological information. A false negativ e result may occur if a spec imen is improperly nelda ected, transported or handled. This SARS CoV-2 test is a rapid, real-demi e RT-PCR test intended for th e qualitative detection of nu cleic acid from SARS-CoV-2 in a nasopharyngeal swab specimen collected from individuals suspected of CO VID-19 by [facility]. This test has been authorized by FDA under an EUA for use by authorized laboratories. This test is only authorized for the duration of the declaration that circumstances exist justifying the authorization of emergency use of in vitro diagnostic tests for detection and/or diagnosis of COVID-19 under Section 564(b)(1) of the Federal Food, Drug and Cosmetic Act, 21 U.S.C. 360bbb- 3(b)(1), unless the authorization is terminated or revoked sooner. Fact Sheet for Healthcare Providers: https://www.Wish/Documents/Xpert%20Xpress%20SARS%20CoV-2/Fact%20Sheets/3023802%20SARS-COV -2%20HEALTHCARE%20PROVIDERS%20FACT%20SHEET.pdf Fact Sheet for Healthcare Patients: https://www.mgMEDIA/Documents/Xpert %20Xpress%20SARS%20CoV-2/Fact%20Sheets/3023801%63KXHI-VYN-7%20PATIENT%20FACT%20 SHEET.pdfLITHIUM [id number] 22:14:37 Test Item Value Reference Range Interpretation Comments LITHIUM LEVEL (BEAKER) (test code = < mmol/L 0.8-1.2 L 630) Bath Mix Operator ID - BSRAD, CHEST, 1 VIEW, NON [id number] 21:46:00Reason for exam:- >Respiratory failureShould this be performed at the bedside?->Yes [facility] 1960 Sex: FFINAL REPORT EXAM: Chest one view COMPARISON: June 02, 2012 CLIN ICAL HISTORY: Respiratory failure FINDINGS: The endotracheal tube overlies the trachea with its tip approximately 3 cm above the billy. The tip of the nasogastric tube overlies the proximal gastric body. There is no evidence of pulmonary consolidation, pleural effusion, or pneumothorax. The cardiac size is within normal limits. The regional osseous structures are unremarkable. Signed: Anali Nicholas MDReport Verified Date/Time: 10/28/2021 21:46:32 (MANUAL DIFFERENTIAL)2021-10-28 20:30:00 Test Item Value Reference Range Interpretation Comments NEUTROPHILS - REL (DIFF) (BEAKER) 72 % (test code = 1359) LYMPHOCYTES - REL (DIFF) (BEAKER) 26 % (test code = 1360) MONOCYTES - REL (DIFF) (BEAKER) 2 % (test code = 1361) EOSINOPHILS - REL (DIFF) (BEAKER) 0 % (test code = 1362) BASOPHILS - REL (DIFF) (BEAKER) 0 % (test code = 1363) NEUTROPHILS - ABS (DIFF) (BEAKER) 3.60 K/ L 1.80-8.00 (test code = 1365) LYMPHOCYTES - ABS (DIFF) (BEAKER) 1.30 K/ L 1.48-4.50 L (test code = 1366) MONOCYTES - ABS (DIFF) (BEAKER) 0.10 K/ L 0.00-1.30 (test code = 1367) EOSINOPHILS - ABS (DIFF) (BEAKER) 0.00 K/ L 0.00-0.50 (test code = 1368) BASOPHILS - ABS (DIFF) (BEAKER) 0.00 K/ L 0.00-0.20 (test code = 1369) TOTAL COUNTED (BEAKER) (test code = 100 1351) WBC MORPHOLOGY (BEAKER) (test code Normal = 487) PLT MORPHOLOGY (BEAKER) (test code Normal = 486) RBC MORPHOLOGY (BEAKER) (test code Normal = 762) CBC W/PLT COUNT & AUTO [id number] 20:29:59 Test Item Value Reference Range Interpretation Comments WHITE BLOOD CELL COUNT (BEAKER) 5.0 K/ L 4.0-10.0 (test code = 775) RED BLOOD CELL COUNT (BEAKER) 2.37 M/ L 4.00-5.00 L (test code = 761) HEMOGLOBIN (BEAKER) (test code = 7.5 GM/DL 12.0-15.5 L 410) HEMATOCRIT (BEAKER) (test code = 22.1 % 36.0-46.0 L 411) MEAN CORPUSCULAR VOLUME (BEAKER) 93.2 fL 82.0-99.0 (test code = 753) MEAN CORPUSCULAR HEMOGLOBIN 31.6 pg 27.0-33.0 (BEAKER) (test code = 751) MEAN CORPUSCULAR HEMOGLOBIN CONC 33.9 GM/DL 32.0-36.0 (BEAKER) (test code = 752) RED CELL DISTRIBUTION WIDTH 17.7 % 12.0-15.0 H (BEAKER) (test code = 412) PLATELET COUNT (BEAKER) (test code 96 K/CU MM 150-430 L = 756) MEAN PLATELET VOLUME (BEAKER) 11.1 fL 6.0-11.5 (test code = 754) NUCLEATED RED BLOOD CELLS (BEAKER) 0 /100 WBC 0-0 (test code = 413) [id number] 20:27:34 Test Item Value Reference Range Interpretation Comments FERRITIN (BEAKER) (test code = 2208.19 ng/mL 10.00-291.00 H 361) Bath Mix Operator ID - BRUCEOperator ID - BRUCEURINALYSIS [id number] 19:16:45 Test Item Value Reference Range Interpretation Comments RBC UA-MANUAL (BEAKER) (test code = >100 /HPF 1659) WBC UA-MANUAL (BEAKER) (test code = >100 /HPF 1661) BACTERIA (BEAKER) (test code = 517) Many SQUAMOUS EPITHELIAL MANUAL (BEAKER) <5 /HPF (test code = 1663) URINALYSIS WITH MICROSCOPIC IF [id number] 19:15:22 Test Item Value Reference Range Interpretation Comments COLOR (BEAKER) (test code = 470) Brown CLARITY (BEAKER) (test code = 469) Turbid SPECIFIC GRAVITY UA (BEAKER) (test 1.020 1.001-1.035 code = 468) PH UA (BEAKER) (test code = 467) 6.0 5.0-8.0 PROTEIN UA (BEAKER) (test code = 100 mg/dL Negative A 464) GLUCOSE UA (BEAKER) (test code = Negative Negative 365) KETONES UA (BEAKER) (test code = Trace Negative A 371) BILIRUBIN UA (BEAKER) (test code = Positive Negative A 462) BLOOD UA (BEAKER) (test code = 461) Large Negative A NITRITE UA (BEAKER) (test code = Positive Negative A 465) LEUKOCYTE ESTERASE UA (BEAKER) Moderate Negative A (test code = 466) UROBILINOGEN UA (BEAKER) (test code 0.2 mg/dL 0.2-1.0 = 463) SOURCE(BEAKER) (test code = 2795) RAPID DRUG SCREEN, [id number] 19:00:32 Test Item Value Reference Range Interpretation Comments BARBITURATE URINE (BEAKER) (test Negative Negative code = 725) BENZODIAZEPINE SCREEN URINE (BEAKER) Negative Negative (test code = 726) COCAINE (METAB.) SCREEN (BEAKER) Negative Negative (test code = 1164) OPIATE SCREEN URINE (BEAKER) (test Negative Negative code = 734) CANNABINOID SCREEN URINE (BEAKER) Negative Negative (test code = 727) AMPH/METHAMPH SCREEN (BEAKER) (test Negative Negative code = 1438) PHENCYCLIDINE SCREEN URINE (BEAKER) Negative Negative (test code = 608) PH UA (BEAKER) (test code = 467) 6.0 5.0-8.0 DRUG CUTOFF CONC.Cocaine 300 ng/mLCannabinoid 50 ng/mLBenzodiazepine 200 ng/mLBarbiturate 200 ng/mLPhencyclidine 25 ng/mLOpiate 300 ng/mLAmphetamine/ 1000 ng/mL MethamphetamineThis assay provides an unconfirmed qualitative test result for the clinical management of patients in emergency situations. Chain of custody not maintained. Some uozs-anp-adppxpt medications, as well as adulterants, may cause inaccurate results. Clinical correlation should be applied. A more comprehensive drug screen or confirmation of a detected drug may be performed upon request.Bath Mix Operator ID - BRUCELACTATE DEHYDROGENASE (LDH)2021-10-28 18:39:56 Test Item Value Reference Range Interpretation Comments LACTATE DEHYDROGENASE (BEAKER) (test 173 U/L 107-206 code = 635) Bath Mix Operator ID - BRUCEOperator ID - NLYLEACETAMINOPHEN [id number] 18:30:23 Test Item Value Reference Range Interpretation Comments ACETAMINOPHEN LEVEL (BEAKER) (test < ug/mL 10.0-30.0 L code = 344) Bath Mix Operator ID - BRUCECOMPREHENSIVE METABOLIC [id number] 18:29:24 Test Item Value Reference Range Interpretation Comments TOTAL PROTEIN 4.6 gm/dL 6.0-8.5 L (BEAKER) (test code = 770) ALBUMIN (BEAKER) 1.6 g/dL 3.5-5.0 L (test code = 1145) ALKALINE PHOSPHATASE 194 U/L 30-115 H (BEAKER) (test code = 346) BILIRUBIN TOTAL 0.5 mg/dL 0.1-1.2 (BEAKER) (test code = 377) SODIUM (BEAKER) (test 137 meq/L 135-148 code = 381) POTASSIUM (BEAKER) 2.8 meq/L 3.6-5.5 L (test code = 379) CHLORIDE (BEAKER) 108 meq/L 98-106 H (test code = 382) CO2 (BEAKER) (test 10 meq/L 20-29 LL code = 355) BLOOD UREA NITROGEN 38 mg/dL 10-26 H (BEAKER) (test code = 354) CREATININE (BEAKER) 2.51 mg/dL 0.50-1.20 H (test code = 358) GLUCOSE RANDOM 158 mg/dL 70-110 H (BEAKER) (test code = 652) CALCIUM (BEAKER) 6.3 mg/dL 8.5-10.5 L (test code = 697) AST (SGOT) (BEAKER) 16 U/L 5-40 (test code = 353) ALT (SGPT) (BEAKER) 19 U/L 5-50 (test code = 347) EGFR (BEAKER) (test 19 mL/min/1.73 ESTIMA JULIAN GFR IS code = 1092) sq m NOT ACCURATE CREATININE CLEARANCE IN PREDICTING GLOMERULAR FILTRATION RATE . ESTIMATED GFR I S NOT APPLICABLE FOR DIALYSIS PATIEN TS. Bath Mix Operator ID - BRUCEBLOOD GAS, [id number] 18:22:52 Test Item Value Reference Range Interpretation Comments PH ARTERIAL (BEAKER) (test code 7.16 7.35-7.45 LL = 383) PCO2 ARTERIAL (BEAKER) (test 36 mm Hg 35-45 code = 384) PO2 ARTERIAL (BEAKER) (test code 198 mm Hg 80-90 H = 385) O2 SATURATION ARTERIAL (BEAKER) 99.4 % 96.0-97.0 H (test code = 386) HCO3 ARTERIAL (BEAKER) (test 13 mmol/L 21-29 L code = 388) BASE EXCESS ARTERIAL (BEAKER) -13.9 mmol/L -2.0-3.0 L (test code = 387) PATIENT TEMPERATURE (BEAKER) 37.0 (test code = 1818) C-REACTIVE [id number] 18:18:36 Test Item Value Reference Range Interpretation Comments C-REACTIVE PROTEIN (BEAKER) (test 14.30 mg/dL 0.00-1.00 H code = 676) Bath Mix Operator ID - NLYLELACTIC ACID, [id number] 18:16:00 Test Item Value Reference Range Interpretation Comments LACTATE BLOOD VENOUS (2) (BEAKER) 7.05 mmol/L 0.50-2.00 HH (test code = 2872) Bath Mix Operator ID - JEAN MARIEB-TYPE NATRIURETIC FACTOR (BNP)2021-10-28 18:13:30 Test Item Value Reference Range Interpretation Comments B-TYPE NATRIURETIC PEPTIDE (BEAKER) 206 pg/mL 0-100 H (test code = 700) Bath Mix Operator ID - NLYLETROPONIN [id number] 18:12:51 Test Item Value Reference Range Interpretation Comments TROPONIN I (BEAKER) (test code = 0.03 ng/mL 0.00-0.03 397) Troponin I (TnI) levels must be interpreted in the context of the presenting symptoms and the clinical findings. Elevated TnI levels indicate myocardial damage, but are not specific for ischemic heart disease. Elevated TnI levels are seen in patients with other cardiac conditions (including myocarditis and congestive heart failure), and slight TnI elevations occur in patients with other conditions, including sepsis, renal failure, acidosis, acute neurological disease, and persistent tachyarrhythmia.Bath Mix Operator ID - [id number] 18:12:29 Test Item Value Reference Range Interpretation Comments MAGNESIUM (BEAKER) (test code = 2.5 mg/dL 1.5-3.0 627) Bath Mix Operator ID - [id number] 18:12:29 Test Item Value Reference Range Interpretation Comments PHOSPHORUS (BEAKER) (test code = 4.9 mg/dL 2.5-4.5 H 604) Bath Mix Operator ID - [id number] 18:05:50 Test Item Value Reference Range Interpretation Comments D-DIMER QUANTITATIVE 0.76 MG/L FEU <0.50 H Final Information (FADY) (test code = (Auto Output) 671) REGARDING D-DIMER RESULTS: The 98% NPV (Negative Predictive Value) for DVT/PE exclusion is 0.50 mg/LFEU as suggested by the project development coordinator and as approved by the FDA.CT CHEST W/O CONTRAST *OW*2021-07-21 01:26:17 [facility] : 1960 Sex: FExam: CT thorax without contrast.Location: H 12History: Rib painTechnique: Unenhanced slices were taken from the apices of the lungs, through the upper abdomen. Sagittal and coronal reformations were performed. One or more of the following dose reduction techniques were used: Automated exposure control, adjustment of the mA and/or kV according to patient size, and/or utilization of iterative reconstruction technique.Findings:The lungs are emphysematous but clear. NNo infiltration [...] fractures are noted.The visualized upper abdominal organs areunremarkable. A right hepatic cyst is notedNo incidental thyroid nodules are noted.Impression: 1. Left 6th and 7th rib fractures.2. No acute disease.3. COPD4. Cardiomegaly with CAD.Electronically signed by: Misbah Colindres MD 07/21/2021 1:26 AM CDT W/AUTO [id number] 05:18:00 Test Item Value Reference Range Interpretation Comments WHITE BLOOD CELL (test code = 8.7 x10 3/uL 4.8-10.8 N WBC) RED BLOOD CELL (test code = 2.65 x10 6/uL 4.20-5.40 L RBC) HEMOGLOBIN (test code = HGB) 10.2 g/dL 12.0-16.0 L HEMATOCRIT (test code = HCT) 31.8 % 37.0-47.0 L MEAN CELL VOLUME (test code = 120.0 fL 81.0-99.0 H MCV) MEAN CELL HGB (test code = MCH) 38.5 pg 27-31 H MEAN CELL HGB CONCENTRATION 32.1 G/DL 33-36.5 L (test code = MCHC) RED CELL DISTRIBUTION WIDTH 14.4 % 12.9-16.9 N (test code = RDW) PLATELET COUNT (test code = 157 x10 3/uL 150-440 N PLT) MEAN PLATELET VOLUME (test code 10.8 fL 8.9-12.4 N = MPV) NEUTROPHIL % (test code = NT%) 71.8 [...] = BA#) 0.01 x10 3/uL 0.0-0.20 N [id number] 23:23:00 Test Item Value Reference Range Interpretation Comments VANCOMYCIN (test code = VANCO) 13.2 mcg/mL COAGULATION TIME [id number] 17:31:00 Test Item Value Reference Range Interpretation Comments COAGULATION TIME ACTIVATED (test 291 SECONDS 74-137 H code = ACT) THROMBOPLASTIN TIME [id number] 13:25:00 Test Item Value Reference Range Interpretation Comments THROMBOPLASTIN TIME 115.0 SECONDS 23.8-34.8 HH Critica l Value PARTIAL (test code = reporte d toFirst PTT) Name:ASHA Last Name:ANA FRANKIE READ BACK AND VERIFIEDby [facility] [id number], on 05/30/21, @ 1325.INTERPRETA TIVE DATA:Therapeuti c range: Unfractionated heparin:55 - 80 seconds Argatroban:1.5 to 3 times the basel ine PTT [id number] 13:25:00 Test Item Value Reference Range Interpretation Comments FIBRINOGEN (test code = FIB) 277 mg/dL 200-400 N BASIC METABOLIC [id number] 13:11:00 Test Item Value Reference Range Interpretation [...] CA) Reference Range May 2020 CBC W/AUTO [id number] 12:14:00 Test Item Value Reference Range Interpretation [...] BA#) 0.04 x10 3/uL 0.0-0.20 N RECOLLECTVANCOMYCIN [id number] 22:10:00 Test Item Value Reference Range Interpretation Comments VANCOMYCIN TROUGH (test code = 30.3 mcg/dL 10.0-20.0 H VANCT) PROTHROMBIN [id number] 21:12:00 Test Item Value Reference Range Interpretation [...] 2.5-3.5recurren t systemic emboli sm. RECOLLECTTHROMBOPLASTIN TIME [id number] 21:12:00 Test Item Value Reference Interpretation Comments Range THROMBOPLASTIN TIME 54.3 SECONDS 23.8-34.8 H SAMPLE W RECOLLECTED PARTIAL (test code AND MATCH ES PREVIOUS = PTT) RESULTINTERPRET ATIVE DATA:Therapeuti c range: Unfractionated heparin:55 - 80 seconds Argatroban:1.5 to 3 times the baseline PT T RECOLLECTCBC W/AUTO [id number] 05:02:00 Test Item Value Reference Range Interpretation [...] BA#) 0.04 x10 3/uL 0.0-0.20 N RECOLLECTPROTHROMBIN [id number] 04:56:00 Test Item Value Reference Range Interpretation [...] 2.5-3.5recurren t systemic emboli sm. THROMBOPLASTIN TIME [id number] 04:56:00 Test Item Value Reference Range Interpretation Comments THROMBOPLASTIN TIME 128.4 SECONDS 23.8-34.8 HH Critica l Value PARTIAL (test code = reporte d toFirst PTT) Name:JOS campuzano Name:BRADLEYRICHELLEShar LOCKE READ BACK AND VERIFIEDby STAR ROGERS, on 05/29/21, @ 3264.INTERPRETA TIVE DATA:Therapeuti c range: Unfractionated heparin:55 - 80 seconds Argatroban:1.5 to 3 times the basel ine PTT BASIC METABOLIC [id number] 04:05:00 Test Item Value Reference Range Interpretation [...] New = CA) Reference Range May 2020 [id number] 04:02:00 Test Item Value Reference Range Interpretation Comments PHOSPHOROUS (test code 3.5 mg/dL 2.4-5.1 N Pleas e note: New = PHOS) Reference Range May 2020 [id number] 04:02:00 Test Item Value Reference Range Interpretation Comments MAGNESIUM (test code = 1.8 mg/dL 1.6-2.6 N Pleas e note: New MAG) Reference Range May 2020 VANCOMYCIN [id number] 02:40:00 Test Item Value Reference Range Interpretation Comments VANCOMYCIN TROUGH (test code = 36.1 mcg/dL 10.0-20.0 H VANCT) LACTIC [id number] 00:53:00 Test Item Value Reference Range Interpretation Comments LACTIC ACID (test code = LACT) 1.50 mmol/L 0.5-2.0 N COVID 19 INHOUSE [id number] 22:11:00 Test Item Value Reference Range Interpretation Comments COVID 19 INHOUSE NEGATIVE NEGATIVE Negative re sults, from AG (test code = patients wit h symptom onset [id number]) beyondfive days , should be treated as pres umptive and confirmationwit h a molecular assay, if neces mel for patientmanageme nt, may be performed. Nega tive results do not ruleout COVID-19 and should not be u sed as the sole basis fort reatment or patient managem ent decisions, includinginfect ion control decisions. Nega tive results should beconsid ered in the context of a pa adan's recent exposure s,history and the presence of clinical signs and sympt omsconsistent with COVID-19. BASIC METABOLIC [id number] 19:38:00 Test Item Value Reference Range Interpretation [...] CA) Reference Range May 2020 LIVER FUNCTION [id number] 19:38:00 Test Item Value Reference Range Interpretation [...] = ALKP) Reference Range May 2020 PROTHROMBIN [id number] 19:38:00 Test Item Value Reference Range Interpretation [...] 2.5-3.5recurren t systemic emboli sm. THROMBOPLASTIN TIME [id number] 19:38:00 Test Item Value Reference Range Interpretation Comments THROMBOPLASTIN TIME 31.6 SECONDS 23.8-34.8 N INTERPRE TATIVE PARTIAL (test code = DATA:Th erapeutic PTT) range: Unfractionated heparin:55 - 80 seconds Argatroban:1.5 to 3 times the basel ine PTT [id number] 19:38:00 Test Item Value Reference Range Interpretation Comments FIBRINOGEN (test code = FIB) 317 mg/dL 200-400 N LACTIC [id number] 19:35:00 Test Item Value Reference Range Interpretation Comments LACTIC ACID (test 4.40 mmol/L 0.5-2.0 HH Critical V alue reported code = LACT) toFirst Name:deandre gallo Last Name:toyin strange rnRESULTS READ BACK AND VERIFIEDby PGeoffreyLA B.RS, on 05/28/21, @ 193 5. - XR FOOT 3 + V [id number] 19:33:00 [facility] : 1960 Sex: FPatient Name: TYRESE PUCKETT Unit No: [id number] EXAMS: CPT CODE: [id number] XR FOOT 3 + [place] [id number] X-ray left foot. Location code: B2 INDICATION: [...] M.D. CC: Herberth Blood MD Technologist: Gab Erico Fluoro Time: DAP (Gy m2): Air Kerma (mGy): Trscr Dt/Tm: 05/28/2021 (1932) by:[email or web address] Printed Date/Time: 05/28/2021 (1935) Name: TYRESE PUCKETT [facility] Phys: Herberth Montemayor MD [address] : 1960 Age: 61 Sex: [place] [address] Loc: Dustin Date: 05/28/2021 Status: REG ER PH: FAX: PAGE 1 Signed ReportCBC W/AUTO [id number] 19:27:00 Test Item Value Reference Range Interpretation [...] 3/uL 0.0-0.20 N - XR CHEST 1 [id number] 19:27:00 [facility] : 1960 Sex: FPatient Name: TYRESE PUCKETT Unit No: [id number] EXAMS: CPT CODE: [id number] XR CHEST 1 V 36374 HISTORY: Code sepsis Location code: [id number]: Frontal view of the chest demonstrates a [...] Printed Date/Time: 05/28/2021 (1929) Name: TYRESE PUCKETT [facility] Phys: Herberth Montemayor MD [address] : 1960 Age: 61 Sex: [place] [address] Loc: P.ERS Exam Date: 05/28/2021 Status: REG ER PH: FAX: PAGE 1 Signed ReportMetyLyte 8 Panel *OW* [id number] 06:39:00 Test Item Value Reference Range Interpretation [...] TOE/S LEFT COMPLETE 3 VIEWS *OW*2021-05-27 06:25:19 [facility] : 1960 Sex: FEXAMINATION: [...] by: Sam Acuna MD 05/27/2021 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 [id number] 18:06:00 Test Item Value Reference Range Interpretation Comments VANCOMYCIN TROUGH (test code = 13.0 mcg/dL 10.0-20.0 N VANCT) RENAL FUNCTION [id number] 05:52:00 Test Item Value Reference Range Interpretation [...] code = PHOS) Reference Range May 2020 [id number] 17:32:00 Test Item Value Reference Range Interpretation Comments VANCOMYCIN (test code = VANCO) 14.4 mcg/mL BASIC METABOLIC [id number] 06:17:00 Test Item Value Reference Range Interpretation [...] CA) Reference Range May 2020 CBC W/AUTO [id number] 05:59:00 Test Item Value Reference Range Interpretation [...] BA#) 0.04 x10 3/uL 0.0-0.20 N VANCOMYCIN [id number] 16:32:00 Test Item Value Reference Range Interpretation Comments VANCOMYCIN TROUGH (test code = 30.8 mcg/dL 10.0-20.0 H VANCT) VITAMIN [id number] 06:00:00 Test Item Value Reference Range Interpretation Comments VITAMIN B12 (test 189 pg/mL 211-911 L Please not e: New code = VITB12) Reference Ran ge May 2020 FOLIC [id number] 06:00:00 Test Item Value Reference Range Interpretation Comments FOLIC ACID (test 3.37 ng/mL > 5.38 L Please note : New code = FOL) Reference Range May 2020 B-TYPE NATRIURETIC [id number] 05:57:00 Test Item Value Reference Range Interpretation Comments B-TYPE NATRIURETIC PEPTIDE (test 172 pg/mL <100 H code = BNP) BASIC METABOLIC [id number] 05:57:00 Test Item Value Reference Range Interpretation [...] CA) Reference Range May 2020 CBC W/AUTO [id number] 05:49:00 Test Item Value Reference Range Interpretation [...] AVG 11.04~~~~~~~~~~ ~~~~~~~ ~~~~~~~~~~~~~~~ ~~~~~~~ ~~~~~~~~~~~~~~~ ~~~~~~N [facility] segundo Education (VTEP ) Guidelines:~~~~ ~~~~~~~ ~~~~~~~~~~~~~~~ ~~~~~~~ ~~~~~~~~~~~~~~~ ~~~~~~~ ~~~~~ HDL Cholesterol<4 0mg/dL: HDL Cholesterol (Major risk factor for CHD)>60mg/dL: H DL Cholesterol (Ne gative risk factor for CHD)40-59mg/dL: Borderline Risk L DL Cholesterol<1 00mg/dL : Desirable LDL -C ofmddathnpdqj95 0-159mg /dL: Borderline High Risk LDL-C crusfiuedtimu95 0-189mg /dL: High risk LDL-C concentration H DL-LDL Cholesterol is affected by a n umber of factors such as smoking, age an d sex.~~~~~~~~~~~ ~~~~~~~ ~~~~~~~~~~~~~~~ ~~~~~~~ ~~~~~~~~~~~~~~~ ~~~~~ [id number] 03:07:00 Test Item Value Reference Range Interpretation Comments PHOSPHOROUS (test code 4.2 mg/dL 2.4-5.1 N Pleas e note: New = PHOS) Reference Range May 2020 [id number] 03:07:00 Test Item Value Reference Range Interpretation Comments MAGNESIUM (test code = 1.9 mg/dL 1.6-2.6 N Pleas e note: New MAG) Reference Range May 2020 BASIC METABOLIC [id number] 03:04:00 Test Item Value Reference Range Interpretation [...] CA) Reference Range May 2020 CBC W/AUTO [id number] 03:04:00 Test Item Value Reference Range Interpretation [...] N - CTA ABD AORTA IF LWEX [id number] 22:44:00 [facility] : 1960 Sex: FPatient Name: TYRESE PUCKETT Unit No: [id number] EXAMS: CPT CODE: [id number] [place] [address] EXAMINATION: - CTA ABD AORTA IF LWEX [...] both ankles. 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 [address] : 1960 Age: 61 Sex: [place] [address] Loc: P.0635 1 Exam Date: 05/14/2021 Status: ADM IN PH: FAX: PAGE 1 Signed Report (CONTINUED) Patient Name: TYRESE PUCKETT Unit No: [id number] EXAMS: CPT CODE: [id number] [place] [address] <Continued> Soft tissue swelling is seen around [...] BRICE ACUNA RT(R),(CT) CTDI: 20.72 DLP[facility] Dt/Tm: 05/14/2021 (2243) by:[email or web address] Printed Date/Time: 05/14/2021 (2246) Name: TYRESE PUCKETT [facility] Phys: Cathy Buenrostro [address]N [address] : 1960 Age: 61 Sex: [place] [address] Loc: P.0635 1 Exam Date: 05/14/2021 Status: ADM IN PH: FAX: PAGE 2 Signed Report- XR FOOT 3 + V [id number] 22:15:00 [facility] : 1960 Sex: FPatient Name: TYRESE PUCKETT Unit No: [id number] EXAMS: CPT CODE: [id number] XR FOOT 3 + [place] [address] EXAMINATION: - XR FOOT 3 + V [...] m2): Air Kerma (mGy): Trscr Dt/Tm: 05/14/2021 (2214) by:[email or web address] Printed Date/Time: 05/14/2021 (2217) Name: ITALOTYRESE [facility] Phys: Madhav Cardona MD [address] : 1960 Age: 61 Sex: F [place], [place] [address] [id number] Loc: P.0635 1 Exam Date: 05/14/2021 Status: ADM IN PH: FAX: PAGE 1 Signed ReportCOMPREHENSIVE METABOLIC [id number] 19:08:00 Test Item Value Reference Range Interpretation [...] Reference Range May 2020 HGBA1C - GLYCOSYLATED [id number] 18:04:00 Test Item Value Reference Range Interpretation Comments GLYCOSYLATED HEMOGLOBIN 4.7 % <5.7 N Diab etic >/= (HA1C) (test code = 6.5%Pred iabetes GLYHGB) 5.7-6.4%Normal < 5.7% CBC W/MANUAL [id number] 17:56:00 Test Item Value Reference Range Interpretation [...] = BASO) 1 % 0.2-1.0 N PROTHROMBIN [id number] 17:37:00 Test Item Value Reference Range Interpretation [...] 2.5-3.5recurren t systemic emboli sm. THROMBOPLASTIN TIME [id number] 17:37:00 Test Item Value Reference Range Interpretation Comments THROMBOPLASTIN TIME 29.9 SECONDS 23.8-34.8 N INTERPRE TATIVE PARTIAL (test code = DATA: erapeutic PTT) range: Unfractionated heparin:55 - 80 seconds Argatroban:1.5 to 3 times the basel ine PTT XR FOOT LEFT COMPLETE 3 VIEWS *OW*2021-03-09 01:45:03 [facility] : 1960 Sex: FEXAMINATION:XR FOOT LEFT COMPLETE 3 VIEWS *OW*CLINICAL INDICATION:Female, 61 years old with Pain in left footCOMPARISON: NoneFINDINGS:Three view(s) of the foot obtained.Joint spaces: Anatomic.Bones: Noacute fracture.Soft tissues: Moderate swelling at the dorsum of the left forefoot.IMPRESSION: No acute fracture.Moderate swelling of the dorsum of the left forefoot.Electronically signed by: Tony Magaña MD 03/09/2021 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 There is mild joint space narrowing with subchondralsclerosis and osteophyte formation. The soft tissues are unremarkable.IMPRESSION: Mild osteoarthritis with otherwise no acute radiographicabnormality.XR ANKLE RIGHT 2 VIEW *OW*2019-04-03 14:29:56Right ankle, 2 viewsLocation Code: K4IDLYYUNE HISTORY: Ankle painCOMPARISON: None. COMMENTS: AP and [...] 0.010 ng/mL 0.000-0.045 MetyLyte 8 Panel *OW* [id number] 22:06:00 Test Item Value Reference Range Interpretation [...] ABDOMEN AND PELVIS W/O CONTRAST *OW*2018-12-31 00:19:36LOCATION: [id number]: 58-year-old female with periumbilical abdominal pain.COMMENT: Axial [...] *OW*2018-11-11 01:06:25Xray left shoulder 3 viewsLocation Code: E32Dixadwvlqu: None availableCLINICAL HISTORY: PainFindings: No plain radiographic [...] 0.0-10.0 XR ANKLE RIGHT COMPLETE 3 VIEWS *[id number] 21:45:443 views right ankleDictation Location: [id number] HISTORY: Ankle painTechnique:AP, oblique, and lateral views [...] LAT *OW*2018-10-31 22:41:37Right humerus 2 viewsDictation Location: [id number] HISTORY: painTECHNIQUE:AP and lateral views were obtained. FINDINGS: Bony mineralization is normal without lytic or sclerotic lesions. No evidenceof fracture, dislocation, degenerative changes or periostitis. Regional jointspaces are unremarkable. Soft tissues are unremarkable without calcificationor radiopaque foreign bodies.IMPRESSION:No abnormalities demonstrated.XR ABDOMEN 2 VIEWS W/PA CHEST *OW*2018-10-27 21:10:45 LOCATION: [id number]: 58-year-old female with constipation.COMMENT:Supine and upright radiographs ofthe abdomen were obtained along with afrontal chest radiograph. The abdomen is compared to a prior study bahfknmi46/30/19, and the chest is compared to a [...] in the abdomen examination.XR KNEE LEFT 3 [id number] 15:50:45Left knee, 3 viewsLocation Code: B1FBNNHKBT HISTORY:[id number]: Pain in left kneeCOMMENTS: AP, lateral, and [...] XR KNEE LEFT 3 VIEWS *OW*2018-10-07 21:40:26LOCATION: [id number]: 58-year-old female who suffered an unspecified fall.COMMENT: Frontal, oblique, and lateral radiographs of the left knee were obtained.An older examination obtained 09/17/18 is available for comparison.The skeleton is intact, and normally mineralized. The joint spaces are wellmaintained. The soft tissues are unremarkable. IMPRESSION:Unremarkable radiographic examination of the left knee.XR KNEE LEFT 3 VIEWS *OW*2018-09-17 00:43:54LOCATION: [id number]: 58-year-old female who presents with left knee pain after suffering afall.COMME NT: Frontal, oblique, and lateral radiographs of the left knee were obtained.The skeleton is intact, and normally mineralized. The joint spaces are wellmaintained. The soft tissues are unremarkable. IMPRESSION:Unremarkable radiographic examination of the left knee.XR SPINE LUMBAR COMPLETE *OW* 2018-09-17 00:38:17LOCATION: [id number]: 58-year-old female with back pain.COMMENT:Frontal, lateral, L5-S1 [...] lumbar spine.XR ANKLE RIGHT COMPLETE 3 VIEWS *[id number] 21:39:143 views right ankleLocation: P87EXEYQYOD HISTORY: Ankle painTechnique:AP, oblique, and lateral views [...] 3 VIEWS *OW*2018-09-01 21:34:26Left shoulder 3 viewsLocation: N90BNVTGOGN HISTORY: painTechnique:Transscapular Y Internal and external rotation views were obtained. Findings:Bony mineralization is normal without focal osteolytic orblastic lesions. ACjoint normal. No evidence of degenerative spurring or subchondral sclerosis. Nofracture or dislocation. Soft tissues are normal without soft tissuecalcification or foreign bodies. IMPRESSION:Normal plain films of the left shoulder.XR SHOULDER RIGHT 3VIEWS *OW* 2018-07-26 16:47:59Right shoulder, 3 viewsLocation Code: W2TKKCFNPV HISTORY: Traumatic injuryCOMMENTS: AP views in internal and external rotation along with a transscapularY view of the right shoulder were obtained. There is no acute fracture ormalalignment. The soft tissues are unremarkable.IMPRESSION: No acute abnormality.CT ABDOMEN AND PELVIS W/O CONTRAST *OW*2018-07-20 17:16:50CT abdomen and pelvis without contrastLocation Code: I6BTBCEJSC HISTORY: Lower abdominal painCOMPARISON: 07/18/2018, 07/04/2018Technique: Helical [...] *OW*2018-07-20 17:13:30Portable AP chest, 1 viewLocation Code: F5TRRQGPSR HISTORY: Chest painCOMPARISON: NoneCOMMENT: The lungs are [...] *OW*2018-07-16 18:59:05Exam: KUBHISTORY: Abdominal pain with constipationLocation: G8ZNLLGVBV:Bowel gas pattern is nonspecific without mechanical obstruction. No radiopaquestones are identified. No evidence of visceromegaly.IMPRESSION:1. Unremarkable exam.CT ABDOMEN AND PELVIS W/O CONTRAST *OW*2018-07-04 20:54:58CT OF THE ABDOMEN AND PELVIS WITHOUT CONTRASTLocation code:I4DCIBWUQR HISTORY: Fall, right flank injuryCOMPARISON: None available.TECHNIQUE: [...] ankle 3 views AP, lateral and oblique.Location: Y2MKCDFIE: sp fallen r ankle painFINDINGS: No significant bone or joint abnormality is seen. The bonycortices are intact. The joint spaces are well preserved. The soft tissuesare normal.Impression:Unremarkable exam.XR KNEE RIGHT 3 VIEWS *OW*2018-06-05 21:16:48Exam: Left knee 3 views AP, lateral and obliqueLocation: G1Jhorveu: sp fallen r knee painFindings:Mild degenerative changes are present. No other bone or joint abnormality isseen. The bony cortices are intact. No joint effusion is seen. The soft tissuesare normal.Impression:Osteoarthritis.
== END 2021-10-28 15:16 | disposition short-term general hospital (02) ==
LOC: ER 08:09
PROC: 06HM33Z Insertion of Infusion Device into Right Femoral Vein, Percutaneous Approach (ICD-10-PCS; principal; 2021-10-28)
PROC: 30233N1 Transfusion of Nonautologous Red Blood Cells into Peripheral Vein, Percutaneous Approach (ICD-10-PCS; 2021-10-28)
DX: J18.9 Pneumonia, unspecified organism (principal); R65.21 Severe sepsis with septic shock; N39.0 Urinary tract infection, site not specified; K92.2 Gastrointestinal hemorrhage, unspecified; Z20.822 Contact with and (suspected) exposure to COVID-19; F17.210 Nicotine dependence, cigarettes, uncomplicated; Z88.8 Allergy status to other drugs, medicaments and biological substances; F25.9 Schizoaffective disorder, unspecified
CPT/HCPCS: 92960; 93005 ×2; 87040 ×2; 87088; 85025; 87086; 36415; 86900; 86850; 87205 ×4; 85610; 86901; 83605 ×2; 85730; 87077 ×4; 87186 ×4; 81015; 80053; 71045 ×2; 94002; 82805 ×2; 94003; 31500; 36430 ×2; 51702; 99291; 99292; 36556; U0003; J0153; J2704; C9113 ×2; J3480; J2250; J3010; J3475; P9016; J7050 ×2; J7030 ×3